=== PATIENT | male | born 1975 | race Caucasian/White ===

== ENCOUNTER 2021-09-19 13:40 | Emergency (ER) | payer OTHER ==
[2021-09-19 14:02] LABS: BASOPHILS % (AUTO) 0.5 %; EOSINOPHILS # (AUTO) 0.2 10^3/uL (0.0-0.7); EOSINOPHILS % (AUTO) 3.1 %; HCT - HEMATOCRIT 43.6 % (42.0-52.0); HGB - HEMOGLOBIN 15.5 g/dL (14.0-18.0); LYMPHOCYTES # (AUTO) 1.6 10^3/uL (1.5-3.5); LYMPHOCYTES % (AUTO) 25.4 %; MEAN CORPUSCULAR HEMOGLOBIN 28.5 pg (27.0-31.0); MEAN CORPUSCULAR HGB CONC 35.6 g/dL (32.0-36.0); MEAN CORPUSCULAR VOLUME 80.1 fL (80.0-94.0); MEAN PLATELET VOLUME 10.9 fL (7.4-11.4); MONOCYTES # (AUTO) 0.5 10^3/uL (0.0-1.0); MONOCYTES % (AUTO) 7.2 %; NEUTROPHILS # (AUTO) 4.1 10^3/uL (1.5-6.6); NEUTROPHILS % (AUTO) 63.2 %; PLT - PLATELET COUNT 196 10^3/uL (130-450); RED BLOOD COUNT 5.44 10^6/uL (4.70-6.10); RED CELL DISTRIBUTION WIDTH 13.6 % (12.0-15.0); WHITE BLOOD COUNT 6.4 x10^3/uL (4.8-10.8)
[2021-09-19 14:15] LABS: ALBUMIN 4.5 g/dL (3.2-5.5); ALBUMIN/GLOBULIN RATIO 1.6 (1.0-2.2); BILIRUBIN,TOTAL 0.8 mg/dL (0.2-1.0); CALCIUM 9.5 mg/dL (8.5-10.3); POTASSIUM 3.4 mmol/L (3.5-5.0); TOTAL PROTEIN 7.3 g/dL (6.7-8.2)
[2021-09-19 14:50] LABS: BILIRUBIN,URINE NEGATIVE (NEGATIVE); GLUCOSE, URINE (UA) NEGATIVE (NEGATIVE); KETONES,URINE (UA) NEGATIVE (NEGATIVE); LEUKOCYTE ESTERASE, URINE NEGATIVE (NEGATIVE); NITRITE,URINE NEGATIVE (NEGATIVE); OCCULT BLOOD,URINE SMALL (NEGATIVE); PH,URINE 5.5 PH (5.0-7.5); PROTEIN,URINE NEGATIVE (NEGATIVE); UROBILINOGEN,URINE 0.2 (NORMAL) E.U./dL (NORMAL)
[2021-09-19 14:51] LABS: CLARITY,URINE CLEAR (CLEAR)
[2021-09-19 14:57] LABS: BACTERIA,URINE Few /HPF (None Seen); CASTS, URINE 0-2 Hyaline Casts /LPF; MUCUS,URINE Few Strands; SQUAMOUS EPITHELIAL CELL,UR RARE Squamous (<= Few); WBC,URINE 0-3 /HPF (0-3)
[2021-09-19] MEDS ORDERED: KETOROLAC 30 MG/ML VIAL IVP STA (15:28)
[2021-09-19] MEDS ORDERED: SODIUM CHLORIDE 0.9% 1,000 ML IV STA (15:29)
--- NOTE | 2021-09-19 15:32 | ED Physician Documentation ---
History of Present Illness - Stated complaint Stated Complaint: BACK/SIDE PAIN - Chief complaint Chief Complaint: Abd Pain - Additonal information Additional information: 46-year-old male presents emergency department for evaluation of left flank pain with radiation to his groin and testes. He began having some low back pain about a week ago but over the last 5 to 6 hours he has noticed acute pain in the right flank that he reports is the worst of his life. He has had some nausea but no vomiting. He does have a history of renal colic requiring lithotripsy and bilateral ureter stenting in 2018. This was both in [facility] and [place]. He is a diabetic on Januvia. Also concurrently taking prazosin and Flomax. Review of Systems Constitutional: denies: Fever, Chills Throat: reports: Reviewed and negative Cardiac: reports: Reviewed and negative Respiratory: reports: Reviewed and negative GI: reports: Abdominal Pain. denies: Nausea, Vomiting : denies: Dysuria, Frequency, Hematuria Skin: reports: Reviewed and negative Musculoskeletal: reports: Reviewed and negative PD PAST MEDICAL HISTORY - Present Medications Home Medications: Ambulatory Orders Medication Instructions Recorded Confirmed oxyCODONE [Roxicodone] 5 mg PO TID PRN #15 tablet 09/19/21 - Allergies Allergies/Adverse Reactions: Allergies Allergy/AdvReac Type Severity Reaction Status Date / Time Penicillins Allergy Rash Verified 09/19/21 13:49 PD ED PE NORMAL - General General: Alert and oriented X 3. No: No acute distress (Appears to be in pain) - HEENT HEENT: Atraumatic, Moist mucous membranes - Neck Neck: Supple, no meningeal sign, No adenopathy - Cardiac Cardiac: RRR, No murmur - Respiratory Respiratory: No respiratory distress, Clear bilaterally - Abdomen Abdomen: Normal bowel sounds, Soft. No: Non tender (tenderness with palpation to the left flank) - Back Back: No CVA TTP, No spinal TTP - Derm Derm: Normal color, Warm and dry, No rash - Extremities Extremities: No deformity - Neuro Neuro: Alert and oriented X 3 Eye Opening: Spontaneous Motor: Obeys Commands Verbal: Oriented GCS Score: 15 Results - Vitals Vitals: Vital Signs - 24 hr 09/19/21 09/19/21 09/19/21 13:45 14:43 16:24 Temperature 36.2 C L Heart Rate 79 78 59 L Respiratory 16 16 16 Rate Blood Pressure 137/87 H 125/95 H 133/90 H O2 Saturation 100 96 95 Oxygen O2 Source Room air - Labs Labs: Laboratory Tests 09/19/21 09/19/21 09/19/21 11:41 13:56 13:56 WBC 6.4 RBC 5.44 Hgb 15.5 Hct 43.6 MCV 80.1 MCH 28.5 MCHC 35.6 RDW 13.6 Plt Count 196 MPV 10.9 Neut # (Auto) 4.1 Lymph # (Auto) 1.6 [place] # (Auto) 0.5 Eos # (Auto) 0.2 Baso # (Auto) 0.0 Absolute Nucleated RBC 0.00 Nucleated RBC % 0.0 Sodium 140 Potassium 3.4 L Chloride 100 L Carbon Dioxide 28 Anion Gap 12.0 BUN 19 Creatinine 1.0 Estimated GFR (MDRD) 81 L Glucose 238 H Calcium 9.5 Total Bilirubin 0.8 AST 33 ALT 55 Alkaline Phosphatase 71 Total Protein 7.3 Albumin 4.5 Globulin 2.8 Albumin/Globulin Ratio 1.6 Lipase 32 Urine Color YELLOW Urine Clarity CLEAR Urine pH 5.5 Ur Specific Staples >=1.030 H Urine Protein NEGATIVE Urine Glucose (UA) NEGATIVE Urine Ketones NEGATIVE Urine Occult Blood SMALL H Urine Nitrite NEGATIVE Urine Bilirubin NEGATIVE Urine Urobilinogen 0.2 (NORMAL) Ur Leukocyte Esterase NEGATIVE Urine RBC 6-10 H Urine WBC 0-3 Ur Squamous Epith Cells RARE Squamous Urine Bacteria Few Urine Casts 0-2 Hyaline Casts Urine Mucus Few Strands Ur Microscopic Review INDICATED Urine Culture Comments NOT INDICATED - Rads (name of study) Ct abd Radiology: Final report received (3 mm calculus at the proximal prostatic urethra likely representing a passing urolith. 3 mm nonobstructing right renal stone without hydronephrosis or perinephric stranding. Diverticulosis no-itis. Normal appendix.) PD MEDICAL DECISION MAKING - ED course Complexity details: considered differential, d/w patient, d/w family ED course: 46-year-old male presents emergency department for evaluation of acute left flank pain. He does have a history of renal and ureter colic requiring lithotripsy and stenting in the past. Last episode was in 2018. On presentation here he is modestly painful in the left flank. Screening labs showed no significant worrisome abnormality. Urine is not consistent with infection. A CT of the abdomen without contrast shows nonobstructing calculus at the prostatic urethra likely indicating a passing urolith. He also has some nonobstructing stones in the right kidney. No findings suggest hydroureter or hydronephrosis. 9 patient received a liter of crystalloid as well as Toradol and Dilaudid with modest relief of his pain. Screening labs and CT were discussed with patient his is at bedside. They will request referral to urology for follow-up. A limited prescription for oxycodone is being sent to the pharmacy. Emergent and worrisome return precautions discussed. I am prescribing a short course of short-acting opioid pain medication for this patient. 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 I have discussed that the opioids are for short term therapy only, and will not be refilled from the ED. Departure - Departure Disposition: 01 Home, Self Care Clinical Impression: Renal colic Condition: Stable Record reviewed to determine appropriate education?: Yes Instructions: ED Stone Renal W Colic Prescriptions: oxyCODONE [Roxicodone] 5 mg PO TID PRN #15 tablet PRN Reason: Pain Comments: Alison I hope that you are feeling better soon. You were seen today for pain on the left side of your abdomen. Your screening labs did not show any worrisome findings. There is no infection in your urine. However the CT scan does show some nonobstructing stones in your right kidney as well as findings to suggest that you are currently passing a kidney stone near your urethra. In general I recommend Tylenol 500 mg with food 2-3 times a day or alternate ibuprofen 600 mg with food 2-3 times a day for pain control. For more severe pain a limited prescription of oxycodone has been sent to your pharmacy. Please discuss this ED visit with your primary care provider. You should obtain referral to a urologist for further and longer-term evaluation and management of your renal colic. If at any point you develop worsening symptoms, high fevers uncontrolled vomiting or pain not controlled with this regimen of medication then please return immediately to the ER for a second evaluation. I am prescribing a short course of narcotic pain medication for you. These are potentially dangerous and addictive medications that should be used carefully. These medications may constipate you. Take an ckqj-pwi-dutguzw stool softener (docusate) twice daily with plenty of water while taking these medications. If you go 24 hours without a bowel movement, take [id number] miralax, per package instructions. Do not drink or drive while taking these medications. If you received narcotic or sedating medications while in the emergency department, do not drive for 24 hours. Store this medication in a safe, secure place and out of reach of children. It is a violation of federal law to give or sell this medication to another person or to use in a manner other than prescribed. The ED will not refill narcotic prescriptions, including prescriptions lost or stolen. To dispose of unwanted medications: 1. [facility] [address] in [place] has a medication drop box. They accept prescription medications (in pill form) Friday through Friday 9:00 a.m. to 5:00 p.m. 2. The [facility] [employer] accepts prescription medications (in pill form only) for disposal year round. Call for more information. 3. Contact the [facility] for the next [facility] sponsored prescription drug collection event. , [phone], or [phone]; Note that many narcotic pain relievers also contain Tylenol/acetaminophen. Please ensure that your total dose of acetaminophen from all sources does not exceed 3 g (3000 mg) per day.
[2021-09-19] MEDS ORDERED: ONDANSETRON 4 MG/2 ML VIAL IVP STA (15:52)
[2021-09-19] MEDS ORDERED: HYDROmorphone 1 MG/ML CARPUJECT IVP STA (15:52)
--- NOTE | 2021-09-19 16:13 | CT Report ---
PROCEDURE: Abdomen/Pelvis WO INDICATIONS: ? renal or ureter colic TECHNIQUE: Noncontrast 5 mm thick sections acquired from the diaphragms to the symphysis. 5 mm coronal and sagi ttal reformats were then performed. For radiation dose reduction, the following was used: automated exposure control, adjustment of mA and/or kV according to patient size. COMPARISON: None. FINDINGS: Image quality: Excellent. ABDOMEN: Lung bases: Lung bases are clear. Heart size is normal. Solid organs: Liver and spleen are normal in size. There are geographic areas of fatty infiltration of the liver. Gallbladder is unremarkable. Pancreas is normal in contours. No peripancreatic inflam mation. No adrenal nodules. There is a 3 mm punctate nonobstructing right renal stone without hydron ephrosis or perinephric stranding. Bilateral ureters are normal in course and caliber. No ureteral st ones seen. Left kidney is normal in size, without hydronephrosis or nephrolithiasis. Peritoneum and bowel: Unenhanced bowel loops demonstrate normal wall thickness and caliber. No free fluid or air. Scattered colonic diverticulosis. No acute diverticulitis. Normal appendix. Nodes and vessels: No retroperitoneal or mesenteric adenopathy by size criteria. Aorta and inferior vena cava are normal in caliber. Scattered atherosclerotic calcifications. Miscellaneous: No ventral hernias. PELVIS: Genitourinary: Bladder wall thickness is normal. No urinary bladder stone. There is a 3 mm punctate calcification noted in the central, midline prostate at the expected location of the proximal prostat ic urethra (Image 97/series 3). Miscellaneous: No inguinal hernias or adenopathy. Bones: No suspicious bony lesions. No acute vertebral body compression fractures. IMPRESSION: 1. A 3 mm calculus visualized at the expected location of the proximal prostatic urethra likely repre senting a passing urolith. 2. A 3 mm nonobstructing right renal stone without associated hydronephrosis or perinephric stranding . 3. Normal noncontrast CT appearance of the left kidney without evidence for renal stones or hydroneph rosis. 4. Colonic diverticulosis without acute diverticulitis. 5. Normal appearance of the appendix. 6. Other chronic findings as above Reviewed by: Mc Walls MD on 09/19/2021 4:12 PM PDT Approved by: Mc Walls MD on 09/19/2021 4:12 PM PDT Station ID: [id number]
[2021-09-19 16:25] VITALS: BP 133/90
== END 2021-09-19 16:56 | disposition home or self-care (01) ==
LOC: ED 13:40
DX: N23 Unspecified renal colic (principal)
CPT/HCPCS: 36415; 74176; 80053; 81001; 83690; 85025; 96374; 96375; 99282; 99284; J1170; 81003; 87086

== ENCOUNTER 2022-04-12 12:06 | Outpatient (CLI) | payer OTHER | END 2022-04-12 12:07 | disposition critical access hospital (66) | LOC: EMS 12:06 | DX: R07.89 Other chest pain (principal); R11.0 Nausea; R42 Dizziness and giddiness; I10 Essential (primary) hypertension | CPT/HCPCS: A0425; A0427 ==

== ENCOUNTER 2022-04-12 12:36 | Emergency (ER) | payer OTHER ==
--- NOTE | 2022-04-12 12:49 | ED Physician Documentation ---
PD HPI CHEST PAIN - Stated complaint Stated Complaint: CHEST TIGHTNESS - Chief complaint Chief Complaint: Cardiac - History obtained from History obtained from: Patient - Additional information Additional information: 47-year-old gentleman with history of hypertension and diabetes. No family history or personal history of coronary disease. About a week ago he developed brief shocklike chest pain with diaphoresis while walking. Today he has had 3 episodes of chest pain, all while walking. He developed shocklike pain across the left shoulder heaviness on the left side and diaphoresis with shortness of breath. Each episode lasted 30 seconds to a minute. Then went away. He is pain-free now. He had stress testing maybe 4 years ago which was reportedly negative. No recent travel, pedal edema or calf pain. EMS gave him aspirin prior to arrival. Review of Systems Constitutional: reports: Sweats. denies: Fever, Fatigue Cardiac: reports: Chest pain / pressure Respiratory: reports: Dyspnea PD PAST MEDICAL HISTORY - Past Medical History : Kidney stones - Present Medications Home Medications: Ambulatory Orders Medication Instructions Recorded Confirmed Atorvastatin [Lipitor] 20 mg PO DAILY 04/12/22 04/12/22 Celecoxib [CeleBREX] 100 mg PO DAILY 04/12/22 04/12/22 Chlorthalidone 25 mg PO DAILY 04/12/22 04/12/22 Cyclobenzaprine [Flexeril] 10 mg PO TID PRN 04/12/22 04/12/22 Diclofenac Sodium 1% Gel [Voltaren 2 - 4 gm TOP QID PRN MDD 32 04/12/22 04/12/22 Gel] Duloxetine HCl [Cymbalta] 120 mg PO DAILY 04/12/22 04/12/22 Gabapentin [Neurontin] 1 - 2 cap PO TID PRN 04/12/22 04/12/22 Lisinopril [Zestril] 40 mg PO DAILY 04/12/22 04/12/22 Nitroglycerin [Nitrostat] 0.4 mg SL Q5MIN PRN #1 tab 04/12/22 Prazosin [Minipress] 3 - 5 cap PO DAILY PM 04/12/22 04/12/22 Sildenafil Citrate 0 mg PO ONCE 04/12/22 04/12/22 Sitagliptin Phos/Metformin HCl 1 each PO BID 04/12/22 04/12/22 [Janumet Xr 50-1,000 mg Tablet] Tamsulosin [Flomax] 1 cap PO DAILY 04/12/22 04/12/22 hydrOXYzine HCL [Hydroxyzine HCl] 25 mg PO DAILY 04/12/22 04/12/22 oxyCODONE [Roxicodone] 5 mg PO ONCE 04/12/22 04/12/22 oxyCODONE [Roxicodone] 5 mg PO Q6H PRN 04/12/22 04/12/22 traZODone [Desyrel] 0.5 - 1.5 mg PO DAILY PM PRN 04/12/22 04/12/22 - Allergies Allergies/Adverse Reactions: Allergies Allergy/AdvReac Type Severity Reaction Status Date / Time Penicillins Allergy Rash Verified 04/12/22 12:46 - Social History Does the pt smoke?: No PD ED PE NORMAL - Vitals Vital signs reviewed: Yes - General General: Alert and oriented X 3, No acute distress - HEENT HEENT: PERRL, EOMI - Neck Neck: Supple, no meningeal sign, No bony TTP - Cardiac Cardiac: RRR, No murmur - Respiratory Respiratory: No respiratory distress, Clear bilaterally - Abdomen Abdomen: Non tender - Back Back: No CVA TTP, No spinal TTP - Derm Derm: Normal color, Warm and dry - Extremities Extremities: No edema, No calf tenderness / cord - Neuro Neuro: Alert and oriented X 3, Normal speech Results - Vitals Vitals: Vital Signs - 24 hr 04/12/22 04/12/22 04/12/22 12:42 13:15 13:30 Temperature 36.6 C Heart Rate 77 68 61 Respiratory 14 16 17 Rate Blood Pressure 135/91 H 139/87 H 126/93 H O2 Saturation 100 98 97 04/12/22 04/12/22 04/12/22 14:00 14:30 15:00 Temperature Heart Rate 68 64 64 Respiratory 17 16 19 Rate Blood Pressure 138/85 H 137/83 H 137/92 H O2 Saturation 99 99 95 04/12/22 16:05 Temperature Heart Rate 61 Respiratory 15 Rate Blood Pressure 143/88 H O2 Saturation 96 Oxygen O2 Source Room air - EKG (time done) 1240 Rate: Rate (enter#) (78) Rhythm: NSR [place]: Normal Intervals: Normal MO QRS: Normal Ischemia: Normal ST segments - Labs Labs: Laboratory Tests 04/12/22 04/12/22 04/12/22 12:51 12:51 12:51 WBC 5.7 RBC 5.13 Hgb 14.5 Hct 41.8 L MCV 81.5 MCH 28.3 MCHC 34.7 RDW 13.1 Plt Count 187 MPV 11.1 Neut # (Auto) 3.6 Lymph # (Auto) 1.5 [place] # (Auto) 0.4 Eos # (Auto) 0.2 Baso # (Auto) 0.0 Absolute Nucleated RBC 0.00 Nucleated RBC % 0.0 Sodium 133 L Potassium 3.1 L Chloride 98 L Carbon Dioxide 26 Anion Gap 9.0 BUN 19 Creatinine 0.9 Estimated GFR (MDRD) 91 Glucose 197 H Calcium 8.5 Total Bilirubin 0.7 AST 23 ALT 40 Alkaline Phosphatase 74 Troponin I High Sens 5.6 Total Protein 6.8 Albumin 3.9 Globulin 2.9 Albumin/Globulin Ratio 1.3 Lipase 79 H SARS-CoV-2 (PCR) 04/12/22 04/12/22 14:50 14:54 WBC RBC Hgb Hct MCV MCH MCHC RDW Plt Count MPV Neut # (Auto) Lymph # (Auto) [place] # (Auto) Eos # (Auto) Baso # (Auto) Absolute Nucleated RBC Nucleated RBC % Sodium Potassium Chloride Carbon Dioxide Anion Gap BUN Creatinine Estimated GFR (MDRD) Glucose Calcium Total Bilirubin AST ALT Alkaline Phosphatase Troponin I High Sens 5.1 Total Protein Albumin Globulin Albumin/Globulin Ratio Lipase SARS-CoV-2 (PCR) NOT DETECTED - Rads (name of study) 1v cxr - NAD Radiology: Final report received, EMP read indepedently PD Medical Decision Making - ED course ED course: 47-year-old gentleman with episodic exertional chest pain and risk factors for coronary disease including diabetes and hypertension. Differential diagnosis would include aortic dissection, but the pain is not constant nor does it radiate to the back. There is nothing in the history or physical to suggest PE. His ischemic work-up here was negative, however there is still a significant concern for cardiac chest pain given the exercise-induced nature of the pain. As such calls were placed to tertiary facilities that could do an expedited ischemic work-up at approximately 1:20 PM for transfer. Subsequently a second troponin was done and flat. I discussed the case with Dr Gaurav Pereyra in [place]. He did not feel too concerned about the case nor the need for urgent transfer for an inpatient work- up. Recommended urgent outpatient work-up. Patient agreeable to this. Discussed close return precautions. Departure - Departure Disposition: 01 Home, Self Care Clinical Impression: Chest pain Qualifiers: Chest pain type: unspecified Qualified Code(s): R07.9 - Chest pain, unspecified Condition: Good Record reviewed to determine appropriate education?: Yes Instructions: Angina Dc Prescriptions: Nitroglycerin [Nitrostat] 0.4 mg SL Q5MIN PRN #1 tab PRN Reason: Chest Pain Comments: You were seen today for episodic chest pain, this is concerning to me, but I discussed your case with Dr. Gaurav Jane, labor and delivery nurse in [place] who felt that outpatient work-up was appropriate. If you develop recurrent pain please return immediately for reevaluation after taking a nitroglycerin. Take a baby aspirin a day. Talk with your PCM on Friday after the holiday about rapid referral for stress testing. Discharge Date/Time: 04/12/22 16:05
[2022-04-12 12:56] LABS: BASOPHILS % (AUTO) 0.5 %; EOSINOPHILS # (AUTO) 0.2 10^3/uL (0.0-0.7); HCT - HEMATOCRIT 41.8 % (42.0-52.0); HGB - HEMOGLOBIN 14.5 g/dL (14.0-18.0); LYMPHOCYTES # (AUTO) 1.5 10^3/uL (1.5-3.5); LYMPHOCYTES % (AUTO) 25.7 %; MEAN CORPUSCULAR HEMOGLOBIN 28.3 pg (27.0-31.0); MEAN CORPUSCULAR HGB CONC 34.7 g/dL (32.0-36.0); MEAN CORPUSCULAR VOLUME 81.5 fL (80.0-94.0); MEAN PLATELET VOLUME 11.1 fL (7.4-11.4); MONOCYTES # (AUTO) 0.4 10^3/uL (0.0-1.0); MONOCYTES % (AUTO) 7.5 %; NEUTROPHILS # (AUTO) 3.6 10^3/uL (1.5-6.6); NEUTROPHILS % (AUTO) 62.4 %; PLT - PLATELET COUNT 187 10^3/uL (130-450); RED BLOOD COUNT 5.13 10^6/uL (4.70-6.10); RED CELL DISTRIBUTION WIDTH 13.1 % (12.0-15.0); WHITE BLOOD COUNT 5.7 x10^3/uL (4.8-10.8)
--- OUTSIDE RECORDS SUMMARY | 2022-04-12 12:56 | EXTERNAL MEDICAL SUMMARY RPT | Continuity of Care Document ---
:1975 Author Organization [facility] Address [address] [place] [address] Phone Care Team Providers Name Role Phone Unavailable Unavailable Unavailable Cameron Bonds Unavailable Unavailable Allergies and Intolerances date description facility type (no date) [facility] (unknown) (no date) [facility] (unknown) Encounters No information. Functional Status No information. Immunizations No information. Medications date description facility 2022-03-04 00:00 Prednisone [facility] 2022-03-04 00:00 Cyclobenzaprine [facility] 2022-03-04 00:00 [facility] Problems date description facility 2022-03-04 00:00 [facility] Procedures date description facility 2022-03-04 00:00 MRI of lumbar spine without contrast [facility] Results/Labs test date author facility value unit interpret ation Result panel 1 (unknown) (no date) [facility]) Result panel 2 (unknown) (no date) (unknown[facility]) Result panel 3 (unknown) (no date) (unknown[facility]) Result panel 4 (unknown) (no date) (unknown[facility]) Result panel 5 (unknown) (no date) (unknown[facility]) Result panel 6 (unknown) (no date) (unknown[facility]) Result panel 7 (unknown) (no date) (unknown[facility]) Result panel 8 (unknown) (no date) (unknown[facility]) Result panel 9 (unknown) (no date) (unknown[facility]) Result panel 10 (unknown) (no date) (unknown[facility]) Result panel 11 (unknown) (no date) (unknown[facility]) Result panel 12 (unknown) (no date) (unknown[facility]) Result panel 13 (unknown) (no date) (unknown[facility]) Result panel 14 (unknown) (no date) (unknown[facility]) Result panel 15 (unknown) (no date) (unknown[facility]) Result panel 16 (unknown) (no date) (unknown[facility]) Result panel 17 (unknown) (no date) (unknown[facility]) Result panel 18 (unknown) (no date) (unknown[facility]) Result panel 19 (unknown) (no date) (unknown[facility]) Result panel 20 (unknown) (no date) (unknown[facility]) Result panel 21 (unknown) (no date) (unknown[facility]) Result panel 22 (unknown) (no date) (unknown[facility]) Result panel 23 (unknown) (no date) (unknown[facility]) Result panel 24 (unknown) (no date) (unknown[facility]) Result panel 25 (unknown) (no date) (unknown[facility]) Result panel 26 (unknown) (no date) (unknown[facility]) Result panel 27 (unknown) (no date) (unknown[facility]) Result panel 28 (unknown) (no date) (unknown[facility]) Result panel 29 (unknown) (no date) (unknown[facility]) Result panel 30 (unknown) (no date) (unknown[facility]) Result panel 31 (unknown) (no date) (unknown[facility]) Result panel 32 (unknown) (no date) (unknown[facility]) Result panel 33 (unknown) (no date) (unknown[facility]) Result panel 34 (unknown) (no date) (unknown[facility]) Result panel 35 (unknown) (no date) (unknown[facility]) Result panel 36 (unknown) (no date) (unknown[facility]) Result panel 37 (unknown) (no date) (unknown[facility]) Result panel 38 (unknown) (no date) (unknown[facility]) Result panel 39 (unknown) (no date) (unknown[facility]) Result panel 40 (unknown) (no date) (unknown[facility]) Result panel 41 (unknown) (no date) (unknown[facility]) Result panel 42 (unknown) (no date) (unknown[facility]) Result panel 43 (unknown) (no date) (unknown[facility]) Result panel 44 (unknown) (no date) (unknown[facility]) Result panel 45 (unknown) (no date) (unknown[facility]) Result panel 46 (unknown) (no date) (unknown[facility]) Result panel 47 (unknown) (no date) (unknown[facility]) Result panel 48 (unknown) (no date) (unknown[facility]) Result panel 49 (unknown) (no date) (unknown[facility]) Result panel 50 (unknown) (no date) (unknown[facility]) Result panel 51 (unknown) (no date) (unknown[facility]) Result panel 52 (unknown) (no date) (unknown[facility]) Result panel 53 (unknown) (no date) (unknown) [facility]) Result panel 54 (unknown) (no date) (unknown[facility]) Result panel 55 (unknown) (no date) (unknown[facility]) Result panel 56 (unknown) (no date) (unknown[facility]) Result panel 57 (unknown) (no date) (unknown[facility]) Result panel 58 (unknown) (no date) (unknown[facility]) Result panel 59 (unknown) (no date) (unknown[facility]) Result panel 60 (unknown) (no date) (unknown[facility]) Result panel 61 (unknown) (no date) (unknown[facility]) Result panel 62 (unknown) (no date) (unknown) [facility]) Result panel 63 (unknown) (no date) (unknown[facility]) Result panel 64 (unknown) (no date) (unknown[facility]) Result panel 65 (unknown) (no date) (unknown[facility]) Result panel 66 (unknown) (no date) (unknown[facility]) Result panel 67 (unknown) (no date) (unknown[facility]) Result panel 68 (unknown) (no date) (unknown[facility]) Result panel 69 (unknown) (no date) (unknown[facility]) Result panel 70 (unknown) (no date) (unknown[facility]) Result panel 71 (unknown) (no date) (unknown) [facility]) Result panel 72 (unknown) (no date) (unknown[facility]) Result panel 73 (unknown) (no date) (unknown[facility]) Result panel 74 (unknown) (no date) (unknown[facility]) Result panel 75 (unknown) (no date) (unknown) [facility]) Result panel 76 (unknown) (no date) (unknown[facility]) Result panel 77 (unknown) (no date) (unknown[facility]) Result panel 78 (unknown) (no date) (unknown) [facility]) Result panel 79 (unknown) (no date) (unknown) [facility]) Result panel 80 (unknown) (no date) (unknown[facility]) Result panel 81 (unknown) (no date) (unknown[facility]) Result panel 82 (unknown) (no date) (unknown[facility]) Result panel 83 (unknown) (no date) (unknown[facility]) Result panel 84 (unknown) (no date) (unknown) [facility]) Result panel 85 (unknown) (no date) (unknown[facility]) Result panel 86 (unknown) (no date) (unknown[facility]) Result panel 87 (unknown) (no date) (unknown[facility]) Result panel 88 (unknown) (no date) (unknown[facility]) Result panel 89 (unknown) (no date) (unknown[facility]) Result panel 90 (unknown) (no date) (unknown[facility]) Result panel 91 (unknown) (no date) (unknown[facility]) Result panel 92 (unknown) (no date) (unknown[facility]) Result panel 93 (unknown) (no date) (unknown[facility]) Result panel 94 (unknown) (no date) (unknown[facility]) Result panel 95 (unknown) (no date) (unknown[facility]) Result panel 96 (unknown) (no date) (unknown[facility]) Result panel 97 (unknown) (no date) (unknown[facility]) Result panel 98 (unknown) (no date) (unknown[facility]) Result panel 99 (unknown) (no date) (unknown[facility]) Result panel 100 (unknown) (no date) (unknown[facility]) Result panel 101 (unknown) (no date) (unknown[facility]) Result panel 102 (unknown) (no date) (unknown[facility]) Result panel 103 (unknown) (no date) (unknown[facility]) Result panel 104 (unknown) (no date) (unknown[facility]) Result panel 105 (unknown) (no date) (unknown[facility]) Result panel 106 (unknown) (no date) (unknown[facility]) Result panel 107 (unknown) (no date) (unknown[facility]) Result panel 108 (unknown) (no date) (unknown[facility]) Result panel 109 (unknown) (no date) (unknown[facility]) Result panel 110 (unknown) (no date) (unknown) [facility]) Result panel 111 (unknown) (no date) (unknown) [facility]) Result panel 112 (unknown) (no date) (unknown[facility]) Result panel 113 (unknown) (no date) (unknown) [facility]) Result panel 114 (unknown) (no date) (unknown) [facility]) Result panel 115 (unknown) (no date) (unknown) [facility]) Result panel 116 (unknown) (no date) (unknown) [facility]) Result panel 117 (unknown) (no date) (unknown) [facility]) Result panel 118 (unknown) (no date) (unknown) [facility]) Result panel 119 (unknown) (no date) (unknown) [facility]) Result panel 120 (unknown) (no date) (unknown) [facility]) Result panel 121 (unknown) (no date) (unknown) [facility]) Result panel 122 (unknown) (no date) (unknown[facility]) Result panel 123 (unknown) (no date) (unknown) [facility]) Result panel 124 (unknown) (no date) (unknown) [facility]) Result panel 125 (unknown) (no (unknown) (unknown) (no value) (units (unk nown) date) unknown) (unknown) (no (unknown) (unknown) 03/04/22 (units (unkno wn) date) unknown) (unknown) (no (unknown) (unknown) [id number] (units (unkno wn) date) unknown) (unknown) (no (unknown) (unknown) 1. No marrow (units (u nknown) date) edema. No acute unknown) compression fracture or spondylolisthesis . (unknown) (no (unknown) (unknown) [address] (units (unknown) date) unknown) (unknown) (no (unknown) (unknown) 2. Central disc (units (unknown) date) bulge and unknown) bilateral facet arthrosis at L4-5 level with mild (unknown) (no (unknown) (unknown) 3. No (units (unkno wn) date) significant disc unknown) bulge, canal stenosis or neural foraminal narrowing is (unknown) (no (unknown) (unknown) Accession (units (unkn own) date) Number: unknown) [id number] (unknown) (no (unknown) (unknown) Age/Sex: 47 / M (units (unknown) date) Date of Service: unknown) (unknown) (no (unknown) (unknown) Alignment and (units ( unknown) date) Curvature: There unknown) is normal bony alignment. (unknown) (no (unknown) (unknown) [place], [place] (units ( unknown) date) [id number] unknown) (unknown) (no (unknown) (unknown) Approved by: (units (u nknown) date) Too Rodriguez M.D. on unknown) 03/04/2022 at 13:02 (unknown) (no (unknown) (unknown) Bone Marrow: (units (u nknown) date) Marrow is of unknown) normal overall signal. No acute vertebral body (unknown) (no (unknown) (unknown) COMPARISON: (units (un known) date) [facility], unknown) MR, MR LUMBAR SPINE WO CON, 10/11/2021, 19:26. (unknown) (no (unknown) (unknown) : 1975 (units (unknown) date) Acct:[id number] unknown) (unknown) (no (unknown) (unknown) Dictated by: (units (u nknown) date) Too Rodriguez M.D. on unknown) 03/04/2022 at 12:55 (unknown) (no (unknown) (unknown) FINDINGS: (units (unkn own) date) unknown) (unknown) (no (unknown) (unknown) IMPRESSION: (units (un known) date) unknown) (unknown) (no (unknown) (unknown) INDICATIONS: (units (u nknown) date) can't pee back unknown) pain (unknown) (no (unknown) (unknown) Image quality: (units (unknown) date) Excellent. unknown) (unknown) (no (unknown) (unknown) [facility] (units (unknown) date) unknown) (unknown) (no (unknown) (unknown) L1-L2: Normal (units ( unknown) date) appearance. unknown) (unknown) (no (unknown) (unknown) L2-L3: Normal (units ( unknown) date) appearance. unknown) (unknown) (no (unknown) (unknown) L3-L4: Normal (units ( unknown) date) appearance. unknown) (unknown) (no (unknown) (unknown) L4-L5: Central (units (unknown) date) disc bulge at unknown) L4-5 level is seen new since previous study with (unknown) (no (unknown) (unknown) L5-S1: Normal (units ( unknown) date) appearance. unknown) (unknown) (no (unknown) (unknown) Loc: ED (units (unkno wn) date) unknown) (unknown) (no (unknown) (unknown) Magnetic (units (unkno wn) date) Resonance Report unknown) (unknown) (no (unknown) (unknown) Noncontrast (units (un known) date) sagittal T1 spin unknown) echo and T2 fast echo, sagittal STIR, and T2 fast (unknown) (no (unknown) (unknown) Ordering (units (unkno wn) date) Provider: unknown) Wendy Davis D.O. (unknown) (no (unknown) (unknown) PROCEDURE: MR (units ( unknown) date) LUMBAR SPINE WO unknown) CON (unknown) (no (unknown) (unknown) Paraspinous Soft (units (unknown) date) Tissues: No unknown) paravertebral masses. (unknown) (no (unknown) (unknown) Patient: (units (unkno wn) date) JaradMehran unknown) MR#: [id number] (unknown) (no (unknown) (unknown) Procedure: MR (units ( unknown) date) lumbar spine wo unknown) con (unknown) (no (unknown) (unknown) Signed (units (unkno wn) date) unknown) (unknown) (no (unknown) (unknown) Spinal Cord: (units (u nknown) date) Conus medullaris unknown) terminates at the T12-L1 level. Visualized cord (unknown) (no (unknown) (unknown) T12-L1: Normal (units (unknown) date) appearance. unknown) (unknown) (no (unknown) (unknown) TECHNIQUE: (units (unk nown) date) unknown) (unknown) (no (unknown) (unknown) central canal (units ( unknown) date) unknown) (unknown) (no (unknown) (unknown) compression (units (un known) date) unknown) (unknown) (no (unknown) (unknown) demonstrates (units (u nknown) date) normal signal and unknown) size. (unknown) (no (unknown) (unknown) effacement of (units ( unknown) date) thecal sac unknown) anteriorly. Mild bilateral neural foraminal narrowing (unknown) (no (unknown) (unknown) fractures. (units (unk nown) date) unknown) (unknown) (no (unknown) (unknown) is also (units (unkno wn) date) unknown) (unknown) (no (unknown) (unknown) may be (units (unkno wn) date) performed. unknown) (unknown) (no (unknown) (unknown) mild (units (unkno wn) date) unknown) (unknown) (no (unknown) (unknown) noted. (units (unkno wn) date) unknown) (unknown) (no (unknown) (unknown) rest of the (units (un known) date) lumbar spine. unknown) (unknown) (no (unknown) (unknown) seen in (units (unkno wn) date) unknown) (unknown) (no (unknown) (unknown) spin echo (units (unkn own) date) unknown) (unknown) (no (unknown) (unknown) stenosis and (units (u nknown) date) mild bilateral unknown) neural foraminal narrowing. (unknown) (no (unknown) (unknown) through the (units (un known) date) lumbar spine. In unknown) cases with scoliosis, additional coronal T2 fast Result panel 126 (unknown) (no (unknown) (unknown) (no value) (units (unk nown) date) unknown) (unknown) (no (unknown) (unknown) (Janumet) (units (unkn own) date) unknown) (unknown) (no (unknown) (unknown) 03/04/22 10:54 (units (unknown) date) unknown) (unknown) (no (unknown) (unknown) 03/04/22 10:59 (units (unknown) date) unknown) (unknown) (no (unknown) (unknown) 03/04/22 (units (unkno wn) date) unknown) (unknown) (no (unknown) (unknown) 100 mg PO DAILY (units (unknown) date) unknown) (unknown) (no (unknown) (unknown) 10:28 (units (unkno wn) date) unknown) (unknown) (no (unknown) (unknown) 20 mg PO DAILY (units (unknown) date) unknown) (unknown) (no (unknown) (unknown) 25 mg PO Q6HR (units ( unknown) date) PRN (Reason: unknown) Spasms) Qty: 30 0RF (unknown) (no (unknown) (unknown) 30 mg PO DAILY (units (unknown) date) unknown) (unknown) (no (unknown) (unknown) 40 mg PO DAILY (units (unknown) date) unknown) (unknown) (no (unknown) (unknown) [id number] (units (unkno wn) date) unknown) (unknown) (no (unknown) (unknown) 50 - 1,000 tab (units (unknown) date) PO BID unknown) (unknown) (no (unknown) (unknown) 50 mg PO BID (units (u nknown) date) unknown) (unknown) (no (unknown) (unknown) 60 mg PO DAILY (units (unknown) date) unknown) (unknown) (no (unknown) (unknown) Age/Sex: 47 / M (units (unknown) date) unknown) (unknown) (no (unknown) (unknown) Allergies (units (unkn own) date) unknown) (unknown) (no (unknown) (unknown) Allergy/AdvReac (units (unknown) date) Type Severity unknown) Reaction Status Date / Time (unknown) (no (unknown) (unknown) Arthritis (units (unkn own) date) unknown) (unknown) (no (unknown) (unknown) Blood Pressure (units (unknown) date) 137/89 03/04/22 unknown) 10:28 (unknown) (no (unknown) (unknown) Blood Pressure (units (unknown) date) 137 unknown) (unknown) (no (unknown) (unknown) CBC Auto Diff (units ( unknown) date) [Complete Blood unknown) Count AUTO DIFF] Stat (unknown) (no (unknown) (unknown) CMP (units (unkno wn) date) [Comprehensive unknown) Metabolic Panel] Stat (unknown) (no (unknown) (unknown) COVID (-02/2021) (units (unknown) date) unknown) (unknown) (no (unknown) (unknown) Chief Complaint: (units (unknown) date) Neuro unknown) Symptoms/Deficit (unknown) (no (unknown) (unknown) Course (units (unkno wn) date) unknown) (unknown) (no (unknown) (unknown) : 1975 (units (unknown) date) Acct:[id number] unknown) (unknown) (no (unknown) (unknown) Date of Service: (units (unknown) date) 03/04/22 unknown) (unknown) (no (unknown) (unknown) 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 unknown) (unknown) (no (unknown) (unknown) Departure (units (unkn own) date) unknown) (unknown) (no (unknown) (unknown) Depression (units (unk nown) date) unknown) (unknown) (no (unknown) (unknown) Diabetes (units (unkno wn) date) unknown) (unknown) (no (unknown) (unknown) Discharge Plan (units (unknown) date) unknown) (unknown) (no (unknown) (unknown) Discontinued (units (u nknown) date) Medications unknown) (unknown) (no (unknown) (unknown) ED Orders (units (unkn own) date) unknown) (unknown) (no (unknown) (unknown) ER Physician: (units ( unknown) date) Wendy Davis unknown) D.O. (unknown) (no (unknown) (unknown) Emergency Report (units (unknown) date) unknown) (unknown) (no (unknown) (unknown) Exam (units (unkno wn) date) unknown) (unknown) (no (unknown) (unknown) Fracture (units (unkno wn) date) unknown) (unknown) (no (unknown) (unknown) General (units (unkno wn) date) unknown) (unknown) (no (unknown) (unknown) HPI - Neuro (units (un known) date) Symptoms/Deficit unknown) (unknown) (no (unknown) (unknown) Headache, (units (unkn own) date) migraine unknown) (unknown) (no (unknown) (unknown) Hematologic/Lymp (units (unknown) date) hatic unknown) (unknown) (no (unknown) (unknown) Hepatic (units (unkno wn) date) steatosis unknown) (unknown) (no (unknown) (unknown) History of (units (unk nown) date) Present Illness unknown) (unknown) (no (unknown) (unknown) History of (units (unk nown) date) hernia repair unknown) (unknown) (no (unknown) (unknown) History of (units (unk nown) date) vasectomy unknown) (unknown) (no (unknown) (unknown) Home Medications (units (unknown) date) unknown) (unknown) (no (unknown) (unknown) Hydromorphone (units ( unknown) date) HCl unknown) (Hydromorphone 1 Mg Inj) 1 mg IV NOW ONE (unknown) (no (unknown) (unknown) Hyperlipidemia (units (unknown) date) unknown) (unknown) (no (unknown) (unknown) Hypertension (units (u nknown) date) unknown) (unknown) (no (unknown) (unknown) Initial Vital (units ( unknown) date) Signs unknown) (unknown) (no (unknown) (unknown) Initial Vital (units ( unknown) date) Signs: unknown) (unknown) (no (unknown) (unknown) [facility] (units (unknown) date) [address] unknown) [place] [address] (unknown) (no (unknown) (unknown) Janumet 50-1,000 (units (unknown) date) mg tablet unknown) (unknown) (no (unknown) (unknown) MR lumbar spine (units (unknown) date) wo/w con Stat unknown) (unknown) (no (unknown) (unknown) Medical History (units (unknown) date) (Reviewed unknown) 05/28/21 @ 14:56 by Delbert Rudolph MD) (unknown) (no (unknown) (unknown) Medication (units (unk nown) date) Instructions unknown) Recorded Confirmed (unknown) (no (unknown) (unknown) Medication (units (unk nown) date) Instructions unknown) Recorded (unknown) (no (unknown) (unknown) Mode of arrival: (units (unknown) date) Wheelchair unknown) (unknown) (no (unknown) (unknown) No Action (units (unkn own) date) unknown) (unknown) (no (unknown) (unknown) On (units (unkno wn) date) Anticoagulants: unknown) No (unknown) (no (unknown) (unknown) Ordered: (units (unkno wn) date) unknown) (unknown) (no (unknown) (unknown) Orders (units (unkno wn) date) unknown) (unknown) (no (unknown) (unknown) Oxygen Delivery (units (unknown) date) Method 03/04/22 unknown) 10:28 (unknown) (no (unknown) (unknown) Oxygen Delivery (units (unknown) date) Method Room Air unknown) (unknown) (no (unknown) (unknown) Patient History (units (unknown) date) unknown) (unknown) (no (unknown) (unknown) Patient: (units (unkno wn) date) Mehran Abraham unknown) MR#: [id number] (unknown) (no (unknown) (unknown) Penicillins (units (un known) date) Allergy Mild Rash unknown) Verified 03/04/22 10:33 (unknown) (no (unknown) (unknown) Prescriptions: (units (unknown) date) unknown) (unknown) (no (unknown) (unknown) Previous Rx's (units ( unknown) date) unknown) (unknown) (no (unknown) (unknown) Pulse Oximetry (units (unknown) date) 97 03/04/22 10:28 unknown) (unknown) (no (unknown) (unknown) Pulse Oximetry (units (unknown) date) 97 unknown) (unknown) (no (unknown) (unknown) Pulse Rate 87 (units ( unknown) date) 03/04/22 10:28 unknown) (unknown) (no (unknown) (unknown) Pulse Rate 87 (units ( unknown) date) unknown) (unknown) (no (unknown) (unknown) Referrals: (units (unk nown) date) unknown) (unknown) (no (unknown) (unknown) Related Data (units (u nknown) date) unknown) (unknown) (no (unknown) (unknown) Respiratory Rate (units (unknown) date) 20 03/04/22 10:28 unknown) (unknown) (no (unknown) (unknown) Respiratory Rate (units (unknown) date) 20 unknown) (unknown) (no (unknown) (unknown) Review of (units (unkn own) date) Systems unknown) (unknown) (no (unknown) (unknown) Rx Instructions: (units (unknown) date) unknown) (unknown) (no (unknown) (unknown) Signed By: (units (unk nown) date) unknown) (unknown) (no (unknown) (unknown) Smoking Status: (units (unknown) date) Never smoker unknown) (unknown) (no (unknown) (unknown) Social History (units (unknown) date) (Reviewed unknown) 05/17/21 @ 13:15 by Mckenna Meza DO) (unknown) (no (unknown) (unknown) Source: patient (units (unknown) date) unknown) (unknown) (no (unknown) (unknown) Stated (units (unkno wn) date) Complaint: sent unknown[facility]-8 thinks slipped dis (unknown) (no (unknown) (unknown) Stop: 03/04/22 (units (unknown) date) 11:01 unknown) (unknown) (no (unknown) (unknown) Substance Use (units ( unknown) date) Type: does not unknown) use (unknown) (no (unknown) (unknown) Surgical History (units (unknown) date) (Reviewed unknown) 05/28/21 @ 14:56 by Delbert Rudolph MD) (unknown) (no (unknown) (unknown) Take 2 capsule (units (unknown) date) by oral route 2 unknown) times every day in the morning and evening (unknown) (no (unknown) (unknown) Temperature 97.8 (units (unknown) date) F 03/04/22 10:28 unknown) (unknown) (no (unknown) (unknown) Temperature 97.8 (units (unknown) date) F unknown) (unknown) (no (unknown) (unknown) Time Seen by (units (u nknown) date) Provider: unknown) 03/04/22 10:48 (unknown) (no (unknown) (unknown) Traumatic (units (unkn own) date) complete tear of unknown) right rotator cuff (unknown) (no (unknown) (unknown) Poncho Anguiano, (units (unknown) date) DO [Primary Care unknown) Provider] (unknown) (no (unknown) (unknown) Vital Signs - 8 (units (unknown) date) hr unknown) (unknown) (no (unknown) (unknown) Vital Signs (units (un known) date) unknown) (unknown) (no (unknown) (unknown) Vital signs: (units (u nknown) date) unknown) (unknown) (no (unknown) (unknown) With Meals (units (unk nown) date) unknown) (unknown) (no (unknown) (unknown) alcohol intake (units (unknown) date) frequency: unknown) holidays/special occasions only (unknown) (no (unknown) (unknown) atorvastatin 20 (units (unknown) date) mg tablet 20 mg unknown) PO DAILY 04/18/21 05/28/21 (unknown) (no (unknown) (unknown) atorvastatin 20 (units (unknown) date) mg tablet unknown) (unknown) (no (unknown) (unknown) celecoxib 100 mg (units (unknown) date) capsule 100 mg PO unknown) DAILY 04/18/21 05/28/21 (unknown) (no (unknown) (unknown) celecoxib 100 mg (units (unknown) date) capsule unknown) (unknown) (no (unknown) (unknown) duloxetine 30 mg (units (unknown) date) capsule,delayed unknown) 30 mg PO DAILY 04/18/21 05/28/21 (unknown) (no (unknown) (unknown) duloxetine 30 mg (units (unknown) date) capsule,delayed unknown) release(DR/EC) (unknown) (no (unknown) (unknown) duloxetine 60 mg (units (unknown) date) capsule,delayed unknown) 60 mg PO DAILY 04/18/21 05/28/21 (unknown) (no (unknown) (unknown) duloxetine 60 mg (units (unknown) date) capsule,delayed unknown) release(DR/EC) (unknown) (no (unknown) (unknown) household (units (unkn own) date) members: children unknown) (unknown) (no (unknown) (unknown) hydroxyzine (units (un known) date) pamoate 25 mg unknown) Capsule (unknown) (no (unknown) (unknown) hydroxyzine (units (un known) date) pamoate 25 mg unknown) capsule 25 mg PO Q6HR PRN Spasms #30 caps 04/20/21 (unknown) (no (unknown) (unknown) lisinopril 40 mg (units (unknown) date) tablet 40 mg PO unknown) DAILY 04/18/21 05/28/21 (unknown) (no (unknown) (unknown) lisinopril 40 mg (units (unknown) date) tablet unknown) (unknown) (no (unknown) (unknown) mg-metformin (units (u nknown) date) 1,000 mg tablet unknown) (unknown) (no (unknown) (unknown) release (units (unkno wn) date) unknown) (unknown) (no (unknown) (unknown) sitagliptin (units (un known) date) phosphate 50 50 - unknown) 1,000 tab PO BID 04/18/21 05/28/21 (unknown) (no (unknown) (unknown) topiramate 25 mg (units (unknown) date) tablet 50 mg PO unknown) BID 04/18/21 05/28/21 (unknown) (no (unknown) (unknown) topiramate 25 mg (units (unknown) date) tablet unknown) Result panel 127 (unknown) (no (unknown) (unknown) (no value) (units (unk nown) date) unknown) (unknown) (no (unknown) (unknown) (Janumet) (units (unkn own) date) unknown) (unknown) (no (unknown) (unknown) 03/04/22 10:54 (units (unknown) date) unknown) (unknown) (no (unknown) (unknown) 03/04/22 10:59 (units (unknown) date) unknown) (unknown) (no (unknown) (unknown) 03/04/22 (units (unkno wn) date) unknown) (unknown) (no (unknown) (unknown) 100 mg PO DAILY (units (unknown) date) unknown) (unknown) (no (unknown) (unknown) 10:28 (units (unkno wn) date) unknown) (unknown) (no (unknown) (unknown) 20 mg PO DAILY (units (unknown) date) unknown) (unknown) (no (unknown) (unknown) 25 mg PO Q6HR PRN (units (unknown) date) (Reason: Spasms) unknown) Qty: 30 0RF (unknown) (no (unknown) (unknown) 30 mg PO DAILY (units (unknown) date) unknown) (unknown) (no (unknown) (unknown) 40 mg PO DAILY (units (unknown) date) unknown) (unknown) (no (unknown) (unknown) [id number] (units (unkno wn) date) unknown) (unknown) (no (unknown) (unknown) 50 - 1,000 tab PO (units (unknown) date) BID unknown) (unknown) (no (unknown) (unknown) 50 mg PO BID (units (u nknown) date) unknown) (unknown) (no (unknown) (unknown) 60 mg PO DAILY (units (unknown) date) unknown) (unknown) (no (unknown) (unknown) ABDOMEN: Soft, (units (unknown) date) nontender. unknown) Normoactive bowel sounds all 4 quadrants. No (unknown) (no (unknown) (unknown) Age/Sex: 47 / M (units (unknown) date) unknown) (unknown) (no (unknown) (unknown) Allergies (units (unkn own) date) unknown) (unknown) (no (unknown) (unknown) Allergy/AdvReac (units (unknown) date) Type Severity unknown) Reaction Status Date / Time (unknown) (no (unknown) (unknown) Arthritis (units (unkn own) date) unknown) (unknown) (no (unknown) (unknown) BACK: Tender (units (u nknown) date) midline L1-L2 area unknown) no step-off (unknown) (no (unknown) (unknown) Blood Pressure (units (unknown) date) 137/89 03/04/22 unknown) 10:28 (unknown) (no (unknown) (unknown) Blood Pressure (units (unknown) date) 137 unknown) (unknown) (no (unknown) (unknown) CARDIOVASCULAR: (units (unknown) date) Regular rate and unknown) rhythm without murmurs, rubs or gallops. (unknown) (no (unknown) (unknown) CBC Auto Diff (units ( unknown) date) [Complete Blood unknown) Count AUTO DIFF] Stat (unknown) (no (unknown) (unknown) CMP (units (unkno wn) date) [Comprehensive unknown) Metabolic Panel] Stat (unknown) (no (unknown) (unknown) COVID (-02/2021) (units (unknown) date) unknown) (unknown) (no (unknown) (unknown) Chief Complaint: (units (unknown) date) Neuro unknown) Symptoms/Deficit (unknown) (no (unknown) (unknown) Course (units (unkno wn) date) unknown) (unknown) (no (unknown) (unknown) : 1975 (units (unknown) date) Acct:[id number] unknown) (unknown) (no (unknown) (unknown) Date of Service: (units (unknown) date) 03/04/22 unknown) (unknown) (no (unknown) (unknown) 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 unknown) (unknown) (no (unknown) (unknown) Departure (units (unkn own) date) unknown) (unknown) (no (unknown) (unknown) Depression (units (unk nown) date) unknown) (unknown) (no (unknown) (unknown) Diabetes (units (unkno wn) date) unknown) (unknown) (no (unknown) (unknown) Discharge Plan (units (unknown) date) unknown) (unknown) (no (unknown) (unknown) Discontinued (units (u nknown) date) Medications unknown) (unknown) (no (unknown) (unknown) ED Orders (units (unkn own) date) unknown) (unknown) (no (unknown) (unknown) ER Physician: (units ( unknown) date) eWndy Davis unknown) D.O. (unknown) (no (unknown) (unknown) EXTREMITIES: (units (u nknown) date) Normal range of unknown) motion, no clubbing or edema. Neurovascularly (unknown) (no (unknown) (unknown) Emergency Report (units (unknown) date) unknown) (unknown) (no (unknown) (unknown) Exam (units (unkno wn) date) unknown) (unknown) (no (unknown) (unknown) Fracture (units (unkno wn) date) unknown) (unknown) (no (unknown) (unknown) GENERAL: Alert (units (unknown) date) 47-year-old male unknown) and in no acute distress. (unknown) (no (unknown) (unknown) General (units (unkno wn) date) unknown) (unknown) (no (unknown) (unknown) HEENT: Head (units (un known) date) atraumatic,EOMI, unknown) pupils reactive, face symmetric, moist mucous (unknown) (no (unknown) (unknown) HPI - Neuro (units (un known) date) Symptoms/Deficit unknown) (unknown) (no (unknown) (unknown) HPI Narrative: (units (unknown) date) unknown) (unknown) (no (unknown) (unknown) Headache, (units (unkn own) date) migraine unknown) (unknown) (no (unknown) (unknown) Hematologic/Lymph (units (unknown) date) atic unknown) (unknown) (no (unknown) (unknown) Hepatic steatosis (units (unknown) date) unknown) (unknown) (no (unknown) (unknown) History of (units (unk nown) date) Present Illness unknown) (unknown) (no (unknown) (unknown) History of hernia (units (unknown) date) repair unknown) (unknown) (no (unknown) (unknown) History of (units (unk nown) date) vasectomy unknown) (unknown) (no (unknown) (unknown) Home Medications (units (unknown) date) unknown) (unknown) (no (unknown) (unknown) Hydromorphone HCl (units (unknown) date) (Hydromorphone 1 unknown) Mg Inj) 1 mg IV NOW ONE (unknown) (no (unknown) (unknown) Hyperlipidemia (units (unknown) date) unknown) (unknown) (no (unknown) (unknown) Hypertension (units (u nknown) date) unknown) (unknown) (no (unknown) (unknown) Initial Vital (units ( unknown) date) Signs unknown) (unknown) (no (unknown) (unknown) Initial Vital (units ( unknown) date) Signs: unknown) (unknown) (no (unknown) (unknown) [facility] (units (unknown) date) [address] unknown) [place] [address] (unknown) (no (unknown) (unknown) Janumet 50-1,000 (units (unknown) date) mg tablet unknown) (unknown) (no (unknown) (unknown) MR lumbar spine (units (unknown) date) wo/w con Stat unknown) (unknown) (no (unknown) (unknown) Medical History (units (unknown) date) (Reviewed 05/28/21 unknown) @ 14:56 by Delbert Rudolph MD) (unknown) (no (unknown) (unknown) Medication (units (unk nown) date) Instructions unknown) Recorded Confirmed (unknown) (no (unknown) (unknown) Medication (units (unk nown) date) Instructions unknown) Recorded (unknown) (no (unknown) (unknown) Mode of arrival: (units (unknown) date) Wheelchair unknown) (unknown) (no (unknown) (unknown) NEUROLOGICAL: (units ( unknown) date) Alert and oriented unknown) x4. Left leg is weak but he is able to lift up (unknown) (no (unknown) (unknown) No Action (units (unkn own) date) unknown) (unknown) (no (unknown) (unknown) On (units (unkno wn) date) Anticoagulants: No unknown) (unknown) (no (unknown) (unknown) Ordered: (units (unkno wn) date) unknown) (unknown) (no (unknown) (unknown) Orders (units (unkno wn) date) unknown) (unknown) (no (unknown) (unknown) Oxygen Delivery (units (unknown) date) Method 03/04/22 unknown) 10:28 (unknown) (no (unknown) (unknown) Oxygen Delivery (units (unknown) date) Method Room Air unknown) (unknown) (no (unknown) (unknown) Patient History (units (unknown) date) unknown) (unknown) (no (unknown) (unknown) Patient is a (units (u nknown) date) 47-year-old male unknown) history of diabetes chronic back pain presenting (unknown) (no (unknown) (unknown) Patient: (units (unkno wn) date) Mehran Abraham R unknown) MR#: [id number] (unknown) (no (unknown) (unknown) Penicillins (units (un known) date) Allergy Mild Rash unknown) Verified 03/04/22 10:33 (unknown) (no (unknown) (unknown) Prescriptions: (units (unknown) date) unknown) (unknown) (no (unknown) (unknown) Previous Rx's (units ( unknown) date) unknown) (unknown) (no (unknown) (unknown) Pulse Oximetry 97 (units (unknown) date) 03/04/22 10:28 unknown) (unknown) (no (unknown) (unknown) Pulse Oximetry 97 (units (unknown) date) unknown) (unknown) (no (unknown) (unknown) Pulse Rate 87 (units ( unknown) date) 03/04/22 10:28 unknown) (unknown) (no (unknown) (unknown) Pulse Rate 87 (units ( unknown) date) unknown) (unknown) (no (unknown) (unknown) RESPIRATORY: (units (u nknown) date) Breath sounds unknown) equal bilaterally, no wheezes rales or rhonchi. (unknown) (no (unknown) (unknown) Referrals: (units (unk nown) date) unknown) (unknown) (no (unknown) (unknown) Related Data (units (u nknown) date) unknown) (unknown) (no (unknown) (unknown) Respiratory Rate (units (unknown) date) 20 03/04/22 10:28 unknown) (unknown) (no (unknown) (unknown) Respiratory Rate (units (unknown) date) 20 unknown) (unknown) (no (unknown) (unknown) Review of Systems (units (unknown) date) unknown) (unknown) (no (unknown) (unknown) Rx Instructions: (units (unknown) date) unknown) (unknown) (no (unknown) (unknown) SKIN: Warm, dry, (units (unknown) date) no laceration, no unknown) petechiae, no rashes or lesions. (unknown) (no (unknown) (unknown) Signed By: (units (unk nown) date) unknown) (unknown) (no (unknown) (unknown) Smoking Status: (units (unknown) date) Never smoker unknown) (unknown) (no (unknown) (unknown) Social History (units (unknown) date) (Reviewed 05/17/21 unknown) @ 13:15 by Mckenna Meza DO) (unknown) (no (unknown) (unknown) Source: patient (units (unknown) date) unknown) (unknown) (no (unknown) (unknown) Stated Complaint: (units (unknown) date) [facility] t-8 thinks slipped dis (unknown) (no (unknown) (unknown) Stop: 03/04/22 (units (unknown) date) 11:01 unknown) (unknown) (no (unknown) (unknown) Substance Use (units ( unknown) date) Type: does not use unknown) (unknown) (no (unknown) (unknown) Surgical History (units (unknown) date) (Reviewed 05/28/21 unknown) @ 14:56 by Delbert Rudolph MD) (unknown) (no (unknown) (unknown) Take 2 capsule by (units (unknown) date) oral route 2 times unknown) every day in the morning and evening (unknown) (no (unknown) (unknown) Temperature 97.8 (units (unknown) date) F 03/04/22 10:28 unknown) (unknown) (no (unknown) (unknown) Temperature 97.8 (units (unknown) date) F unknown) (unknown) (no (unknown) (unknown) Time Seen by (units (u nknown) date) Provider: 03/04/22 unknown) 10:48 (unknown) (no (unknown) (unknown) Traumatic (units (unkn own) date) complete tear of unknown) right rotator cuff (unknown) (no (unknown) (unknown) Poncho Anguiano, (units (unknown) date) DO [Primary Care unknown) Provider] (unknown) (no (unknown) (unknown) Vital Signs - 8 (units (unknown) date) hr unknown) (unknown) (no (unknown) (unknown) Vital Signs (units (un known) date) unknown) (unknown) (no (unknown) (unknown) Vital signs: (units (u nknown) date) unknown) (unknown) (no (unknown) (unknown) With Meals (units (unk nown) date) unknown) (unknown) (no (unknown) (unknown) ablation. A month (units (unknown) date) ago he was seen at unknown) [facility] for further neurologic testing he (unknown) (no (unknown) (unknown) alcohol intake (units (unknown) date) frequency: unknown) holidays/special occasions only (unknown) (no (unknown) (unknown) along left leg (units (unknown) date) weakness. he unknown) reports that he had an injury where he slipped and (unknown) (no (unknown) (unknown) any urinary or (units (unknown) date) stool unknown) incontinence. He does have some left leg weakness is at (unknown) (no (unknown) (unknown) atorvastatin 20 (units (unknown) date) mg tablet 20 mg PO unknown) DAILY 04/18/21 05/28/21 (unknown) (no (unknown) (unknown) atorvastatin 20 (units (unknown) date) mg tablet unknown) (unknown) (no (unknown) (unknown) baseline but it (units (unknown) date) seems to be unknown) getting a little bit worse. He is had multiple back (unknown) (no (unknown) (unknown) celecoxib 100 mg (units (unknown) date) capsule 100 mg PO unknown) DAILY 04/18/21 05/28/21 (unknown) (no (unknown) (unknown) celecoxib 100 mg (units (unknown) date) capsule unknown) (unknown) (no (unknown) (unknown) chills. No IVDA. (units (unknown) date) He gets back pain unknown) regularly he has medications that usually (unknown) (no (unknown) (unknown) duloxetine 30 mg (units (unknown) date) capsule,delayed 30 unknown) mg PO DAILY 04/18/21 05/28/21 (unknown) (no (unknown) (unknown) duloxetine 30 mg (units (unknown) date) capsule,delayed unknown) release(DR/EC) (unknown) (no (unknown) (unknown) duloxetine 60 mg (units (unknown) date) capsule,delayed 60 unknown) mg PO DAILY 04/18/21 05/28/21 (unknown) (no (unknown) (unknown) duloxetine 60 mg (units (unknown) date) capsule,delayed unknown) release(DR/EC) (unknown) (no (unknown) (unknown) erections and (units ( unknown) date) feels like he is unknown) not emptying his bladder all the way. He denies (unknown) (no (unknown) (unknown) fell while (units (unk nown) date) golfing on February unknown) . Since then he is had difficult time with (unknown) (no (unknown) (unknown) guarding or (units (un known) date) rebound. unknown) (unknown) (no (unknown) (unknown) had an EEG and (units (unknown) date) other test unknown) specifically for his left leg. He denies any fevers (unknown) (no (unknown) (unknown) household (units (unkn own) date) members: children unknown) (unknown) (no (unknown) (unknown) hydroxyzine (units (un known) date) pamoate 25 mg unknown) Capsule (unknown) (no (unknown) (unknown) hydroxyzine (units (un known) date) pamoate 25 mg unknown) capsule 25 mg PO Q6HR PRN Spasms #30 caps 04/20/21 (unknown) (no (unknown) (unknown) intact (units (unkno wn) date) unknown) (unknown) (no (unknown) (unknown) is quite out of (units (unknown) date) control. Last unknown) night he needed pain medication and alcohol in (unknown) (no (unknown) (unknown) lisinopril 40 mg (units (unknown) date) tablet 40 mg PO unknown) DAILY 04/18/21 05/28/21 (unknown) (no (unknown) (unknown) lisinopril 40 mg (units (unknown) date) tablet unknown) (unknown) (no (unknown) (unknown) membranes (units (unkn own) date) unknown) (unknown) (no (unknown) (unknown) mg-metformin (units (u nknown) date) 1,000 mg tablet unknown) (unknown) (no (unknown) (unknown) off the gurney. (units (unknown) date) Decreased unknown) sensation in the left leg starting just inferior to (unknown) (no (unknown) (unknown) order to go to (units (unknown) date) sleep unknown) (unknown) (no (unknown) (unknown) release (units (unkno wn) date) unknown) (unknown) (no (unknown) (unknown) sitagliptin (units (un known) date) phosphate 50 50 - unknown) 1,000 tab PO BID 04/18/21 05/28/21 (unknown) (no (unknown) (unknown) the knee. (units (unkn own) date) unknown) (unknown) (no (unknown) (unknown) today with (units (unk nown) date) worsening back unknown) pain difficulty urinating difficulty with erections (unknown) (no (unknown) (unknown) topiramate 25 mg (units (unknown) date) tablet 50 mg PO unknown) BID 04/18/21 05/28/21 (unknown) (no (unknown) (unknown) topiramate 25 mg (units (unknown) date) tablet unknown) (unknown) (no (unknown) (unknown) work he has done (units (unknown) date) lidocaine patches unknown) and everything he normally does but his pain Result panel 128 (unknown) (no date) (unknown) (unknown) 0 /ul (unkn own) (unknown) (no date) (unknown) (unknown) 0.4 % (unkn own) (unknown) (no date) (unknown) (unknown) 1.1 % (unkn own) (unknown) (no date) (unknown) (unknown) 100 /ul (unkn own) (unknown) (no date) (unknown) (unknown) 14.8 % (unkn own) (unknown) (no date) (unknown) (unknown) 15.3 g/dl (unkn own) (unknown) (no date) (unknown) (unknown) 1600 /ul (unkn own) (unknown) (no date) (unknown) (unknown) 205 x10 3/ul (unkn own) (unknown) (no date) (unknown) (unknown) 24.0 % (unkn own) (unknown) (no date) (unknown) (unknown) 28.7 pg (unkn own) (unknown) (no date) (unknown) (unknown) 35.4 % (unkn own) (unknown) (no date) (unknown) (unknown) 43.1 % (unkn own) (unknown) (no date) (unknown) (unknown) 4500 /ul (unkn own) (unknown) (no date) (unknown) (unknown) 5.32 x10 6/ul (unkn own) (unknown) (no date) (unknown) (unknown) 500 /ul (unkn own) (unknown) (no date) (unknown) (unknown) 6.7 x10 3/ul (unkn own) (unknown) (no date) (unknown) (unknown) 66.7 % (unkn own) (unknown) (no date) (unknown) (unknown) 7.8 % (unkn own) (unknown) (no date) (unknown) (unknown) 81.0 fl (unkn own) Result panel 129 (unknown) (no date) (unknown) (unknown) > 60 ml/min (unkn own) (unknown) (no date) (unknown) (unknown) > 60 ml/min (unkn own) (unknown) (no date) (unknown) (unknown) 0.8 mg/dl (unkn own) (unknown) (no date) (unknown) (unknown) 0.85 mg/dl (unkn own) (unknown) (no date) (unknown) (unknown) 1.5 (units unknown) (unknown) (unknown) (no date) (unknown) (unknown) 138 mmol/l (unkn own) (unknown) (no date) (unknown) (unknown) 155 mg/dl (unkn own) (unknown) (no date) (unknown) (unknown) 155 mg/dl (unkn own) (unknown) (no date) (unknown) (unknown) 18 mg/dl (unkn own) (unknown) (no date) (unknown) (unknown) 21.2 (units unknown) (unknown) (unknown) (no date) (unknown) (unknown) 28 mmol/l (unkn own) (unknown) (no date) (unknown) (unknown) 3.1 mmol/l (unkn own) (unknown) (no date) (unknown) (unknown) 3.2 g/dl (unkn own) (unknown) (no date) (unknown) (unknown) 39 iu/l (unkn own) (unknown) (no date) (unknown) (unknown) 4.7 g/dl (unkn own) (unknown) (no date) (unknown) (unknown) 58 iu/l (unkn own) (unknown) (no date) (unknown) (unknown) 7.9 g/dl (unkn own) (unknown) (no date) (unknown) (unknown) 88 u/l (unkn own) (unknown) (no date) (unknown) (unknown) 9.1 mg/dl (unkn own) (unknown) (no date) (unknown) (unknown) 99 mmol/l (unkn own) Result panel 130 (unknown) (no (unknown) (unknown) (no value) (units (unk nown) date) unknown) (unknown) (no (unknown) (unknown) (Janumet) (units (unkn own) date) unknown) (unknown) (no (unknown) (unknown) 03/04/22 03/04/22 (units (unknown) date) Range/Units unknown) (unknown) (no (unknown) (unknown) 03/04/22 10:54 (units (unknown) date) unknown) (unknown) (no (unknown) (unknown) 03/04/22 11:16 (units (unknown) date) unknown) (unknown) (no (unknown) (unknown) 03/04/22 (units (unkno wn) date) unknown) (unknown) (no (unknown) (unknown) 100 mg PO DAILY (units (unknown) date) unknown) (unknown) (no (unknown) (unknown) 10:28 03/04/22 (units (unknown) date) unknown) (unknown) (no (unknown) (unknown) 10:40 03/04/22 (units (unknown) date) unknown) (unknown) (no (unknown) (unknown) 10:40 (units (unkno wn) date) unknown) (unknown) (no (unknown) (unknown) 11:00 03/04/22 (units (unknown) date) unknown) (unknown) (no (unknown) (unknown) 11:16 11:16 (units (un known) date) unknown) (unknown) (no (unknown) (unknown) 11:30 03/04/22 (units (unknown) date) unknown) (unknown) (no (unknown) (unknown) 11:30 (units (unkno wn) date) unknown) (unknown) (no (unknown) (unknown) 13:05 03/04/22 (units (unknown) date) unknown) (unknown) (no (unknown) (unknown) 13:06 03/04/22 (units (unknown) date) unknown) (unknown) (no (unknown) (unknown) 13:06 (units (unkno wn) date) unknown) (unknown) (no (unknown) (unknown) 20 mg PO DAILY (units (unknown) date) unknown) (unknown) (no (unknown) (unknown) 25 mg PO Q6HR PRN (units (unknown) date) (Reason: Spasms) unknown) Qty: 30 0RF (unknown) (no (unknown) (unknown) 30 mg PO DAILY (units (unknown) date) unknown) (unknown) (no (unknown) (unknown) 40 mg PO DAILY (units (unknown) date) unknown) (unknown) (no (unknown) (unknown) [id number] (units (unkno wn) date) unknown) (unknown) (no (unknown) (unknown) 50 - 1,000 tab PO (units (unknown) date) BID unknown) (unknown) (no (unknown) (unknown) 50 mg PO BID (units (u nknown) date) unknown) (unknown) (no (unknown) (unknown) 60 mg PO DAILY (units (unknown) date) unknown) (unknown) (no (unknown) (unknown) ABDOMEN: Soft, (units (unknown) date) nontender. unknown) Normoactive bowel sounds all 4 quadrants. No (unknown) (no (unknown) (unknown) ALT 58 H (<50) (units (unknown) date) IU/L unknown) (unknown) (no (unknown) (unknown) AST 39 (17-59) (units (unknown) date) IU/L unknown) (unknown) (no (unknown) (unknown) Age/Sex: 47 / M (units (unknown) date) unknown) (unknown) (no (unknown) (unknown) Albumin 4.7 (units (un known) date) (3.5-5.0) g/dL unknown) (unknown) (no (unknown) (unknown) Albumin/Globulin (units (unknown) date) Ratio 1.5 unknown) (1.0-2.8) (unknown) (no (unknown) (unknown) Alkaline (units (unkno wn) date) Phosphatase 88 unknown) (38-126) U/L (unknown) (no (unknown) (unknown) Allergies (units (unkn own) date) unknown) (unknown) (no (unknown) (unknown) Allergy/AdvReac (units (unknown) date) Type Severity unknown) Reaction Status Date / Time (unknown) (no (unknown) (unknown) Arthritis (units (unkn own) date) unknown) (unknown) (no (unknown) (unknown) BACK: Tender (units (u nknown) date) midline L1-L2 area unknown) no step-off (unknown) (no (unknown) (unknown) BUN 18 (9-20) (units ( unknown) date) mg/dL unknown) (unknown) (no (unknown) (unknown) BUN/Creatinine (units (unknown) date) Ratio 21.2 (6-22) unknown) (unknown) (no (unknown) (unknown) Baso # (Auto) 0 (units (unknown) date) (0-100) /uL unknown) (unknown) (no (unknown) (unknown) Baso % (Auto) 0.4 (units (unknown) date) (0-2) % unknown) (unknown) (no (unknown) (unknown) Blood Pressure (units (unknown) date) 125/70 unknown) (unknown) (no (unknown) (unknown) Blood Pressure (units (unknown) date) 132/86 unknown) (unknown) (no (unknown) (unknown) Blood Pressure (units (unknown) date) 137/89 03/04/22 unknown) 10:28 (unknown) (no (unknown) (unknown) Blood Pressure (units (unknown) date) 137/89 138/86 unknown) (unknown) (no (unknown) (unknown) CARDIOVASCULAR: (units (unknown) date) Regular rate and unknown) rhythm without murmurs, rubs or gallops. (unknown) (no (unknown) (unknown) CBC Auto Diff (units ( unknown) date) [Complete Blood unknown) Count AUTO DIFF] Stat (unknown) (no (unknown) (unknown) CMP (units (unkno wn) date) [Comprehensive unknown) Metabolic Panel] Stat (unknown) (no (unknown) (unknown) COVID (-02/2021) (units (unknown) date) unknown) (unknown) (no (unknown) (unknown) Calcium 9.1 (units (un known) date) (8.4-10.2) mg/dL unknown) (unknown) (no (unknown) (unknown) Carbon Dioxide 28 (units (unknown) date) (22-32) mmol/L unknown) (unknown) (no (unknown) (unknown) Chief Complaint: (units (unknown) date) Neuro unknown) Symptoms/Deficit (unknown) (no (unknown) (unknown) Chloride 99 (units (un known) date) (98-107) mmol/L unknown) (unknown) (no (unknown) (unknown) Course (units (unkno wn) date) unknown) (unknown) (no (unknown) (unknown) Creatinine 0.85 (units (unknown) date) (0.66-1.25) mg/dL unknown) (unknown) (no (unknown) (unknown) : 1975 (units (unknown) date) Acct:[id number] unknown) (unknown) (no (unknown) (unknown) Date of Service: (units (unknown) date) 03/04/22 unknown) (unknown) (no (unknown) (unknown) 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 unknown) (unknown) (no (unknown) (unknown) Departure (units (unkn own) date) unknown) (unknown) (no (unknown) (unknown) Depression (units (unk nown) date) unknown) (unknown) (no (unknown) (unknown) Diabetes (units (unkno wn) date) unknown) (unknown) (no (unknown) (unknown) Discharge Plan (units (unknown) date) unknown) (unknown) (no (unknown) (unknown) Discontinued (units (u nknown) date) Medications unknown) (unknown) (no (unknown) (unknown) Documented By: KB (units (unknown) date) unknown) (unknown) (no (unknown) (unknown) Documented By: KM (units (unknown) date) unknown) (unknown) (no (unknown) (unknown) ED Orders (units (unkn own) date) unknown) (unknown) (no (unknown) (unknown) ER Physician: (units ( unknown) date) Wendy Davis unknown) D.O. (unknown) (no (unknown) (unknown) EXTREMITIES: (units (u nknown) date) Normal range of unknown) motion, no clubbing or edema. Neurovascularly (unknown) (no (unknown) (unknown) Emergency Report (units (unknown) date) unknown) (unknown) (no (unknown) (unknown) Eos # (Auto) 100 (units (unknown) date) (0-450) /uL unknown) (unknown) (no (unknown) (unknown) Eos % (Auto) 1.1 (units (unknown) date) L (2-4) % unknown) (unknown) (no (unknown) (unknown) Estimated GFR > (units (unknown) date) 60 (>60) mL/min unknown) (unknown) (no (unknown) (unknown) Exam (units (unkno wn) date) unknown) (unknown) (no (unknown) (unknown) Fracture (units (unkno wn) date) unknown) (unknown) (no (unknown) (unknown) GENERAL: Alert (units (unknown) date) 47-year-old male unknown) and in no acute distress. (unknown) (no (unknown) (unknown) General (units (unkno wn) date) unknown) (unknown) (no (unknown) (unknown) Globulin 3.2 (units (u nknown) date) (1.7-4.1) g/dL unknown) (unknown) (no (unknown) (unknown) Glucose 155 H (units ( unknown) date) (70-100) mg/dL unknown) (unknown) (no (unknown) (unknown) HEENT: Head (units (un known) date) atraumatic,EOMI, unknown) pupils reactive, face symmetric, moist mucous (unknown) (no (unknown) (unknown) HPI - Neuro (units (un known) date) Symptoms/Deficit unknown) (unknown) (no (unknown) (unknown) HPI Narrative: (units (unknown) date) unknown) (unknown) (no (unknown) (unknown) Hct 43.1 (41-53) (units (unknown) date) % unknown) (unknown) (no (unknown) (unknown) Headache, (units (unkn own) date) migraine unknown) (unknown) (no (unknown) (unknown) Hematologic/Lymph (units (unknown) date) atic unknown) (unknown) (no (unknown) (unknown) Hepatic steatosis (units (unknown) date) unknown) (unknown) (no (unknown) (unknown) Hgb 15.3 (units (unkno wn) date) (13.5-17.5) g/dL unknown) (unknown) (no (unknown) (unknown) History of (units (unk nown) date) Present Illness unknown) (unknown) (no (unknown) (unknown) History of hernia (units (unknown) date) repair unknown) (unknown) (no (unknown) (unknown) History of (units (unk nown) date) vasectomy unknown) (unknown) (no (unknown) (unknown) Home Medications (units (unknown) date) unknown) (unknown) (no (unknown) (unknown) Hydromorphone HCl (units (unknown) date) (Hydromorphone 1 unknown) Mg Inj) 1 mg IV NOW ONE (unknown) (no (unknown) (unknown) Hyperlipidemia (units (unknown) date) unknown) (unknown) (no (unknown) (unknown) Hypertension (units (u nknown) date) unknown) (unknown) (no (unknown) (unknown) Initial Vital (units ( unknown) date) Signs unknown) (unknown) (no (unknown) (unknown) Initial Vital (units ( unknown) date) Signs: unknown) (unknown) (no (unknown) (unknown) [facility] (units (unknown) date) [address] unknown) [place] [address] (unknown) (no (unknown) (unknown) Janumet 50-1,000 (units (unknown) date) mg tablet unknown) (unknown) (no (unknown) (unknown) Lab Data (units (unkno wn) date) unknown) (unknown) (no (unknown) (unknown) Lab Results (units (un known) date) unknown) (unknown) (no (unknown) (unknown) Labs: (units (unkno wn) date) unknown) (unknown) (no (unknown) (unknown) Last Admin: (units (un known) date) 03/04/22 11:08 unknown) Dose: 1 mg (unknown) (no (unknown) (unknown) Last Admin: (units (un known) date) 03/04/22 12:16 unknown) Dose: 1 mg (unknown) (no (unknown) (unknown) Last Admin: (units (un known) date) 03/04/22 13:21 unknown) Dose: 1 mg (unknown) (no (unknown) (unknown) Lorazepam (units (unkn own) date) (Lorazepam 2 Mg/Ml unknown) Inj) 1 mg IV NOW ONE (unknown) (no (unknown) (unknown) Lymph # (Auto) (units (unknown) date) 1600 ([id number]) unknown) /uL (unknown) (no (unknown) (unknown) Lymph % (Auto) (units (unknown) date) 24.0 L (25-40) % unknown) (unknown) (no (unknown) (unknown) MCH 28.7 (26-34) (units (unknown) date) PG unknown) (unknown) (no (unknown) (unknown) MCHC 35.4 (30-36) (units (unknown) date) % unknown) (unknown) (no (unknown) (unknown) MCV 81.0 (80-100) (units (unknown) date) fL unknown) (unknown) (no (unknown) (unknown) MDM - Neuro (units (un known) date) Symptoms/Deficit unknown) (unknown) (no (unknown) (unknown) MR lumbar spine (units (unknown) date) wo con Stat unknown) (unknown) (no (unknown) (unknown) Medical History (units (unknown) date) (Reviewed 05/28/21 unknown) @ 14:56 by Delbert Rudolph MD) (unknown) (no (unknown) (unknown) Medication (units (unk nown) date) Instructions unknown) Recorded Confirmed (unknown) (no (unknown) (unknown) Medication (units (unk nown) date) Instructions unknown) Recorded (unknown) (no (unknown) (unknown) Mode of arrival: (units (unknown) date) Wheelchair unknown) (unknown) (no (unknown) (unknown) [place] # (Auto) 500 (units (unknown) date) (0-900) /uL unknown) (unknown) (no (unknown) (unknown) [place] % (Auto) 7.8 (units (unknown) date) (3-14) % unknown) (unknown) (no (unknown) (unknown) NEUROLOGICAL: (units ( unknown) date) Alert and oriented unknown) x4. Left leg is weak but he is able to lift up (unknown) (no (unknown) (unknown) Neut # (Auto) (units ( unknown) date) 4500 ([id number]) unknown) /uL (unknown) (no (unknown) (unknown) Neut % (Auto) (units ( unknown) date) 66.7 (50-75) % unknown) (unknown) (no (unknown) (unknown) No Action (units (unkn own) date) unknown) (unknown) (no (unknown) (unknown) On (units (unkno wn) date) Anticoagulants: No unknown) (unknown) (no (unknown) (unknown) Ordered: (units (unkno wn) date) unknown) (unknown) (no (unknown) (unknown) Orders (units (unkno wn) date) unknown) (unknown) (no (unknown) (unknown) Oxygen Delivery (units (unknown) date) Method 03/04/22 unknown) 10:28 (unknown) (no (unknown) (unknown) Oxygen Delivery (units (unknown) date) Method Room Air unknown) (unknown) (no (unknown) (unknown) Oxygen Delivery (units (unknown) date) Method unknown) (unknown) (no (unknown) (unknown) Patient History (units (unknown) date) unknown) (unknown) (no (unknown) (unknown) Patient is a (units (u nknown) date) 47-year-old male unknown) history of diabetes chronic back pain presenting (unknown) (no (unknown) (unknown) Patient: (units (unkno wn) date) Mehran Abraham unknown) MR#: [id number] (unknown) (no (unknown) (unknown) Penicillins (units (un known) date) Allergy Mild Rash unknown) Verified 03/04/22 10:33 (unknown) (no (unknown) (unknown) Plt Count 205 (units ( unknown) date) (150-400) X103/uL unknown) (unknown) (no (unknown) (unknown) Potassium 3.1 L (units (unknown) date) (3.4-5.1) mmol/L unknown) (unknown) (no (unknown) (unknown) Prescriptions: (units (unknown) date) unknown) (unknown) (no (unknown) (unknown) Previous Rx's (units ( unknown) date) unknown) (unknown) (no (unknown) (unknown) Pulse Oximetry 94 (units (unknown) date) 93 unknown) (unknown) (no (unknown) (unknown) Pulse Oximetry 94 (units (unknown) date) 94 unknown) (unknown) (no (unknown) (unknown) Pulse Oximetry 97 (units (unknown) date) 03/04/22 10:28 unknown) (unknown) (no (unknown) (unknown) Pulse Oximetry 97 (units (unknown) date) 96 unknown) (unknown) (no (unknown) (unknown) Pulse Rate 70 73 (units (unknown) date) unknown) (unknown) (no (unknown) (unknown) Pulse Rate 76 73 (units (unknown) date) unknown) (unknown) (no (unknown) (unknown) Pulse Rate 87 (units ( unknown) date) 03/04/22 10:28 unknown) (unknown) (no (unknown) (unknown) Pulse Rate 87 80 (units (unknown) date) unknown) (unknown) (no (unknown) (unknown) RBC 5.32 (units (unkno wn) date) (4.5-5.9) X106/uL unknown) (unknown) (no (unknown) (unknown) RDW 14.8 (units (unkno wn) date) (11.6-14.8) % unknown) (unknown) (no (unknown) (unknown) RESPIRATORY: (units (u nknown) date) Breath sounds unknown) equal bilaterally, no wheezes rales or rhonchi. (unknown) (no (unknown) (unknown) Referrals: (units (unk nown) date) unknown) (unknown) (no (unknown) (unknown) Related Data (units (u nknown) date) unknown) (unknown) (no (unknown) (unknown) Respiratory Rate (units (unknown) date) 20 03/04/22 10:28 unknown) (unknown) (no (unknown) (unknown) Respiratory Rate (units (unknown) date) 20 unknown) (unknown) (no (unknown) (unknown) Respiratory Rate (units (unknown) date) unknown) (unknown) (no (unknown) (unknown) Result diagrams: (units (unknown) date) unknown) (unknown) (no (unknown) (unknown) Review of Systems (units (unknown) date) unknown) (unknown) (no (unknown) (unknown) Rx Instructions: (units (unknown) date) unknown) (unknown) (no (unknown) (unknown) SKIN: Warm, dry, (units (unknown) date) no laceration, no unknown) petechiae, no rashes or lesions. (unknown) (no (unknown) (unknown) Signed By: (units (unk nown) date) unknown) (unknown) (no (unknown) (unknown) Smoking Status: (units (unknown) date) Never smoker unknown) (unknown) (no (unknown) (unknown) Social History (units (unknown) date) (Reviewed 05/17/21 unknown) @ 13:15 by Mckenna Meza DO) (unknown) (no (unknown) (unknown) Sodium 138 (units (unk nown) date) (137-145) mmol/L unknown) (unknown) (no (unknown) (unknown) Source: patient (units (unknown) date) unknown) (unknown) (no (unknown) (unknown) Stated Complaint: (units (unknown) date) [facility] by [facility]) Hosp. slipped t-8 thinks slipped dis (unknown) (no (unknown) (unknown) Stop: 03/04/22 (units (unknown) date) 11:01 unknown) (unknown) (no (unknown) (unknown) Stop: 03/04/22 (units (unknown) date) 12:13 unknown) (unknown) (no (unknown) (unknown) Stop: 03/04/22 (units (unknown) date) 13:19 unknown) (unknown) (no (unknown) (unknown) Substance Use (units ( unknown) date) Type: does not use unknown) (unknown) (no (unknown) (unknown) Surgical History (units (unknown) date) (Reviewed 05/28/21 unknown) @ 14:56 by Delbert Rudolph MD) (unknown) (no (unknown) (unknown) Take 2 capsule by (units (unknown) date) oral route 2 times unknown) every day in the morning and evening (unknown) (no (unknown) (unknown) Temperature 97.8 (units (unknown) date) F 03/04/22 10:28 unknown) (unknown) (no (unknown) (unknown) Temperature 97.8 (units (unknown) date) F unknown) (unknown) (no (unknown) (unknown) Temperature (units (un known) date) unknown) (unknown) (no (unknown) (unknown) Time Seen by (units (u nknown) date) Provider: 03/04/22 unknown) 10:48 (unknown) (no (unknown) (unknown) Total Bilirubin (units (unknown) date) 0.8 (0.2-1.3) unknown) mg/dL (unknown) (no (unknown) (unknown) Total Protein 7.9 (units (unknown) date) (6.3-8.2) g/dL unknown) (unknown) (no (unknown) (unknown) Traumatic (units (unkn own) date) complete tear of unknown) right rotator cuff (unknown) (no (unknown) (unknown) Poncho Anguiano, (units (unknown) date) DO [Primary Care unknown) Provider] (unknown) (no (unknown) (unknown) Vital Signs - 8 (units (unknown) date) hr unknown) (unknown) (no (unknown) (unknown) Vital Signs (units (un known) date) unknown) (unknown) (no (unknown) (unknown) Vital signs: (units (u nknown) date) unknown) (unknown) (no (unknown) (unknown) WBC 6.7 (units (unkno wn) date) (4.5-11.0) X103/uL unknown) (unknown) (no (unknown) (unknown) With Meals (units (unk nown) date) unknown) (unknown) (no (unknown) (unknown) [Embedded Image (units (unknown) date) Not Available] unknown) (unknown) (no (unknown) (unknown) ablation. A month (units (unknown) date) ago he was seen at unknown) [facility] for further neurologic testing he (unknown) (no (unknown) (unknown) alcohol intake (units (unknown) date) frequency: unknown) holidays/special occasions only (unknown) (no (unknown) (unknown) along left leg (units (unknown) date) weakness. he unknown) reports that he had an injury where he slipped and (unknown) (no (unknown) (unknown) any urinary or (units (unknown) date) stool unknown) incontinence. He does have some left leg weakness is at (unknown) (no (unknown) (unknown) atorvastatin 20 (units (unknown) date) mg tablet 20 mg PO unknown) DAILY 04/18/21 05/28/21 (unknown) (no (unknown) (unknown) atorvastatin 20 (units (unknown) date) mg tablet unknown) (unknown) (no (unknown) (unknown) baseline but it (units (unknown) date) seems to be unknown) getting a little bit worse. He is had multiple back (unknown) (no (unknown) (unknown) celecoxib 100 mg (units (unknown) date) capsule 100 mg PO unknown) DAILY 04/18/21 05/28/21 (unknown) (no (unknown) (unknown) celecoxib 100 mg (units (unknown) date) capsule unknown) (unknown) (no (unknown) (unknown) chills. No IVDA. (units (unknown) date) He gets back pain unknown) regularly he has medications that usually (unknown) (no (unknown) (unknown) duloxetine 30 mg (units (unknown) date) capsule,delayed 30 unknown) mg PO DAILY 04/18/21 05/28/21 (unknown) (no (unknown) (unknown) duloxetine 30 mg (units (unknown) date) capsule,delayed unknown) release(DR/EC) (unknown) (no (unknown) (unknown) duloxetine 60 mg (units (unknown) date) capsule,delayed 60 unknown) mg PO DAILY 04/18/21 05/28/21 (unknown) (no (unknown) (unknown) duloxetine 60 mg (units (unknown) date) capsule,delayed unknown) release(DR/EC) (unknown) (no (unknown) (unknown) erections and (units ( unknown) date) feels like he is unknown) not emptying his bladder all the way. He denies (unknown) (no (unknown) (unknown) fell while (units (unk nown) date) golfing on February unknown) . Since then he is had difficult time with (unknown) (no (unknown) (unknown) guarding or (units (un known) date) rebound. unknown) (unknown) (no (unknown) (unknown) had an EEG and (units (unknown) date) other test unknown) specifically for his left leg. He denies any fevers (unknown) (no (unknown) (unknown) household (units (unkn own) date) members: children unknown) (unknown) (no (unknown) (unknown) hydroxyzine (units (un known) date) pamoate 25 mg unknown) Capsule (unknown) (no (unknown) (unknown) hydroxyzine (units (un known) date) pamoate 25 mg unknown) capsule 25 mg PO Q6HR PRN Spasms #30 caps 04/20/21 (unknown) (no (unknown) (unknown) intact (units (unkno wn) date) unknown) (unknown) (no (unknown) (unknown) is quite out of (units (unknown) date) control. Last unknown) night he needed pain medication and alcohol in (unknown) (no (unknown) (unknown) lisinopril 40 mg (units (unknown) date) tablet 40 mg PO unknown) DAILY 04/18/21 05/28/21 (unknown) (no (unknown) (unknown) lisinopril 40 mg (units (unknown) date) tablet unknown) (unknown) (no (unknown) (unknown) membranes (units (unkn own) date) unknown) (unknown) (no (unknown) (unknown) mg-metformin (units (u nknown) date) 1,000 mg tablet unknown) (unknown) (no (unknown) (unknown) off the gurney. (units (unknown) date) Decreased unknown) sensation in the left leg starting just inferior to (unknown) (no (unknown) (unknown) order to go to (units (unknown) date) sleep unknown) (unknown) (no (unknown) (unknown) release (units (unkno wn) date) unknown) (unknown) (no (unknown) (unknown) sitagliptin (units (un known) date) phosphate 50 50 - unknown) 1,000 tab PO BID 04/18/21 05/28/21 (unknown) (no (unknown) (unknown) the knee. (units (unkn own) date) unknown) (unknown) (no (unknown) (unknown) today with (units (unk nown) date) worsening back unknown) pain difficulty urinating difficulty with erections (unknown) (no (unknown) (unknown) topiramate 25 mg (units (unknown) date) tablet 50 mg PO unknown) BID 04/18/21 05/28/21 (unknown) (no (unknown) (unknown) topiramate 25 mg (units (unknown) date) tablet unknown) (unknown) (no (unknown) (unknown) work he has done (units (unknown) date) lidocaine patches unknown) and everything he normally does but his pain Result panel 131 (unknown) (no (unknown) (unknown) (no value) (units (unk nown) date) unknown) (unknown) (no (unknown) (unknown) (Janumet) (units (unkn own) date) unknown) (unknown) (no (unknown) (unknown) 03/04/22 03/04/22 (units (unknown) date) Range/Units unknown) (unknown) (no (unknown) (unknown) 03/04/22 10:54 (units (unknown) date) unknown) (unknown) (no (unknown) (unknown) 03/04/22 11:16 (units (unknown) date) unknown) (unknown) (no (unknown) (unknown) 03/04/22 (units (unkno wn) date) unknown) (unknown) (no (unknown) (unknown) 100 mg PO DAILY (units (unknown) date) unknown) (unknown) (no (unknown) (unknown) 10:28 03/04/22 (units (unknown) date) unknown) (unknown) (no (unknown) (unknown) 10:40 03/04/22 (units (unknown) date) unknown) (unknown) (no (unknown) (unknown) 10:40 (units (unkno wn) date) unknown) (unknown) (no (unknown) (unknown) 11:00 03/04/22 (units (unknown) date) unknown) (unknown) (no (unknown) (unknown) 11:16 11:16 (units (un known) date) unknown) (unknown) (no (unknown) (unknown) 11:30 03/04/22 (units (unknown) date) unknown) (unknown) (no (unknown) (unknown) 11:30 (units (unkno wn) date) unknown) (unknown) (no (unknown) (unknown) 13:05 03/04/22 (units (unknown) date) unknown) (unknown) (no (unknown) (unknown) 13:06 03/04/22 (units (unknown) date) unknown) (unknown) (no (unknown) (unknown) 13:06 (units (unkno wn) date) unknown) (unknown) (no (unknown) (unknown) 1414 Dr. Parsons, (units (unknown) date) [facility] [place] unknown) patient's symptoms test results has (unknown) (no (unknown) (unknown) 20 mg PO DAILY (units (unknown) date) unknown) (unknown) (no (unknown) (unknown) 25 mg PO Q6HR PRN (units (unknown) date) (Reason: Spasms) unknown) Qty: 30 0RF (unknown) (no (unknown) (unknown) 30 mg PO DAILY (units (unknown) date) unknown) (unknown) (no (unknown) (unknown) 40 mg PO DAILY (units (unknown) date) unknown) (unknown) (no (unknown) (unknown) [id number] (units (unkno wn) date) unknown) (unknown) (no (unknown) (unknown) 50 - 1,000 tab PO (units (unknown) date) BID unknown) (unknown) (no (unknown) (unknown) 50 mg PO BID (units (u nknown) date) unknown) (unknown) (no (unknown) (unknown) 60 mg PO DAILY (units (unknown) date) unknown) (unknown) (no (unknown) (unknown) ABDOMEN: Soft, (units (unknown) date) nontender. unknown) Normoactive bowel sounds all 4 quadrants. No (unknown) (no (unknown) (unknown) ALT 58 H (<50) (units (unknown) date) IU/L unknown) (unknown) (no (unknown) (unknown) AST 39 (17-59) (units (unknown) date) IU/L unknown) (unknown) (no (unknown) (unknown) Age/Sex: 47 / M (units (unknown) date) unknown) (unknown) (no (unknown) (unknown) Albumin 4.7 (units (un known) date) (3.5-5.0) g/dL unknown) (unknown) (no (unknown) (unknown) Albumin/Globulin (units (unknown) date) Ratio 1.5 unknown) (1.0-2.8) (unknown) (no (unknown) (unknown) Alkaline (units (unkno wn) date) Phosphatase 88 unknown) (38-126) U/L (unknown) (no (unknown) (unknown) Allergies (units (unkn own) date) unknown) (unknown) (no (unknown) (unknown) Allergy/AdvReac (units (unknown) date) Type Severity unknown) Reaction Status Date / Time (unknown) (no (unknown) (unknown) Arthritis (units (unkn own) date) unknown) (unknown) (no (unknown) (unknown) BACK: Tender (units (u nknown) date) midline L1-L2 area unknown) no step-off (unknown) (no (unknown) (unknown) BUN 18 (9-20) (units ( unknown) date) mg/dL unknown) (unknown) (no (unknown) (unknown) BUN/Creatinine (units (unknown) date) Ratio 21.2 (6-22) unknown) (unknown) (no (unknown) (unknown) Baso # (Auto) 0 (units (unknown) date) (0-100) /uL unknown) (unknown) (no (unknown) (unknown) Baso % (Auto) 0.4 (units (unknown) date) (0-2) % unknown) (unknown) (no (unknown) (unknown) Blood Pressure (units (unknown) date) 125/70 unknown) (unknown) (no (unknown) (unknown) Blood Pressure (units (unknown) date) 132/86 unknown) (unknown) (no (unknown) (unknown) Blood Pressure (units (unknown) date) 137/89 03/04/22 unknown) 10:28 (unknown) (no (unknown) (unknown) Blood Pressure (units (unknown) date) 137/89 138/86 unknown) (unknown) (no (unknown) (unknown) CARDIOVASCULAR: (units (unknown) date) Regular rate and unknown) rhythm without murmurs, rubs or gallops. (unknown) (no (unknown) (unknown) CBC Auto Diff (units ( unknown) date) [Complete Blood unknown) Count AUTO DIFF] Stat (unknown) (no (unknown) (unknown) CMP (units (unkno wn) date) [Comprehensive unknown) Metabolic Panel] Stat (unknown) (no (unknown) (unknown) COVID () (units (unknown) date) unknown) (unknown) (no (unknown) (unknown) Calcium 9.1 (units (un known) date) (8.4-10.2) mg/dL unknown) (unknown) (no (unknown) (unknown) Carbon Dioxide 28 (units (unknown) date) (22-32) mmol/L unknown) (unknown) (no (unknown) (unknown) Chief Complaint: (units (unknown) date) Neuro unknown) Symptoms/Deficit (unknown) (no (unknown) (unknown) Chloride 99 (units (un known) date) (98-107) mmol/L unknown) (unknown) (no (unknown) (unknown) Course (units (unkno wn) date) unknown) (unknown) (no (unknown) (unknown) Creatinine 0.85 (units (unknown) date) (0.66-1.25) mg/dL unknown) (unknown) (no (unknown) (unknown) : 1975 (units (unknown) date) Acct:[id number] unknown) (unknown) (no (unknown) (unknown) Date of Service: (units (unknown) date) 03/04/22 unknown) (unknown) (no (unknown) (unknown) 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 unknown) (unknown) (no (unknown) (unknown) Departure (units (unkn own) date) unknown) (unknown) (no (unknown) (unknown) Depression (units (unk nown) date) unknown) (unknown) (no (unknown) (unknown) Diabetes (units (unkno wn) date) unknown) (unknown) (no (unknown) (unknown) Discharge Plan (units (unknown) date) unknown) (unknown) (no (unknown) (unknown) Discontinued (units (u nknown) date) Medications unknown) (unknown) (no (unknown) (unknown) Documented By: KB (units (unknown) date) unknown) (unknown) (no (unknown) (unknown) Documented By: KM (units (unknown) date) unknown) (unknown) (no (unknown) (unknown) ED Orders (units (unkn own) date) unknown) (unknown) (no (unknown) (unknown) ER Physician: (units ( unknown) date) Wendy Davis unknown) D.O. (unknown) (no (unknown) (unknown) EXTREMITIES: (units (u nknown) date) Normal range of unknown) motion, no clubbing or edema. Neurovascularly (unknown) (no (unknown) (unknown) Emergency Report (units (unknown) date) unknown) (unknown) (no (unknown) (unknown) Eos # (Auto) 100 (units (unknown) date) (0-450) /uL unknown) (unknown) (no (unknown) (unknown) Eos % (Auto) 1.1 (units (unknown) date) L (2-4) % unknown) (unknown) (no (unknown) (unknown) Estimated GFR > (units (unknown) date) 60 (>60) mL/min unknown) (unknown) (no (unknown) (unknown) Exam (units (unkno wn) date) unknown) (unknown) (no (unknown) (unknown) Fracture (units (unkno wn) date) unknown) (unknown) (no (unknown) (unknown) GENERAL: Alert (units (unknown) date) 47-year-old male unknown) and in no acute distress. (unknown) (no (unknown) (unknown) General (units (unkno wn) date) unknown) (unknown) (no (unknown) (unknown) Globulin 3.2 (units (u nknown) date) (1.7-4.1) g/dL unknown) (unknown) (no (unknown) (unknown) Glucose 155 H (units ( unknown) date) (70-100) mg/dL unknown) (unknown) (no (unknown) (unknown) HEENT: Head (units (un known) date) atraumatic,EOMI, unknown) pupils reactive, face symmetric, moist mucous (unknown) (no (unknown) (unknown) HPI - Neuro (units (un known) date) Symptoms/Deficit unknown) (unknown) (no (unknown) (unknown) HPI Narrative: (units (unknown) date) unknown) (unknown) (no (unknown) (unknown) Hct 43.1 (41-53) (units (unknown) date) % unknown) (unknown) (no (unknown) (unknown) Headache, (units (unkn own) date) migraine unknown) (unknown) (no (unknown) (unknown) Hematologic/Lymph (units (unknown) date) atic unknown) (unknown) (no (unknown) (unknown) Hepatic steatosis (units (unknown) date) unknown) (unknown) (no (unknown) (unknown) Hgb 15.3 (units (unkno wn) date) (13.5-17.5) g/dL unknown) (unknown) (no (unknown) (unknown) History of (units (unk nown) date) Present Illness unknown) (unknown) (no (unknown) (unknown) History of hernia (units (unknown) date) repair unknown) (unknown) (no (unknown) (unknown) History of (units (unk nown) date) vasectomy unknown) (unknown) (no (unknown) (unknown) Home Medications (units (unknown) date) unknown) (unknown) (no (unknown) (unknown) Hydromorphone HCl (units (unknown) date) (Hydromorphone 1 unknown) Mg Inj) 1 mg IV NOW ONE (unknown) (no (unknown) (unknown) Hyperlipidemia (units (unknown) date) unknown) (unknown) (no (unknown) (unknown) Hypertension (units (u nknown) date) unknown) (unknown) (no (unknown) (unknown) Initial Vital (units ( unknown) date) Signs unknown) (unknown) (no (unknown) (unknown) Initial Vital (units ( unknown) date) Signs: unknown) (unknown) (no (unknown) (unknown) [facility] (units (unknown) date) [address] unknown) [place] [address] (unknown) (no (unknown) (unknown) Janumet 50-1,000 (units (unknown) date) mg tablet unknown) (unknown) (no (unknown) (unknown) Lab Data (units (unkno wn) date) unknown) (unknown) (no (unknown) (unknown) Lab Results (units (un known) date) unknown) (unknown) (no (unknown) (unknown) Labs: (units (unkno wn) date) unknown) (unknown) (no (unknown) (unknown) Last Admin: (units (un known) date) 03/04/22 11:08 unknown) Dose: 1 mg (unknown) (no (unknown) (unknown) Last Admin: (units (un known) date) 03/04/22 12:16 unknown) Dose: 1 mg (unknown) (no (unknown) (unknown) Last Admin: (units (un known) date) 03/04/22 13:21 unknown) Dose: 1 mg (unknown) (no (unknown) (unknown) Lorazepam (units (unkn own) date) (Lorazepam 2 Mg/Ml unknown) Inj) 1 mg IV NOW ONE (unknown) (no (unknown) (unknown) Lymph # (Auto) (units (unknown) date) 1600 (1027-8973) unknown) /uL (unknown) (no (unknown) (unknown) Lymph % (Auto) (units (unknown) date) 24.0 L (25-40) % unknown) (unknown) (no (unknown) (unknown) MCH 28.7 (26-34) (units (unknown) date) PG unknown) (unknown) (no (unknown) (unknown) MCHC 35.4 (30-36) (units (unknown) date) % unknown) (unknown) (no (unknown) (unknown) MCV 81.0 (80-100) (units (unknown) date) fL unknown) (unknown) (no (unknown) (unknown) MDM - Neuro (units (un known) date) Symptoms/Deficit unknown) (unknown) (no (unknown) (unknown) MDM Narrative (units ( unknown) date) unknown) (unknown) (no (unknown) (unknown) MR lumbar spine (units (unknown) date) wo con Stat unknown) (unknown) (no (unknown) (unknown) Medical History (units (unknown) date) (Reviewed 05/28/21 unknown) @ 14:56 by Delbert Rudolph MD) (unknown) (no (unknown) (unknown) Medical decision (units (unknown) date) making narrative: unknown) (unknown) (no (unknown) (unknown) Medication (units (unk nown) date) Instructions unknown) Recorded Confirmed (unknown) (no (unknown) (unknown) Medication (units (unk nown) date) Instructions unknown) Recorded (unknown) (no (unknown) (unknown) Mode of arrival: (units (unknown) date) Wheelchair unknown) (unknown) (no (unknown) (unknown) [place] # (Auto) 500 (units (unknown) date) (0-900) /uL unknown) (unknown) (no (unknown) (unknown) [place] % (Auto) 7.8 (units (unknown) date) (3-14) % unknown) (unknown) (no (unknown) (unknown) NEUROLOGICAL: (units ( unknown) date) Alert and oriented unknown) x4. Left leg is weak but he is able to lift up (unknown) (no (unknown) (unknown) Neut # (Auto) (units ( unknown) date) 4500 (8227-5454) unknown) /uL (unknown) (no (unknown) (unknown) Neut % (Auto) (units ( unknown) date) 66.7 (50-75) % unknown) (unknown) (no (unknown) (unknown) No Action (units (unkn own) date) unknown) (unknown) (no (unknown) (unknown) On (units (unkno wn) date) Anticoagulants: No unknown) (unknown) (no (unknown) (unknown) Ordered: (units (unkno wn) date) unknown) (unknown) (no (unknown) (unknown) Orders (units (unkno wn) date) unknown) (unknown) (no (unknown) (unknown) Oxygen Delivery (units (unknown) date) Method 03/04/22 unknown) 10:28 (unknown) (no (unknown) (unknown) Oxygen Delivery (units (unknown) date) Method Room Air unknown) (unknown) (no (unknown) (unknown) Oxygen Delivery (units (unknown) date) Method unknown) (unknown) (no (unknown) (unknown) Patient History (units (unknown) date) unknown) (unknown) (no (unknown) (unknown) Patient is a (units (u nknown) date) 47-year-old male unknown) history of diabetes chronic back pain presenting (unknown) (no (unknown) (unknown) Patient is a (units (un known) date) 47-year-old male unknown) with chronic back problems and diabetes presenting (unknown) (no (unknown) (unknown) Patient is still (units (unknown) date) having difficulty unknown) emptying his bladder. (unknown) (no (unknown) (unknown) Patient reports (units (unknown) date) that he actually unknown) does take Flomax but that his prostate has not (unknown) (no (unknown) (unknown) Patient: (units (unkno wn) date) Mehran Abraham unknown) MR#: [id number] (unknown) (no (unknown) (unknown) Penicillins (units (un known) date) Allergy Mild Rash unknown) Verified 03/04/22 10:33 (unknown) (no (unknown) (unknown) Plt Count 205 (units ( unknown) date) (150-400) X103/uL unknown) (unknown) (no (unknown) (unknown) Potassium 3.1 L (units (unknown) date) (3.4-5.1) mmol/L unknown) (unknown) (no (unknown) (unknown) Prescriptions: (units (unknown) date) unknown) (unknown) (no (unknown) (unknown) Previous Rx's (units ( unknown) date) unknown) (unknown) (no (unknown) (unknown) Pulse Oximetry 94 (units (unknown) date) 93 unknown) (unknown) (no (unknown) (unknown) Pulse Oximetry 94 (units (unknown) date) 94 unknown) (unknown) (no (unknown) (unknown) Pulse Oximetry 97 (units (unknown) date) 03/04/22 10:28 unknown) (unknown) (no (unknown) (unknown) Pulse Oximetry 97 (units (unknown) date) 96 unknown) (unknown) (no (unknown) (unknown) Pulse Rate 70 73 (units (unknown) date) unknown) (unknown) (no (unknown) (unknown) Pulse Rate 76 73 (units (unknown) date) unknown) (unknown) (no (unknown) (unknown) Pulse Rate 87 (units ( unknown) date) 03/04/22 10:28 unknown) (unknown) (no (unknown) (unknown) Pulse Rate 87 80 (units (unknown) date) unknown) (unknown) (no (unknown) (unknown) RBC 5.32 (units (unkno wn) date) (4.5-5.9) X106/uL unknown) (unknown) (no (unknown) (unknown) RDW 14.8 (units (unkno wn) date) (11.6-14.8) % unknown) (unknown) (no (unknown) (unknown) RESPIRATORY: (units (u nknown) date) Breath sounds unknown) equal bilaterally, no wheezes rales or rhonchi. (unknown) (no (unknown) (unknown) Referrals: (units (unk nown) date) unknown) (unknown) (no (unknown) (unknown) Related Data (units (u nknown) date) unknown) (unknown) (no (unknown) (unknown) Respiratory Rate (units (unknown) date) 20 03/04/22 10:28 unknown) (unknown) (no (unknown) (unknown) Respiratory Rate (units (unknown) date) 20 unknown) (unknown) (no (unknown) (unknown) Respiratory Rate (units (unknown) date) unknown) (unknown) (no (unknown) (unknown) Result diagrams: (units (unknown) date) unknown) (unknown) (no (unknown) (unknown) Review of Systems (units (unknown) date) unknown) (unknown) (no (unknown) (unknown) Rx Instructions: (units (unknown) date) unknown) (unknown) (no (unknown) (unknown) SKIN: Warm, dry, (units (unknown) date) no laceration, no unknown) petechiae, no rashes or lesions. (unknown) (no (unknown) (unknown) Signed By: (units (unk nown) date) unknown) (unknown) (no (unknown) (unknown) Smoking Status: (units (unknown) date) Never smoker unknown) (unknown) (no (unknown) (unknown) Social History (units (unknown) date) (Reviewed 05/17/21 unknown) @ 13:15 by Mckenna Meza DO) (unknown) (no (unknown) (unknown) Sodium 138 (units (unk nown) date) (137-145) mmol/L unknown) (unknown) (no (unknown) (unknown) Source: patient (units (unknown) date) unknown) (unknown) (no (unknown) (unknown) Stated Complaint: (units (unknown) date) [facility] by [facility]) Hosp. slipped t-8 thinks slipped dis (unknown) (no (unknown) (unknown) Stop: 03/04/22 (units (unknown) date) 11:01 unknown) (unknown) (no (unknown) (unknown) Stop: 03/04/22 (units (unknown) date) 12:13 unknown) (unknown) (no (unknown) (unknown) Stop: 03/04/22 (units (unknown) date) 13:19 unknown) (unknown) (no (unknown) (unknown) Substance Use (units ( unknown) date) Type: does not use unknown) (unknown) (no (unknown) (unknown) Surgical History (units (unknown) date) (Reviewed 05/28/21 unknown) @ 14:56 by Delbert Rudolph MD) (unknown) (no (unknown) (unknown) Take 2 capsule by (units (unknown) date) oral route 2 times unknown) every day in the morning and evening (unknown) (no (unknown) (unknown) Temperature 97.8 (units (unknown) date) F 03/04/22 10:28 unknown) (unknown) (no (unknown) (unknown) Temperature 97.8 (units (unknown) date) F unknown) (unknown) (no (unknown) (unknown) Temperature (units (un known) date) unknown) (unknown) (no (unknown) (unknown) Time Seen by (units (u nknown) date) Provider: 03/04/22 unknown) 10:48 (unknown) (no (unknown) (unknown) Total Bilirubin (units (unknown) date) 0.8 (0.2-1.3) unknown) mg/dL (unknown) (no (unknown) (unknown) Total Protein 7.9 (units (unknown) date) (6.3-8.2) g/dL unknown) (unknown) (no (unknown) (unknown) Traumatic (units (unkn own) date) complete tear of unknown) right rotator cuff (unknown) (no (unknown) (unknown) Poncho Anguiano, (units (unknown) date) DO [Primary Care unknown) Provider] (unknown) (no (unknown) (unknown) Vital Signs - 8 (units (unknown) date) hr unknown) (unknown) (no (unknown) (unknown) Vital Signs (units (un known) date) unknown) (unknown) (no (unknown) (unknown) Vital signs: (units (u nknown) date) unknown) (unknown) (no (unknown) (unknown) WBC 6.7 (units (unkno wn) date) (4.5-11.0) X103/uL unknown) (unknown) (no (unknown) (unknown) With Meals (units (unk nown) date) unknown) (unknown) (no (unknown) (unknown) [Embedded Image (units (unknown) date) Not Available] unknown) (unknown) (no (unknown) (unknown) ablation. A month (units (unknown) date) ago he was seen at unknown) [facility] for further neurologic testing he (unknown) (no (unknown) (unknown) acute finding. So (units (unknown) date) disc L4-L5 is new unknown) probably from injury on the 1st but (unknown) (no (unknown) (unknown) alcohol intake (units (unknown) date) frequency: unknown) holidays/special occasions only (unknown) (no (unknown) (unknown) along left leg (units (unknown) date) weakness. he unknown) reports that he had an injury where he slipped and (unknown) (no (unknown) (unknown) any urinary or (units (unknown) date) stool unknown) incontinence. He does have some left leg weakness is at (unknown) (no (unknown) (unknown) atorvastatin 20 (units (unknown) date) mg tablet 20 mg PO unknown) DAILY 04/18/21 05/28/21 (unknown) (no (unknown) (unknown) atorvastatin 20 (units (unknown) date) mg tablet unknown) (unknown) (no (unknown) (unknown) baseline but it (units (unknown) date) seems to be unknown) getting a little bit worse. He is had multiple back (unknown) (no (unknown) (unknown) been checked in a (units (unknown) date) while. Possible unknown) BPH problem although patient is relatively (unknown) (no (unknown) (unknown) bilateral neural (units (unknown) date) foraminal unknown) narrowing. Previous MRI from 11/23/2021, shows no (unknown) (no (unknown) (unknown) celecoxib 100 mg (units (unknown) date) capsule 100 mg PO unknown) DAILY 04/18/21 05/28/21 (unknown) (no (unknown) (unknown) celecoxib 100 mg (units (unknown) date) capsule unknown) (unknown) (no (unknown) (unknown) chills. No IVDA. (units (unknown) date) He gets back pain unknown) regularly he has medications that usually (unknown) (no (unknown) (unknown) concern for an (units (unknown) date) infection. Blood unknown) work is overall reassuring without (unknown) (no (unknown) (unknown) difficult to say. (units (unknown) date) unknown) (unknown) (no (unknown) (unknown) duloxetine 30 mg (units (unknown) date) capsule,delayed 30 unknown) mg PO DAILY 04/18/21 05/28/21 (unknown) (no (unknown) (unknown) duloxetine 30 mg (units (unknown) date) capsule,delayed unknown) release(DR/EC) (unknown) (no (unknown) (unknown) duloxetine 60 mg (units (unknown) date) capsule,delayed 60 unknown) mg PO DAILY 04/18/21 05/28/21 (unknown) (no (unknown) (unknown) duloxetine 60 mg (units (unknown) date) capsule,delayed unknown) release(DR/EC) (unknown) (no (unknown) (unknown) equina or (units (unkn own) date) epidural abscess. unknown) Patient is requiring Dilaudid for pain medication (unknown) (no (unknown) (unknown) equina or spinal (units (unknown) date) cord edema. There unknown) is a mild central canal stenosis and mild (unknown) (no (unknown) (unknown) erections and (units ( unknown) date) feels like he is unknown) not emptying his bladder all the way. He denies (unknown) (no (unknown) (unknown) fell while (units (unk nown) date) golfing on February unknown) . Since then he is had difficult time with (unknown) (no (unknown) (unknown) guarding or (units (un known) date) rebound. unknown) (unknown) (no (unknown) (unknown) had an EEG and (units (unknown) date) other test unknown) specifically for his left leg. He denies any fevers (unknown) (no (unknown) (unknown) household (units (unkn own) date) members: children unknown) (unknown) (no (unknown) (unknown) hydroxyzine (units (un known) date) pamoate 25 mg unknown) Capsule (unknown) (no (unknown) (unknown) hydroxyzine (units (un known) date) pamoate 25 mg unknown) capsule 25 mg PO Q6HR PRN Spasms #30 caps 04/20/21 (unknown) (no (unknown) (unknown) in the emergency (units (unknown) date) department. He is unknown) afebrile and not complaining of fever no (unknown) (no (unknown) (unknown) intact (units (unkno wn) date) unknown) (unknown) (no (unknown) (unknown) is 155. MRI does (units (unknown) date) show disc bulge at unknown) L4-L5 region but no evidence of cauda (unknown) (no (unknown) (unknown) is quite out of (units (unknown) date) control. Last unknown) night he needed pain medication and alcohol in (unknown) (no (unknown) (unknown) leukocytosis. (units ( unknown) date) There is no unknown) evidence of electrolyte abnormality or DKA. Glucose (unknown) (no (unknown) (unknown) lisinopril 40 mg (units (unknown) date) tablet 40 mg PO unknown) DAILY 04/18/21 05/28/21 (unknown) (no (unknown) (unknown) lisinopril 40 mg (units (unknown) date) tablet unknown) (unknown) (no (unknown) (unknown) membranes (units (unkn own) date) unknown) (unknown) (no (unknown) (unknown) mg-metformin (units (u nknown) date) 1,000 mg tablet unknown) (unknown) (no (unknown) (unknown) off the gurney. (units (unknown) date) Decreased unknown) sensation in the left leg starting just inferior to (unknown) (no (unknown) (unknown) order to go to (units (unknown) date) sleep unknown) (unknown) (no (unknown) (unknown) perspective. (units (u nknown) date) unknown) (unknown) (no (unknown) (unknown) release (units (unkno wn) date) unknown) (unknown) (no (unknown) (unknown) reviewed MRI (units (un known) date) himself reports unknown) that there is a disc but it is unlikely causing his (unknown) (no (unknown) (unknown) sitagliptin (units (un known) date) phosphate 50 50 - unknown) 1,000 tab PO BID 04/18/21 05/28/21 (unknown) (no (unknown) (unknown) the knee. (units (unkn own) date) unknown) (unknown) (no (unknown) (unknown) today with (units (unk nown) date) worsening back unknown) pain difficulty urinating difficulty with erections (unknown) (no (unknown) (unknown) topiramate 25 mg (units (unknown) date) tablet 50 mg PO unknown) BID 04/18/21 05/28/21 (unknown) (no (unknown) (unknown) topiramate 25 mg (units (unknown) date) tablet unknown) (unknown) (no (unknown) (unknown) urinary (units (unkno wn) date) retention. No need unknown) for emergent surgery or intervention from a spine (unknown) (no (unknown) (unknown) with worsening (units (unknown) date) back pain along unknown) with difficulty urination concern for cauda (unknown) (no (unknown) (unknown) work he has done (units (unknown) date) lidocaine patches unknown) and everything he normally does but his pain (unknown) (no (unknown) (unknown) young. (units (unkno wn) date) unknown) Result panel 132 (unknown) (no (unknown) (unknown) (no value) (units (unk nown) date) unknown) (unknown) (no (unknown) (unknown) (Janumet) (units (unkn own) date) unknown) (unknown) (no (unknown) (unknown) 03/04/22 03/04/22 (units (unknown) date) Range/Units unknown) (unknown) (no (unknown) (unknown) 03/04/22 10:54 (units (unknown) date) unknown) (unknown) (no (unknown) (unknown) 03/04/22 11:16 (units (unknown) date) unknown) (unknown) (no (unknown) (unknown) 03/04/22 (units (unkno wn) date) unknown) (unknown) (no (unknown) (unknown) 100 mg PO DAILY (units (unknown) date) unknown) (unknown) (no (unknown) (unknown) 10:28 03/04/22 (units (unknown) date) unknown) (unknown) (no (unknown) (unknown) 10:40 03/04/22 (units (unknown) date) unknown) (unknown) (no (unknown) (unknown) 10:40 (units (unkno wn) date) unknown) (unknown) (no (unknown) (unknown) 11:00 03/04/22 (units (unknown) date) unknown) (unknown) (no (unknown) (unknown) 11:16 11:16 (units (un known) date) unknown) (unknown) (no (unknown) (unknown) 11:30 03/04/22 (units (unknown) date) unknown) (unknown) (no (unknown) (unknown) 11:30 (units (unkno wn) date) unknown) (unknown) (no (unknown) (unknown) 13:05 03/04/22 (units (unknown) date) unknown) (unknown) (no (unknown) (unknown) 13:06 03/04/22 (units (unknown) date) unknown) (unknown) (no (unknown) (unknown) 13:06 (units (unkno wn) date) unknown) (unknown) (no (unknown) (unknown) 13:30 03/04/22 (units (unknown) date) unknown) (unknown) (no (unknown) (unknown) 1414 Dr. Parsons, (units (unknown) date) [facility] [place] unknown) patient's symptoms test results has (unknown) (no (unknown) (unknown) 14:00 (units (unkno wn) date) unknown) (unknown) (no (unknown) (unknown) 20 mg PO DAILY (units (unknown) date) unknown) (unknown) (no (unknown) (unknown) 25 mg PO Q6HR PRN (units (unknown) date) (Reason: Spasms) unknown) Qty: 30 0RF (unknown) (no (unknown) (unknown) 30 mg PO DAILY (units (unknown) date) unknown) (unknown) (no (unknown) (unknown) 40 mg PO DAILY (units (unknown) date) unknown) (unknown) (no (unknown) (unknown) [id number] (units (unkno wn) date) unknown) (unknown) (no (unknown) (unknown) 50 - 1,000 tab PO (units (unknown) date) BID unknown) (unknown) (no (unknown) (unknown) 50 mg PO BID (units (u nknown) date) unknown) (unknown) (no (unknown) (unknown) 60 mg PO DAILY (units (unknown) date) unknown) (unknown) (no (unknown) (unknown) ABDOMEN: Soft, (units (unknown) date) nontender. unknown) Normoactive bowel sounds all 4 quadrants. No (unknown) (no (unknown) (unknown) ALT 58 H (<50) (units (unknown) date) IU/L unknown) (unknown) (no (unknown) (unknown) AST 39 (17-59) (units (unknown) date) IU/L unknown) (unknown) (no (unknown) (unknown) Age/Sex: 47 / M (units (unknown) date) unknown) (unknown) (no (unknown) (unknown) Albumin 4.7 (units (un known) date) (3.5-5.0) g/dL unknown) (unknown) (no (unknown) (unknown) Albumin/Globulin (units (unknown) date) Ratio 1.5 unknown) (1.0-2.8) (unknown) (no (unknown) (unknown) Alkaline (units (unkno wn) date) Phosphatase 88 unknown) (38-126) U/L (unknown) (no (unknown) (unknown) Allergies (units (unkn own) date) unknown) (unknown) (no (unknown) (unknown) Allergy/AdvReac (units (unknown) date) Type Severity unknown) Reaction Status Date / Time (unknown) (no (unknown) (unknown) Arthritis (units (unkn own) date) unknown) (unknown) (no (unknown) (unknown) BACK: Tender (units (u nknown) date) midline L1-L2 area unknown) no step-off (unknown) (no (unknown) (unknown) BUN 18 (9-20) (units ( unknown) date) mg/dL unknown) (unknown) (no (unknown) (unknown) BUN/Creatinine (units (unknown) date) Ratio 21.2 (6-22) unknown) (unknown) (no (unknown) (unknown) Baso # (Auto) 0 (units (unknown) date) (0-100) /uL unknown) (unknown) (no (unknown) (unknown) Baso % (Auto) 0.4 (units (unknown) date) (0-2) % unknown) (unknown) (no (unknown) (unknown) Bedside Urine (units ( unknown) date) Bilirubin - unknown) Negative (unknown) (no (unknown) (unknown) Bedside Urine (units ( unknown) date) Glucose Negative unknown) (unknown) (no (unknown) (unknown) Bedside Urine (units ( unknown) date) Ketone - Negative unknown) (unknown) (no (unknown) (unknown) Bedside Urine (units ( unknown) date) Leukocytes - unknown) Negative (unknown) (no (unknown) (unknown) Bedside Urine (units ( unknown) date) Nitrite - Negative unknown) (unknown) (no (unknown) (unknown) Bedside Urine (units ( unknown) date) Occult Blood - unknown) Negative (unknown) (no (unknown) (unknown) Bedside Urine (units ( unknown) date) Protein - Negative unknown) (unknown) (no (unknown) (unknown) Bedside Urine (units ( unknown) date) Urobilinogen - unknown) Negative (unknown) (no (unknown) (unknown) Bedside Urine pH (units (unknown) date) 6.0 unknown) (unknown) (no (unknown) (unknown) Blood Pressure (units (unknown) date) 125/70 unknown) (unknown) (no (unknown) (unknown) Blood Pressure (units (unknown) date) 132/86 unknown) (unknown) (no (unknown) (unknown) Blood Pressure (units (unknown) date) 137/89 03/04/22 unknown) 10:28 (unknown) (no (unknown) (unknown) Blood Pressure (units (unknown) date) 137/89 138/86 unknown) (unknown) (no (unknown) (unknown) Blood Pressure (units (unknown) date) unknown) (unknown) (no (unknown) (unknown) CARDIOVASCULAR: (units (unknown) date) Regular rate and unknown) rhythm without murmurs, rubs or gallops. (unknown) (no (unknown) (unknown) CBC Auto Diff (units ( unknown) date) [Complete Blood unknown) Count AUTO DIFF] Stat (unknown) (no (unknown) (unknown) CMP (units (unkno wn) date) [Comprehensive unknown) Metabolic Panel] Stat (unknown) (no (unknown) (unknown) COVID (-02/2021) (units (unknown) date) unknown) (unknown) (no (unknown) (unknown) Calcium 9.1 (units (un known) date) (8.4-10.2) mg/dL unknown) (unknown) (no (unknown) (unknown) Carbon Dioxide 28 (units (unknown) date) (22-32) mmol/L unknown) (unknown) (no (unknown) (unknown) Chief Complaint: (units (unknown) date) Neuro unknown) Symptoms/Deficit (unknown) (no (unknown) (unknown) Chloride 99 (units (un known) date) (98-107) mmol/L unknown) (unknown) (no (unknown) (unknown) Course (units (unkno wn) date) unknown) (unknown) (no (unknown) (unknown) Creatinine 0.85 (units (unknown) date) (0.66-1.25) mg/dL unknown) (unknown) (no (unknown) (unknown) : 1975 (units (unknown) date) Acct:[id number] unknown) (unknown) (no (unknown) (unknown) Date of Service: (units (unknown) date) 03/04/22 unknown) (unknown) (no (unknown) (unknown) 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 unknown) (unknown) (no (unknown) (unknown) Departure (units (unkn own) date) unknown) (unknown) (no (unknown) (unknown) Depression (units (unk nown) date) unknown) (unknown) (no (unknown) (unknown) Diabetes (units (unkno wn) date) unknown) (unknown) (no (unknown) (unknown) Discharge Plan (units (unknown) date) unknown) (unknown) (no (unknown) (unknown) Discontinued (units (u nknown) date) Medications unknown) (unknown) (no (unknown) (unknown) Documented By: KB (units (unknown) date) unknown) (unknown) (no (unknown) (unknown) Documented By: KM (units (unknown) date) unknown) (unknown) (no (unknown) (unknown) ED Orders (units (unkn own) date) unknown) (unknown) (no (unknown) (unknown) ER Physician: (units ( unknown) date) Wendy Davis unknown) D.O. (unknown) (no (unknown) (unknown) EXTREMITIES: (units (u nknown) date) Normal range of unknown) motion, no clubbing or edema. Neurovascularly (unknown) (no (unknown) (unknown) Emergency Report (units (unknown) date) unknown) (unknown) (no (unknown) (unknown) Eos # (Auto) 100 (units (unknown) date) (0-450) /uL unknown) (unknown) (no (unknown) (unknown) Eos % (Auto) 1.1 (units (unknown) date) L (2-4) % unknown) (unknown) (no (unknown) (unknown) Esterase (units (unkno wn) date) unknown) (unknown) (no (unknown) (unknown) Estimated GFR > (units (unknown) date) 60 (>60) mL/min unknown) (unknown) (no (unknown) (unknown) Exam (units (unkno wn) date) unknown) (unknown) (no (unknown) (unknown) Fracture (units (unkno wn) date) unknown) (unknown) (no (unknown) (unknown) GENERAL: Alert (units (unknown) date) 47-year-old male unknown) and in no acute distress. (unknown) (no (unknown) (unknown) General (units (unkno wn) date) unknown) (unknown) (no (unknown) (unknown) Globulin 3.2 (units (u nknown) date) (1.7-4.1) g/dL unknown) (unknown) (no (unknown) (unknown) Glucose 155 H (units ( unknown) date) (70-100) mg/dL unknown) (unknown) (no (unknown) (unknown) HEENT: Head (units (un known) date) atraumatic,EOMI, unknown) pupils reactive, face symmetric, moist mucous (unknown) (no (unknown) (unknown) HPI - Neuro (units (un known) date) Symptoms/Deficit unknown) (unknown) (no (unknown) (unknown) HPI Narrative: (units (unknown) date) unknown) (unknown) (no (unknown) (unknown) Hct 43.1 (41-53) (units (unknown) date) % unknown) (unknown) (no (unknown) (unknown) Headache, (units (unkn own) date) migraine unknown) (unknown) (no (unknown) (unknown) Hematologic/Lymph (units (unknown) date) atic unknown) (unknown) (no (unknown) (unknown) Hepatic steatosis (units (unknown) date) unknown) (unknown) (no (unknown) (unknown) Hgb 15.3 (units (unkno wn) date) (13.5-17.5) g/dL unknown) (unknown) (no (unknown) (unknown) History of (units (unk nown) date) Present Illness unknown) (unknown) (no (unknown) (unknown) History of hernia (units (unknown) date) repair unknown) (unknown) (no (unknown) (unknown) History of (units (unk nown) date) vasectomy unknown) (unknown) (no (unknown) (unknown) Home Medications (units (unknown) date) unknown) (unknown) (no (unknown) (unknown) Hydromorphone HCl (units (unknown) date) (Hydromorphone 0.5 unknown) Mg Inj) 0.5 mg IV NOW ONE (unknown) (no (unknown) (unknown) Hydromorphone HCl (units (unknown) date) (Hydromorphone 1 unknown) Mg Inj) 1 mg IV NOW ONE (unknown) (no (unknown) (unknown) Hyperlipidemia (units (unknown) date) unknown) (unknown) (no (unknown) (unknown) Hypertension (units (u nknown) date) unknown) (unknown) (no (unknown) (unknown) Initial Vital (units ( unknown) date) Signs unknown) (unknown) (no (unknown) (unknown) Initial Vital (units ( unknown) date) Signs: unknown) (unknown) (no (unknown) (unknown) [facility] (units (unknown) date) [address] unknown) [place] [address] (unknown) (no (unknown) (unknown) Janumet 50-1,000 (units (unknown) date) mg tablet unknown) (unknown) (no (unknown) (unknown) Lab Data (units (unkno wn) date) unknown) (unknown) (no (unknown) (unknown) Lab Results (units (un known) date) unknown) (unknown) (no (unknown) (unknown) Labs: (units (unkno wn) date) unknown) (unknown) (no (unknown) (unknown) Last Admin: (units (un known) date) 03/04/22 11:08 unknown) Dose: 1 mg (unknown) (no (unknown) (unknown) Last Admin: (units (un known) date) 03/04/22 12:16 unknown) Dose: 1 mg (unknown) (no (unknown) (unknown) Last Admin: (units (un known) date) 03/04/22 13:21 unknown) Dose: 1 mg (unknown) (no (unknown) (unknown) Last Admin: (units (un known) date) 03/04/22 15:15 unknown) Dose: 0.5 mg (unknown) (no (unknown) (unknown) Last Admin: (units (un known) date) 03/04/22 15:15 unknown) Dose: 6 ml (unknown) (no (unknown) (unknown) Lidocaine HCl (units ( unknown) date) (Lidocaine 2% unknown) (Glydo) 6 Ml Gel) 6 ml TOP NOW ONE (unknown) (no (unknown) (unknown) Lorazepam (units (unkn own) date) (Lorazepam 2 Mg/Ml unknown) Inj) 1 mg IV NOW ONE (unknown) (no (unknown) (unknown) Lymph # (Auto) (units (unknown) date) 1600 (6798-0829) unknown) /uL (unknown) (no (unknown) (unknown) Lymph % (Auto) (units (unknown) date) 24.0 L (25-40) % unknown) (unknown) (no (unknown) (unknown) MCH 28.7 (26-34) (units (unknown) date) PG unknown) (unknown) (no (unknown) (unknown) MCHC 35.4 (30-36) (units (unknown) date) % unknown) (unknown) (no (unknown) (unknown) MCV 81.0 (80-100) (units (unknown) date) fL unknown) (unknown) (no (unknown) (unknown) MDM - Neuro (units (un known) date) Symptoms/Deficit unknown) (unknown) (no (unknown) (unknown) MDM Narrative (units ( unknown) date) unknown) (unknown) (no (unknown) (unknown) MR lumbar spine (units (unknown) date) wo con Stat unknown) (unknown) (no (unknown) (unknown) Medical History (units (unknown) date) (Reviewed 05/28/21 unknown) @ 14:56 by Delbert Rudolph MD) (unknown) (no (unknown) (unknown) Medical decision (units (unknown) date) making narrative: unknown) (unknown) (no (unknown) (unknown) Medication (units (unk nown) date) Instructions unknown) Recorded Confirmed (unknown) (no (unknown) (unknown) Medication (units (unk nown) date) Instructions unknown) Recorded (unknown) (no (unknown) (unknown) Mode of arrival: (units (unknown) date) Wheelchair unknown) (unknown) (no (unknown) (unknown) [place] # (Auto) 500 (units (unknown) date) (0-900) /uL unknown) (unknown) (no (unknown) (unknown) [place] % (Auto) 7.8 (units (unknown) date) (3-14) % unknown) (unknown) (no (unknown) (unknown) NEUROLOGICAL: (units ( unknown) date) Alert and oriented unknown) x4. Left leg is weak but he is able to lift up (unknown) (no (unknown) (unknown) Neut # (Auto) (units ( unknown) date) 4500 (8623-8974) unknown) /uL (unknown) (no (unknown) (unknown) Neut % (Auto) (units ( unknown) date) 66.7 (50-75) % unknown) (unknown) (no (unknown) (unknown) No Action (units (unkn own) date) unknown) (unknown) (no (unknown) (unknown) On (units (unkno wn) date) Anticoagulants: No unknown) (unknown) (no (unknown) (unknown) Ordered: (units (unkno wn) date) unknown) (unknown) (no (unknown) (unknown) Orders (units (unkno wn) date) unknown) (unknown) (no (unknown) (unknown) Oxygen Delivery (units (unknown) date) Method 03/04/22 unknown) 10:28 (unknown) (no (unknown) (unknown) Oxygen Delivery (units (unknown) date) Method Room Air unknown) (unknown) (no (unknown) (unknown) Oxygen Delivery (units (unknown) date) Method unknown) (unknown) (no (unknown) (unknown) Patient History (units (unknown) date) unknown) (unknown) (no (unknown) (unknown) Patient is a (units (u nknown) date) 47-year-old male unknown) history of diabetes chronic back pain presenting (unknown) (no (unknown) (unknown) Patient is a (units (un known) date) 47-year-old male unknown) with chronic back problems and diabetes presenting (unknown) (no (unknown) (unknown) Patient is still (units (unknown) date) having difficulty unknown) emptying his bladder. (unknown) (no (unknown) (unknown) Patient reports (units (unknown) date) that he actually unknown) does take Flomax but that his prostate has not (unknown) (no (unknown) (unknown) Patient: (units (unkno wn) date) Mehran Abraham R unknown) MR#: [id number] (unknown) (no (unknown) (unknown) Penicillins (units (un known) date) Allergy Mild Rash unknown) Verified 03/04/22 10:33 (unknown) (no (unknown) (unknown) Plt Count 205 (units ( unknown) date) (150-400) X103/uL unknown) (unknown) (no (unknown) (unknown) Potassium 3.1 L (units (unknown) date) (3.4-5.1) mmol/L unknown) (unknown) (no (unknown) (unknown) Prescriptions: (units (unknown) date) unknown) (unknown) (no (unknown) (unknown) Previous Rx's (units ( unknown) date) unknown) (unknown) (no (unknown) (unknown) Pulse Oximetry 94 (units (unknown) date) 92 unknown) (unknown) (no (unknown) (unknown) Pulse Oximetry 94 (units (unknown) date) 93 unknown) (unknown) (no (unknown) (unknown) Pulse Oximetry 94 (units (unknown) date) 94 unknown) (unknown) (no (unknown) (unknown) Pulse Oximetry 97 (units (unknown) date) 03/04/22 10:28 unknown) (unknown) (no (unknown) (unknown) Pulse Oximetry 97 (units (unknown) date) 96 unknown) (unknown) (no (unknown) (unknown) Pulse Rate 70 73 (units (unknown) date) unknown) (unknown) (no (unknown) (unknown) Pulse Rate 74 69 (units (unknown) date) unknown) (unknown) (no (unknown) (unknown) Pulse Rate 76 73 (units (unknown) date) unknown) (unknown) (no (unknown) (unknown) Pulse Rate 87 (units ( unknown) date) 03/04/22 10:28 unknown) (unknown) (no (unknown) (unknown) Pulse Rate 87 80 (units (unknown) date) unknown) (unknown) (no (unknown) (unknown) RBC 5.32 (units (unkno wn) date) (4.5-5.9) X106/uL unknown) (unknown) (no (unknown) (unknown) RDW 14.8 (units (unkno wn) date) (11.6-14.8) % unknown) (unknown) (no (unknown) (unknown) RESPIRATORY: (units (u nknown) date) Breath sounds unknown) equal bilaterally, no wheezes rales or rhonchi. (unknown) (no (unknown) (unknown) Referrals: (units (unk nown) date) unknown) (unknown) (no (unknown) (unknown) Related Data (units (u nknown) date) unknown) (unknown) (no (unknown) (unknown) Respiratory Rate (units (unknown) date) 17 unknown) (unknown) (no (unknown) (unknown) Respiratory Rate (units (unknown) date) 20 03/04/22 10:28 unknown) (unknown) (no (unknown) (unknown) Respiratory Rate (units (unknown) date) 20 unknown) (unknown) (no (unknown) (unknown) Respiratory Rate (units (unknown) date) unknown) (unknown) (no (unknown) (unknown) Result diagrams: (units (unknown) date) unknown) (unknown) (no (unknown) (unknown) Review of Systems (units (unknown) date) unknown) (unknown) (no (unknown) (unknown) Rx Instructions: (units (unknown) date) unknown) (unknown) (no (unknown) (unknown) SKIN: Warm, dry, (units (unknown) date) no laceration, no unknown) petechiae, no rashes or lesions. (unknown) (no (unknown) (unknown) Signed By: (units (unk nown) date) unknown) (unknown) (no (unknown) (unknown) Smoking Status: (units (unknown) date) Never smoker unknown) (unknown) (no (unknown) (unknown) Social History (units (unknown) date) (Reviewed 05/17/21 unknown) @ 13:15 by Mckenna Meza DO) (unknown) (no (unknown) (unknown) Sodium 138 (units (unk nown) date) (137-145) mmol/L unknown) (unknown) (no (unknown) (unknown) Source: patient (units (unknown) date) unknown) (unknown) (no (unknown) (unknown) Stated Complaint: (units (unknown) date) [facility] by [facility]) Hosp. slipped t-8 thinks slipped dis (unknown) (no (unknown) (unknown) Stop: 03/04/22 (units (unknown) date) 11:01 unknown) (unknown) (no (unknown) (unknown) Stop: 03/04/22 (units (unknown) date) 12:13 unknown) (unknown) (no (unknown) (unknown) Stop: 03/04/22 (units (unknown) date) 13:19 unknown) (unknown) (no (unknown) (unknown) Stop: 03/04/22 (units (unknown) date) 15:12 unknown) (unknown) (no (unknown) (unknown) Stop: 03/04/22 (units (unknown) date) 15:13 unknown) (unknown) (no (unknown) (unknown) Substance Use (units ( unknown) date) Type: does not use unknown) (unknown) (no (unknown) (unknown) Surgical History (units (unknown) date) (Reviewed 05/28/21 unknown) @ 14:56 by Delbert Rudolph MD) (unknown) (no (unknown) (unknown) Take 2 capsule by (units (unknown) date) oral route 2 times unknown) every day in the morning and evening (unknown) (no (unknown) (unknown) Temperature 97.8 (units (unknown) date) F 03/04/22 10:28 unknown) (unknown) (no (unknown) (unknown) Temperature 97.8 (units (unknown) date) F unknown) (unknown) (no (unknown) (unknown) Temperature (units (un known) date) unknown) (unknown) (no (unknown) (unknown) Time Seen by (units (u nknown) date) Provider: 03/04/22 unknown) 10:48 (unknown) (no (unknown) (unknown) Total Bilirubin (units (unknown) date) 0.8 (0.2-1.3) unknown) mg/dL (unknown) (no (unknown) (unknown) Total Protein 7.9 (units (unknown) date) (6.3-8.2) g/dL unknown) (unknown) (no (unknown) (unknown) Traumatic (units (unkn own) date) complete tear of unknown) right rotator cuff (unknown) (no (unknown) (unknown) Urine Dip (units (unkn own) date) unknown) (unknown) (no (unknown) (unknown) Urine Specific (units (unknown) date) [employer] 1.025 unknown) (unknown) (no (unknown) (unknown) Poncho Anguiano, (units (unknown) date) DO [Primary Care unknown) Provider] (unknown) (no (unknown) (unknown) Vital Signs - 8 (units (unknown) date) hr unknown) (unknown) (no (unknown) (unknown) Vital Signs (units (un known) date) unknown) (unknown) (no (unknown) (unknown) Vital signs: (units (u nknown) date) unknown) (unknown) (no (unknown) (unknown) WBC 6.7 (units (unkno wn) date) (4.5-11.0) X103/uL unknown) (unknown) (no (unknown) (unknown) With Meals (units (unk nown) date) unknown) (unknown) (no (unknown) (unknown) [Embedded Image (units (unknown) date) Not Available] unknown) (unknown) (no (unknown) (unknown) ablation. A month (units (unknown) date) ago he was seen at unknown) [facility] for further neurologic testing he (unknown) (no (unknown) (unknown) acute finding. So (units (unknown) date) disc L4-L5 is new unknown) probably from injury on the 1st but (unknown) (no (unknown) (unknown) alcohol intake (units (unknown) date) frequency: unknown) holidays/special occasions only (unknown) (no (unknown) (unknown) along left leg (units (unknown) date) weakness. he unknown) reports that he had an injury where he slipped and (unknown) (no (unknown) (unknown) any urinary or (units (unknown) date) stool unknown) incontinence. He does have some left leg weakness is at (unknown) (no (unknown) (unknown) atorvastatin 20 (units (unknown) date) mg tablet 20 mg PO unknown) DAILY 04/18/21 05/28/21 (unknown) (no (unknown) (unknown) atorvastatin 20 (units (unknown) date) mg tablet unknown) (unknown) (no (unknown) (unknown) baseline but it (units (unknown) date) seems to be unknown) getting a little bit worse. He is had multiple back (unknown) (no (unknown) (unknown) been checked in a (units (unknown) date) while. Possible unknown) BPH problem although patient is relatively (unknown) (no (unknown) (unknown) bilateral neural (units (unknown) date) foraminal unknown) narrowing. Previous MRI from 11/23/2021, shows no (unknown) (no (unknown) (unknown) celecoxib 100 mg (units (unknown) date) capsule 100 mg PO unknown) DAILY 04/18/21 05/28/21 (unknown) (no (unknown) (unknown) celecoxib 100 mg (units (unknown) date) capsule unknown) (unknown) (no (unknown) (unknown) chills. No IVDA. (units (unknown) date) He gets back pain unknown) regularly he has medications that usually (unknown) (no (unknown) (unknown) concern for an (units (unknown) date) infection. Blood unknown) work is overall reassuring without (unknown) (no (unknown) (unknown) difficult to say. (units (unknown) date) unknown) (unknown) (no (unknown) (unknown) duloxetine 30 mg (units (unknown) date) capsule,delayed 30 unknown) mg PO DAILY 04/18/21 05/28/21 (unknown) (no (unknown) (unknown) duloxetine 30 mg (units (unknown) date) capsule,delayed unknown) release(DR/EC) (unknown) (no (unknown) (unknown) duloxetine 60 mg (units (unknown) date) capsule,delayed 60 unknown) mg PO DAILY 04/18/21 05/28/21 (unknown) (no (unknown) (unknown) duloxetine 60 mg (units (unknown) date) capsule,delayed unknown) release(DR/EC) (unknown) (no (unknown) (unknown) equina or (units (unkn own) date) epidural abscess. unknown) Patient is requiring Dilaudid for pain medication (unknown) (no (unknown) (unknown) equina or spinal (units (unknown) date) cord edema. There unknown) is a mild central canal stenosis and mild (unknown) (no (unknown) (unknown) erections and (units ( unknown) date) feels like he is unknown) not emptying his bladder all the way. He denies (unknown) (no (unknown) (unknown) fell while (units (unk nown) date) golfing on February unknown) . Since then he is had difficult time with (unknown) (no (unknown) (unknown) guarding or (units (un known) date) rebound. unknown) (unknown) (no (unknown) (unknown) had an EEG and (units (unknown) date) other test unknown) specifically for his left leg. He denies any fevers (unknown) (no (unknown) (unknown) household (units (unkn own) date) members: children unknown) (unknown) (no (unknown) (unknown) hydroxyzine (units (un known) date) pamoate 25 mg unknown) Capsule (unknown) (no (unknown) (unknown) hydroxyzine (units (un known) date) pamoate 25 mg unknown) capsule 25 mg PO Q6HR PRN Spasms #30 caps 04/20/21 (unknown) (no (unknown) (unknown) in the emergency (units (unknown) date) department. He is unknown) afebrile and not complaining of fever no (unknown) (no (unknown) (unknown) intact (units (unkno wn) date) unknown) (unknown) (no (unknown) (unknown) is 155. MRI does (units (unknown) date) show disc bulge at unknown) L4-L5 region but no evidence of cauda (unknown) (no (unknown) (unknown) is quite out of (units (unknown) date) control. Last unknown) night he needed pain medication and alcohol in (unknown) (no (unknown) (unknown) leukocytosis. (units ( unknown) date) There is no unknown) evidence of electrolyte abnormality or DKA. Glucose (unknown) (no (unknown) (unknown) lisinopril 40 mg (units (unknown) date) tablet 40 mg PO unknown) DAILY 04/18/21 05/28/21 (unknown) (no (unknown) (unknown) lisinopril 40 mg (units (unknown) date) tablet unknown) (unknown) (no (unknown) (unknown) membranes (units (unkn own) date) unknown) (unknown) (no (unknown) (unknown) mg-metformin (units (u nknown) date) 1,000 mg tablet unknown) (unknown) (no (unknown) (unknown) off the gurney. (units (unknown) date) Decreased unknown) sensation in the left leg starting just inferior to (unknown) (no (unknown) (unknown) order to go to (units (unknown) date) sleep unknown) (unknown) (no (unknown) (unknown) perspective. (units (u nknown) date) unknown) (unknown) (no (unknown) (unknown) release (units (unkno wn) date) unknown) (unknown) (no (unknown) (unknown) reviewed MRI (units (un known) date) himself reports unknown) that there is a disc but it is unlikely causing his (unknown) (no (unknown) (unknown) sitagliptin (units (un known) date) phosphate 50 50 - unknown) 1,000 tab PO BID 04/18/21 05/28/21 (unknown) (no (unknown) (unknown) the knee. (units (unkn own) date) unknown) (unknown) (no (unknown) (unknown) today with (units (unk nown) date) worsening back unknown) pain difficulty urinating difficulty with erections (unknown) (no (unknown) (unknown) topiramate 25 mg (units (unknown) date) tablet 50 mg PO unknown) BID 04/18/21 05/28/21 (unknown) (no (unknown) (unknown) topiramate 25 mg (units (unknown) date) tablet unknown) (unknown) (no (unknown) (unknown) urinary (units (unkno wn) date) retention. No need unknown) for emergent surgery or intervention from a spine (unknown) (no (unknown) (unknown) with worsening (units (unknown) date) back pain along unknown) with difficulty urination concern for cauda (unknown) (no (unknown) (unknown) work he has done (units (unknown) date) lidocaine patches unknown) and everything he normally does but his pain (unknown) (no (unknown) (unknown) young. (units (unkno wn) date) unknown) Result panel 133 (unknown) (no (unknown) (unknown) (no value) (units (unk nown) date) unknown) (unknown) (no (unknown) (unknown) (Janumet) (units (unkn own) date) unknown) (unknown) (no (unknown) (unknown) TRAMADOL DOES (units (unknown) date) NOT CONTAIN unknown) TYLENOL (unknown) (no (unknown) (unknown) *Continue to take (units (unknown) date) medications as unknown) directed (unknown) (no (unknown) (unknown) *Follow up with (units (unknown) date) your primary care unknown) provider in 2-3 days or call [phone] (unknown) (no (unknown) (unknown) *Return to ER if (units (unknown) date) you should have unknown) worsening pain worsening weakness loss of stool (unknown) (no (unknown) (unknown) *What to do: It (units (unknown) date) is thought that unknown) you herniated disc and urinary retention are (unknown) (no (unknown) (unknown) *You have been (units (unknown) date) diagnosed with unknown) herniated disc L4-L5, urinary retention (unknown) (no (unknown) (unknown) 03/04/22 03/04/22 (units (unknown) date) Range/Units unknown) (unknown) (no (unknown) (unknown) 03/04/22 10:54 (units (unknown) date) unknown) (unknown) (no (unknown) (unknown) 03/04/22 11:16 (units (unknown) date) unknown) (unknown) (no (unknown) (unknown) 03/04/22 (units (unkno wn) date) unknown) (unknown) (no (unknown) (unknown) 1. You have been (units (unknown) date) prescribed unknown) narcotic medications, it does have (unknown) (no (unknown) (unknown) 100 mg PO DAILY (units (unknown) date) unknown) (unknown) (no (unknown) (unknown) 10:28 03/04/22 (units (unknown) date) unknown) (unknown) (no (unknown) (unknown) 10:40 03/04/22 (units (unknown) date) unknown) (unknown) (no (unknown) (unknown) 10:40 (units (unkno wn) date) unknown) (unknown) (no (unknown) (unknown) 11:00 03/04/22 (units (unknown) date) unknown) (unknown) (no (unknown) (unknown) 11:16 11:16 (units (un known) date) unknown) (unknown) (no (unknown) (unknown) 11:30 03/04/22 (units (unknown) date) unknown) (unknown) (no (unknown) (unknown) 11:30 (units (unkno wn) date) unknown) (unknown) (no (unknown) (unknown) 13:05 03/04/22 (units (unknown) date) unknown) (unknown) (no (unknown) (unknown) 13:06 03/04/22 (units (unknown) date) unknown) (unknown) (no (unknown) (unknown) 13:06 (units (unkno wn) date) unknown) (unknown) (no (unknown) (unknown) 13:30 03/04/22 (units (unknown) date) unknown) (unknown) (no (unknown) (unknown) 1414 Dr. Parsons, (units (unknown) date) [facility] [place] unknown) patient's symptoms test results has (unknown) (no (unknown) (unknown) 14:00 (units (unkno wn) date) unknown) (unknown) (no (unknown) (unknown) 1645-Dr. Kaye (units (unknown) date) spine surgery at unknown) [facility] has reviewed MRI concern for (unknown) (no (unknown) (unknown) 2. Please (units (unkn own) date) understand that we unknown) cannot provide further refills of narcotics, (unknown) (no (unknown) (unknown) 20 mg PO DAILY (units (unknown) date) unknown) (unknown) (no (unknown) (unknown) 25 mg PO Q6HR PRN (units (unknown) date) (Reason: Spasms) unknown) Qty: 30 0RF (unknown) (no (unknown) (unknown) 3. While on these (units (unknown) date) medications you unknown) cannot drive or operate heavy machinery. (unknown) (no (unknown) (unknown) 30 mg PO DAILY (units (unknown) date) unknown) (unknown) (no (unknown) (unknown) 4. You cannot (units ( unknown) date) sign legal unknown) documents or perform any duties such as this. (unknown) (no (unknown) (unknown) 40 mg PO DAILY (units (unknown) date) unknown) (unknown) (no (unknown) (unknown) [id number] (units (unkno wn) date) unknown) (unknown) (no (unknown) (unknown) 5. As long as (units ( unknown) date) you're taking unknown) opiate pain medications he should also be taking a (unknown) (no (unknown) (unknown) 50 - 1,000 tab PO (units (unknown) date) BID unknown) (unknown) (no (unknown) (unknown) 50 mg PO BID (units (u nknown) date) unknown) (unknown) (no (unknown) (unknown) 60 mg PO DAILY (units (unknown) date) unknown) (unknown) (no (unknown) (unknown) ABDOMEN: Soft, (units (unknown) date) nontender. unknown) Normoactive bowel sounds all 4 quadrants. No (unknown) (no (unknown) (unknown) ALT 58 H (<50) (units (unknown) date) IU/L unknown) (unknown) (no (unknown) (unknown) AST 39 (17-59) (units (unknown) date) IU/L unknown) (unknown) (no (unknown) (unknown) Activity (units (unkno wn) date) Restrictions/Addit unknown) ional Instructions: (unknown) (no (unknown) (unknown) Age/Sex: 47 / M (units (unknown) date) unknown) (unknown) (no (unknown) (unknown) Albumin 4.7 (units (un known) date) (3.5-5.0) g/dL unknown) (unknown) (no (unknown) (unknown) Albumin/Globulin (units (unknown) date) Ratio 1.5 unknown) (1.0-2.8) (unknown) (no (unknown) (unknown) Alkaline (units (unkno wn) date) Phosphatase 88 unknown) (38-126) U/L (unknown) (no (unknown) (unknown) Allergies (units (unkn own) date) unknown) (unknown) (no (unknown) (unknown) Allergy/AdvReac (units (unknown) date) Type Severity unknown) Reaction Status Date / Time (unknown) (no (unknown) (unknown) Arthritis (units (unkn own) date) unknown) (unknown) (no (unknown) (unknown) BACK: Tender (units (u nknown) date) midline L1-L2 area unknown) no step-off (unknown) (no (unknown) (unknown) BUN 18 (9-20) (units ( unknown) date) mg/dL unknown) (unknown) (no (unknown) (unknown) BUN/Creatinine (units (unknown) date) Ratio 21.2 (6-22) unknown) (unknown) (no (unknown) (unknown) Baso # (Auto) 0 (units (unknown) date) (0-100) /uL unknown) (unknown) (no (unknown) (unknown) Baso % (Auto) 0.4 (units (unknown) date) (0-2) % unknown) (unknown) (no (unknown) (unknown) Bedside Urine (units ( unknown) date) Bilirubin - unknown) Negative (unknown) (no (unknown) (unknown) Bedside Urine (units ( unknown) date) Glucose Negative unknown) (unknown) (no (unknown) (unknown) Bedside Urine (units ( unknown) date) Ketone - Negative unknown) (unknown) (no (unknown) (unknown) Bedside Urine (units ( unknown) date) Leukocytes - unknown) Negative (unknown) (no (unknown) (unknown) Bedside Urine (units ( unknown) date) Nitrite - Negative unknown) (unknown) (no (unknown) (unknown) Bedside Urine (units ( unknown) date) Occult Blood - unknown) Negative (unknown) (no (unknown) (unknown) Bedside Urine (units ( unknown) date) Protein - Negative unknown) (unknown) (no (unknown) (unknown) Bedside Urine (units ( unknown) date) Urobilinogen - unknown) Negative (unknown) (no (unknown) (unknown) Bedside Urine pH (units (unknown) date) 6.0 unknown) (unknown) (no (unknown) (unknown) Blood Pressure (units (unknown) date) 125/70 unknown) (unknown) (no (unknown) (unknown) Blood Pressure (units (unknown) date) 132/86 unknown) (unknown) (no (unknown) (unknown) Blood Pressure (units (unknown) date) 137/89 03/04/22 unknown) 10:28 (unknown) (no (unknown) (unknown) Blood Pressure (units (unknown) date) 137/89 138/86 unknown) (unknown) (no (unknown) (unknown) Blood Pressure (units (unknown) date) unknown) (unknown) (no (unknown) (unknown) CARDIOVASCULAR: (units (unknown) date) Regular rate and unknown) rhythm without murmurs, rubs or gallops. (unknown) (no (unknown) (unknown) CBC Auto Diff (units ( unknown) date) [Complete Blood unknown) Count AUTO DIFF] Stat (unknown) (no (unknown) (unknown) CMP (units (unkno wn) date) [Comprehensive unknown) Metabolic Panel] Stat (unknown) (no (unknown) (unknown) CONTROLLED (units (unk n) date) SUBSTANCE unknown) DISCHARGE (Narcotoic/benzodi azepine/Flexeril/P henergan) (unknown) (no (unknown) (unknown) COVID (-02/2021) (units (unknown) date) unknown) (unknown) (no (unknown) (unknown) Calcium 9.1 (units (un known) date) (8.4-10.2) mg/dL unknown) (unknown) (no (unknown) (unknown) Carbon Dioxide 28 (units (unknown) date) (22-32) mmol/L unknown) (unknown) (no (unknown) (unknown) Chief Complaint: (units (unknown) date) Neuro unknown) Symptoms/Deficit (unknown) (no (unknown) (unknown) Chloride 99 (units (un known) date) (98-107) mmol/L unknown) (unknown) (no (unknown) (unknown) Clinical (units (o wn) date) Impression: unknown) (unknown) (no (unknown) (unknown) Course (units (unkno wn) date) unknown) (unknown) (no (unknown) (unknown) Creatinine 0.85 (units (unknown) date) (0.66-1.25) mg/dL unknown) (unknown) (no (unknown) (unknown) Cyclobenzaprine 5 (units (unknown) date) mg every 8 hours unknown) if needed for muscle spasm (unknown) (no (unknown) (unknown) : 1975 (units (unknown) date) Acct:[id number] unknown) (unknown) (no (unknown) (unknown) Date of Service: (units (unknown) date) 03/04/22 unknown) (unknown) (no (unknown) (unknown) 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 unknown) (unknown) (no (unknown) (unknown) Departure (units (unkn own) date) unknown) (unknown) (no (unknown) (unknown) Depression (units (unk nown) date) unknown) (unknown) (no (unknown) (unknown) Diabetes (units (unkno wn) date) unknown) (unknown) (no (unknown) (unknown) Discharge Plan (units (unknown) date) unknown) (unknown) (no (unknown) (unknown) Discontinued (units (u nknown) date) Medications unknown) (unknown) (no (unknown) (unknown) Documented By: KB (units (unknown) date) unknown) (unknown) (no (unknown) (unknown) Documented By: KM (units (unknown) date) unknown) (unknown) (no (unknown) (unknown) ED Orders (units (unkn own) date) unknown) (unknown) (no (unknown) (unknown) ER Physician: (units ( unknown) date) Wendy Davis unknown) D.O. (unknown) (no (unknown) (unknown) EXTREMITIES: (units (u nknown) date) Normal range of unknown) motion, no clubbing or edema. Neurovascularly (unknown) (no (unknown) (unknown) Emergency Report (units (unknown) date) unknown) (unknown) (no (unknown) (unknown) Eos # (Auto) 100 (units (unknown) date) (0-450) /uL unknown) (unknown) (no (unknown) (unknown) Eos % (Auto) 1.1 (units (unknown) date) L (2-4) % unknown) (unknown) (no (unknown) (unknown) Esterase (units (unkno wn) date) unknown) (unknown) (no (unknown) (unknown) Estimated GFR > (units (unknown) date) 60 (>60) mL/min unknown) (unknown) (no (unknown) (unknown) Exam (units (unkno wn) date) unknown) (unknown) (no (unknown) (unknown) Fracture (units (unkno wn) date) unknown) (unknown) (no (unknown) (unknown) GENERAL: Alert (units (unknown) date) 47-year-old male unknown) and in no acute distress. (unknown) (no (unknown) (unknown) General (units (unkno wn) date) unknown) (unknown) (no (unknown) (unknown) Globulin 3.2 (units (u nknown) date) (1.7-4.1) g/dL unknown) (unknown) (no (unknown) (unknown) Glucose 155 H (units ( unknown) date) (70-100) mg/dL unknown) (unknown) (no (unknown) (unknown) HEENT: Head (units (un known) date) atraumatic,EOMI, unknown) pupils reactive, face symmetric, moist mucous (unknown) (no (unknown) (unknown) HPI - Neuro (units (un known) date) Symptoms/Deficit unknown) (unknown) (no (unknown) (unknown) HPI Narrative: (units (unknown) date) unknown) (unknown) (no (unknown) (unknown) Hct 43.1 (41-53) (units (unknown) date) % unknown) (unknown) (no (unknown) (unknown) Headache, (units (unkn own) date) migraine unknown) (unknown) (no (unknown) (unknown) Hematologic/Lymph (units (unknown) date) atic unknown) (unknown) (no (unknown) (unknown) Hepatic steatosis (units (unknown) date) unknown) (unknown) (no (unknown) (unknown) Herniated disc, (units (unknown) date) Acute urinary unknown) retention (unknown) (no (unknown) (unknown) Hgb 15.3 (units (unkno wn) date) (13.5-17.5) g/dL unknown) (unknown) (no (unknown) (unknown) History of (units (unk nown) date) Present Illness unknown) (unknown) (no (unknown) (unknown) History of hernia (units (unknown) date) repair unknown) (unknown) (no (unknown) (unknown) History of (units (unk nown) date) vasectomy unknown) (unknown) (no (unknown) (unknown) Home Medications (units (unknown) date) unknown) (unknown) (no (unknown) (unknown) Hydromorphone HCl (units (unknown) date) (Hydromorphone 0.5 unknown) Mg Inj) 0.5 mg IV NOW ONE (unknown) (no (unknown) (unknown) Hydromorphone HCl (units (unknown) date) (Hydromorphone 1 unknown) Mg Inj) 1 mg IV NOW ONE (unknown) (no (unknown) (unknown) Hyperlipidemia (units (unknown) date) unknown) (unknown) (no (unknown) (unknown) Hypertension (units (u nknown) date) unknown) (unknown) (no (unknown) (unknown) Initial Vital (units ( unknown) date) Signs unknown) (unknown) (no (unknown) (unknown) Initial Vital (units ( unknown) date) Signs: unknown) (unknown) (no (unknown) (unknown) Instructions: DI (units (unknown) date) for Herniated unknown) Disc, How to Care for Your Allen Catheter (unknown) (no (unknown) (unknown) [facility] (units (unknown) date) [address] unknown) [place] [address] (unknown) (no (unknown) (unknown) Janumet 50-1,000 (units (unknown) date) mg tablet unknown) (unknown) (no (unknown) (unknown) Lab Data (units (unkno wn) date) unknown) (unknown) (no (unknown) (unknown) Lab Results (units (un known) date) unknown) (unknown) (no (unknown) (unknown) Labs: (units (unkno wn) date) unknown) (unknown) (no (unknown) (unknown) Last Admin: (units (un known) date) 03/04/22 11:08 unknown) Dose: 1 mg (unknown) (no (unknown) (unknown) Last Admin: (units (un known) date) 03/04/22 12:16 unknown) Dose: 1 mg (unknown) (no (unknown) (unknown) Last Admin: (units (un known) date) 03/04/22 13:21 unknown) Dose: 1 mg (unknown) (no (unknown) (unknown) Last Admin: (units (un known) date) 03/04/22 15:15 unknown) Dose: 0.5 mg (unknown) (no (unknown) (unknown) Last Admin: (units (un known) date) 03/04/22 15:15 unknown) Dose: 6 ml (unknown) (no (unknown) (unknown) Lidocaine HCl (units ( unknown) date) (Lidocaine 2% unknown) (Glydo) 6 Ml Gel) 6 ml TOP NOW ONE (unknown) (no (unknown) (unknown) Lorazepam (units (unkn own) date) (Lorazepam 2 Mg/Ml unknown) Inj) 1 mg IV NOW ONE (unknown) (no (unknown) (unknown) Lymph # (Auto) (units (unknown) date) 1600 ([id number]) unknown) /uL (unknown) (no (unknown) (unknown) Lymph % (Auto) (units (unknown) date) 24.0 L (25-40) % unknown) (unknown) (no (unknown) (unknown) MCH 28.7 (26-34) (units (unknown) date) PG unknown) (unknown) (no (unknown) (unknown) MCHC 35.4 (30-36) (units (unknown) date) % unknown) (unknown) (no (unknown) (unknown) MCV 81.0 (80-100) (units (unknown) date) fL unknown) (unknown) (no (unknown) (unknown) MDM - Neuro (units (un known) date) Symptoms/Deficit unknown) (unknown) (no (unknown) (unknown) MDM Narrative (units ( unknown) date) unknown) (unknown) (no (unknown) (unknown) MR lumbar spine (units (unknown) date) wo con Stat unknown) (unknown) (no (unknown) (unknown) Male, DI for (units (u nknown) date) Urinary Retention unknown) in Men (unknown) (no (unknown) (unknown) Medical History (units (unknown) date) (Reviewed 05/28/21 unknown) @ 14:56 by Delbert Rudolph MD) (unknown) (no (unknown) (unknown) Medical decision (units (unknown) date) making narrative: unknown) (unknown) (no (unknown) (unknown) Medication (units (unk nown) date) Instructions unknown) Recorded Confirmed (unknown) (no (unknown) (unknown) Medication (units (unk nown) date) Instructions unknown) Recorded (unknown) (no (unknown) (unknown) Mode of arrival: (units (unknown) date) Wheelchair unknown) (unknown) (no (unknown) (unknown) [place] # (Auto) 500 (units (unknown) date) (0-900) /uL unknown) (unknown) (no (unknown) (unknown) [place] % (Auto) 7.8 (units (unknown) date) (3-14) % unknown) (unknown) (no (unknown) (unknown) NEUROLOGICAL: (units ( unknown) date) Alert and oriented unknown) x4. Left leg is weak but he is able to lift up (unknown) (no (unknown) (unknown) Neut # (Auto) (units ( unknown) date) 4500 (7728-0232) unknown) /uL (unknown) (no (unknown) (unknown) Neut % (Auto) (units ( unknown) date) 66.7 (50-75) % unknown) (unknown) (no (unknown) (unknown) No Action (units (unkn own) date) unknown) (unknown) (no (unknown) (unknown) Rawlings 1 tablet (units (unknown) date) every 6 hours if unknown) needed for severe pain (unknown) (no (unknown) (unknown) On (units (unkno wn) date) Anticoagulants: No unknown) (unknown) (no (unknown) (unknown) Ordered: (units (unkno wn) date) unknown) (unknown) (no (unknown) (unknown) Orders (units (unkno wn) date) unknown) (unknown) (no (unknown) (unknown) Oxygen Delivery (units (unknown) date) Method 03/04/22 unknown) 10:28 (unknown) (no (unknown) (unknown) Oxygen Delivery (units (unknown) date) Method Room Air unknown) (unknown) (no (unknown) (unknown) Oxygen Delivery (units (unknown) date) Method unknown) (unknown) (no (unknown) (unknown) Patient (units (unkno wn) date) Disposition: Home unknown) (unknown) (no (unknown) (unknown) Patient History (units (unknown) date) unknown) (unknown) (no (unknown) (unknown) Patient is a (units (u nknown) date) 47-year-old male unknown) history of diabetes chronic back pain presenting (unknown) (no (unknown) (unknown) Patient is a (units (un known) date) 47-year-old male unknown) with chronic back problems and diabetes presenting (unknown) (no (unknown) (unknown) Patient is still (units (unknown) date) having difficulty unknown) emptying his bladder. (unknown) (no (unknown) (unknown) Patient reports (units (unknown) date) that he actually unknown) does take Flomax but that his prostate has not (unknown) (no (unknown) (unknown) Patient: (units (unkno wn) date) Mehran Abraham R unknown) MR#: [id number] (unknown) (no (unknown) (unknown) Penicillins (units (un known) date) Allergy Mild Rash unknown) Verified 03/04/22 10:33 (unknown) (no (unknown) (unknown) Plt Count 205 (units ( unknown) date) (150-400) X103/uL unknown) (unknown) (no (unknown) (unknown) Potassium 3.1 L (units (unknown) date) (3.4-5.1) mmol/L unknown) (unknown) (no (unknown) (unknown) Prednisone 40 mg (units (unknown) date) once a day for 5 unknown) days (unknown) (no (unknown) (unknown) Prescriptions: (units (unknown) date) unknown) (unknown) (no (unknown) (unknown) Previous Rx's (units ( unknown) date) unknown) (unknown) (no (unknown) (unknown) Pulse Oximetry 94 (units (unknown) date) 92 unknown) (unknown) (no (unknown) (unknown) Pulse Oximetry 94 (units (unknown) date) 93 unknown) (unknown) (no (unknown) (unknown) Pulse Oximetry 94 (units (unknown) date) 94 unknown) (unknown) (no (unknown) (unknown) Pulse Oximetry 97 (units (unknown) date) 03/04/22 10:28 unknown) (unknown) (no (unknown) (unknown) Pulse Oximetry 97 (units (unknown) date) 96 unknown) (unknown) (no (unknown) (unknown) Pulse Rate 70 73 (units (unknown) date) unknown) (unknown) (no (unknown) (unknown) Pulse Rate 74 69 (units (unknown) date) unknown) (unknown) (no (unknown) (unknown) Pulse Rate 76 73 (units (unknown) date) unknown) (unknown) (no (unknown) (unknown) Pulse Rate 87 (units ( unknown) date) 03/04/22 10:28 unknown) (unknown) (no (unknown) (unknown) Pulse Rate 87 80 (units (unknown) date) unknown) (unknown) (no (unknown) (unknown) RBC 5.32 (units (unkno wn) date) (4.5-5.9) X106/uL unknown) (unknown) (no (unknown) (unknown) RDW 14.8 (units (unkno wn) date) (11.6-14.8) % unknown) (unknown) (no (unknown) (unknown) RESPIRATORY: (units (u nknown) date) Breath sounds unknown) equal bilaterally, no wheezes rales or rhonchi. (unknown) (no (unknown) (unknown) Referrals: (units (unk nown) date) unknown) (unknown) (no (unknown) (unknown) Related Data (units (u nknown) date) unknown) (unknown) (no (unknown) (unknown) Respiratory Rate (units (unknown) date) 17 unknown) (unknown) (no (unknown) (unknown) Respiratory Rate (units (unknown) date) 20 03/04/22 10:28 unknown) (unknown) (no (unknown) (unknown) Respiratory Rate (units (unknown) date) 20 unknown) (unknown) (no (unknown) (unknown) Respiratory Rate (units (unknown) date) unknown) (unknown) (no (unknown) (unknown) Result diagrams: (units (unknown) date) unknown) (unknown) (no (unknown) (unknown) Review of Systems (units (unknown) date) unknown) (unknown) (no (unknown) (unknown) Rx Instructions: (units (unknown) date) unknown) (unknown) (no (unknown) (unknown) SKIN: Warm, dry, (units (unknown) date) no laceration, no unknown) petechiae, no rashes or lesions. (unknown) (no (unknown) (unknown) Signed By: (units (unk nown) date) unknown) (unknown) (no (unknown) (unknown) Smoking Status: (units (unknown) date) Never smoker unknown) (unknown) (no (unknown) (unknown) Social History (units (unknown) date) (Reviewed 05/17/21 unknown) @ 13:15 by Mckenna Meza DO) (unknown) (no (unknown) (unknown) Sodium 138 (units (unk nown) date) (137-145) mmol/L unknown) (unknown) (no (unknown) (unknown) Source: patient (units (unknown) date) unknown) (unknown) (no (unknown) (unknown) Stand Alone (units (un known) date) Forms: Patient unknown) Portal/API (unknown) (no (unknown) (unknown) Stated Complaint: (units (unknown) date) sent by [facility]) Hosp. slipped t-8 thinks slipped dis (unknown) (no (unknown) (unknown) Stop: 03/04/22 (units (unknown) date) 11:01 unknown) (unknown) (no (unknown) (unknown) Stop: 03/04/22 (units (unknown) date) 12:13 unknown) (unknown) (no (unknown) (unknown) Stop: 03/04/22 (units (unknown) date) 13:19 unknown) (unknown) (no (unknown) (unknown) Stop: 03/04/22 (units (unknown) date) 15:12 unknown) (unknown) (no (unknown) (unknown) Stop: 03/04/22 (units (unknown) date) 15:13 unknown) (unknown) (no (unknown) (unknown) Substance Use (units ( unknown) date) Type: does not use unknown) (unknown) (no (unknown) (unknown) Surgical History (units (unknown) date) (Reviewed 05/28/21 unknown) @ 14:56 by Delbert Rudolph MD) (unknown) (no (unknown) (unknown) Take 2 capsule by (units (unknown) date) oral route 2 times unknown) every day in the morning and evening (unknown) (no (unknown) (unknown) Temperature 97.8 (units (unknown) date) F 03/04/22 10:28 unknown) (unknown) (no (unknown) (unknown) Temperature 97.8 (units (unknown) date) F unknown) (unknown) (no (unknown) (unknown) Temperature (units (un known) date) unknown) (unknown) (no (unknown) (unknown) Time Seen by (units (u nknown) date) Provider: 03/04/22 unknown) 10:48 (unknown) (no (unknown) (unknown) Total Bilirubin (units (unknown) date) 0.8 (0.2-1.3) unknown) mg/dL (unknown) (no (unknown) (unknown) Total Protein 7.9 (units (unknown) date) (6.3-8.2) g/dL unknown) (unknown) (no (unknown) (unknown) Traumatic (units (unkn own) date) complete tear of unknown) right rotator cuff (unknown) (no (unknown) (unknown) Urine Dip (units (unkn own) date) unknown) (unknown) (no (unknown) (unknown) Urine Specific (units (unknown) date) [employer] 1.025 unknown) (unknown) (no (unknown) (unknown) Poncho Anguiano, (units (unknown) date) DO [Primary Care unknown) Provider] (unknown) (no (unknown) (unknown) Vital Signs - 8 (units (unknown) date) hr unknown) (unknown) (no (unknown) (unknown) Vital Signs (units (un known) date) unknown) (unknown) (no (unknown) (unknown) Vital signs: (units (u nknown) date) unknown) (unknown) (no (unknown) (unknown) WBC 6.7 (units (unkno wn) date) (4.5-11.0) X103/uL unknown) (unknown) (no (unknown) (unknown) With Meals (units (unk nown) date) unknown) (unknown) (no (unknown) (unknown) [Embedded Image (units (unknown) date) Not Available] unknown) (unknown) (no (unknown) (unknown) ablation. A month (units (unknown) date) ago he was seen at unknown) [facility] for further neurologic testing he (unknown) (no (unknown) (unknown) acetaminophen/Tyl (units (unknown) date) enol/paracetamol unknown) in it, DO NOT TAKE MORE THAN 4,00mg in 24 (unknown) (no (unknown) (unknown) acute finding. So (units (unknown) date) disc L4-L5 is new unknown) probably from injury on the 1st but (unknown) (no (unknown) (unknown) alcohol intake (units (unknown) date) frequency: unknown) holidays/special occasions only (unknown) (no (unknown) (unknown) along left leg (units (unknown) date) weakness. he unknown) reports that he had an injury where he slipped and (unknown) (no (unknown) (unknown) also need to (units (u nknown) date) follow-up with unknown) orthopedics spine in regards to your back. (unknown) (no (unknown) (unknown) any urinary or (units (unknown) date) stool unknown) incontinence. He does have some left leg weakness is at (unknown) (no (unknown) (unknown) atorvastatin 20 (units (unknown) date) mg tablet 20 mg PO unknown) DAILY 04/18/21 05/28/21 (unknown) (no (unknown) (unknown) atorvastatin 20 (units (unknown) date) mg tablet unknown) (unknown) (no (unknown) (unknown) baseline but it (units (unknown) date) seems to be unknown) getting a little bit worse. He is had multiple back (unknown) (no (unknown) (unknown) been checked in a (units (unknown) date) while. Possible unknown) BPH problem although patient is relatively (unknown) (no (unknown) (unknown) benzodiazepines (units (unknown) date) or controlled unknown) substances through the ED and her pain management (unknown) (no (unknown) (unknown) bilateral neural (units (unknown) date) foraminal unknown) narrowing. Previous MRI from 11/23/2021, shows no (unknown) (no (unknown) (unknown) celecoxib 100 mg (units (unknown) date) capsule 100 mg PO unknown) DAILY 04/18/21 05/28/21 (unknown) (no (unknown) (unknown) celecoxib 100 mg (units (unknown) date) capsule unknown) (unknown) (no (unknown) (unknown) chills. No IVDA. (units (unknown) date) He gets back pain unknown) regularly he has medications that usually (unknown) (no (unknown) (unknown) concern for an (units (unknown) date) infection. Blood unknown) work is overall reassuring without (unknown) (no (unknown) (unknown) constipation. (units ( unknown) date) unknown) (unknown) (no (unknown) (unknown) difficult to say. (units (unknown) date) unknown) (unknown) (no (unknown) (unknown) duloxetine 30 mg (units (unknown) date) capsule,delayed 30 unknown) mg PO DAILY 04/18/21 05/28/21 (unknown) (no (unknown) (unknown) duloxetine 30 mg (units (unknown) date) capsule,delayed unknown) release(DR/EC) (unknown) (no (unknown) (unknown) duloxetine 60 mg (units (unknown) date) capsule,delayed 60 unknown) mg PO DAILY 04/18/21 05/28/21 (unknown) (no (unknown) (unknown) duloxetine 60 mg (units (unknown) date) capsule,delayed unknown) release(DR/EC) (unknown) (no (unknown) (unknown) equina or (units (unkn own) date) epidural abscess. unknown) Patient is requiring Dilaudid for pain medication (unknown) (no (unknown) (unknown) equina or spinal (units (unknown) date) cord edema. There unknown) is a mild central canal stenosis and mild (unknown) (no (unknown) (unknown) erections and (units ( unknown) date) feels like he is unknown) not emptying his bladder all the way. He denies (unknown) (no (unknown) (unknown) fell while (units (unk nown) date) golfing on February unknown) . Since then he is had difficult time with (unknown) (no (unknown) (unknown) guarding or (units (un known) date) rebound. unknown) (unknown) (no (unknown) (unknown) had an EEG and (units (unknown) date) other test unknown) specifically for his left leg. He denies any fevers (unknown) (no (unknown) (unknown) he really sees no (units (unknown) date) evidence that unknown) lumbar spine causing urinary retention. (unknown) (no (unknown) (unknown) hours of Tylenol. (units (unknown) date) unknown) (unknown) (no (unknown) (unknown) household (units (unkn own) date) members: children unknown) (unknown) (no (unknown) (unknown) hydroxyzine (units (un known) date) pamoate 25 mg unknown) Capsule (unknown) (no (unknown) (unknown) hydroxyzine (units (un known) date) pamoate 25 mg unknown) capsule 25 mg PO Q6HR PRN Spasms #30 caps 04/20/21 (unknown) (no (unknown) (unknown) in the emergency (units (unknown) date) department. He is unknown) afebrile and not complaining of fever no (unknown) (no (unknown) (unknown) intact (units (unkno wn) date) unknown) (unknown) (no (unknown) (unknown) is 155. MRI does (units (unknown) date) show disc bulge at unknown) L4-L5 region but no evidence of cauda (unknown) (no (unknown) (unknown) is quite out of (units (unknown) date) control. Last unknown) night he needed pain medication and alcohol in (unknown) (no (unknown) (unknown) leukocytosis. (units ( unknown) date) There is no unknown) evidence of electrolyte abnormality or DKA. Glucose (unknown) (no (unknown) (unknown) lisinopril 40 mg (units (unknown) date) tablet 40 mg PO unknown) DAILY 04/18/21 05/28/21 (unknown) (no (unknown) (unknown) lisinopril 40 mg (units (unknown) date) tablet unknown) (unknown) (no (unknown) (unknown) membranes (units (unkn own) date) unknown) (unknown) (no (unknown) (unknown) mg-metformin (units (u nknown) date) 1,000 mg tablet unknown) (unknown) (no (unknown) (unknown) not related. You (units (unknown) date) may have your unknown) catheter removed in 3-7 days by primary care (unknown) (no (unknown) (unknown) off the gurney. (units (unknown) date) Decreased unknown) sensation in the left leg starting just inferior to (unknown) (no (unknown) (unknown) or any new, (units (un known) date) worsening or unknown) concerning symptoms (unknown) (no (unknown) (unknown) order to go to (units (unknown) date) sleep unknown) (unknown) (no (unknown) (unknown) persistent (units (unk nown) date) urinary retention unknown) severe back pain. He agrees that this is likely 2 (unknown) (no (unknown) (unknown) perspective. (units (u nknown) date) unknown) (unknown) (no (unknown) (unknown) provider. Please (units (unknown) date) be sure that you unknown) urinate after it has been removed. He will (unknown) (no (unknown) (unknown) release (units (unkno wn) date) unknown) (unknown) (no (unknown) (unknown) reviewed MRI (units (un known) date) himself reports unknown) that there is a disc but it is unlikely causing his (unknown) (no (unknown) (unknown) sitagliptin (units (un known) date) phosphate 50 50 - unknown) 1,000 tab PO BID 04/18/21 05/28/21 (unknown) (no (unknown) (unknown) stool softener (units (unknown) date) such as Colace, unknown) Dulcolax, MiraLAX or prune juice, to help avoid (unknown) (no (unknown) (unknown) the knee. (units (unkn own) date) unknown) (unknown) (no (unknown) (unknown) today with (units (unk nown) date) worsening back unknown) pain difficulty urinating difficulty with erections (unknown) (no (unknown) (unknown) topiramate 25 mg (units (unknown) date) tablet 50 mg PO unknown) BID 04/18/21 05/28/21 (unknown) (no (unknown) (unknown) topiramate 25 mg (units (unknown) date) tablet unknown) (unknown) (no (unknown) (unknown) unrelated (units (unkn own) date) problems. Does unknown) suggest if needed could MR that thoracic spine however (unknown) (no (unknown) (unknown) urinary (units (unkno wn) date) retention. No need unknown) for emergent surgery or intervention from a spine (unknown) (no (unknown) (unknown) will need to be (units (unknown) date) through your unknown) provider. (unknown) (no (unknown) (unknown) with worsening (units (unknown) date) back pain along unknown) with difficulty urination concern for cauda (unknown) (no (unknown) (unknown) work he has done (units (unknown) date) lidocaine patches unknown) and everything he normally does but his pain (unknown) (no (unknown) (unknown) young. (units (unkno wn) date) unknown) Result panel 134 (unknown) (no (unknown) (unknown) (no value) (units (unk nown) date) unknown) (unknown) (no (unknown) (unknown) (Janumet) (units (unkn own) date) unknown) (unknown) (no (unknown) (unknown) TRAMADOL DOES (units (unknown) date) NOT CONTAIN unknown) TYLENOL (unknown) (no (unknown) (unknown) *Continue to take (units (unknown) date) medications as unknown) directed (unknown) (no (unknown) (unknown) *Follow up with (units (unknown) date) your primary care unknown) provider in 2-3 days or call [phone] (unknown) (no (unknown) (unknown) *Return to ER if (units (unknown) date) you should have unknown) worsening pain worsening weakness loss of stool (unknown) (no (unknown) (unknown) *What to do: It (units (unknown) date) is thought that unknown) you herniated disc and urinary retention are (unknown) (no (unknown) (unknown) *You have been (units (unknown) date) diagnosed with unknown) herniated disc L4-L5, urinary retention (unknown) (no (unknown) (unknown) 03/04/22 03/04/22 (units (unknown) date) Range/Units unknown) (unknown) (no (unknown) (unknown) 03/04/22 10:54 (units (unknown) date) unknown) (unknown) (no (unknown) (unknown) 03/04/22 11:16 (units (unknown) date) unknown) (unknown) (no (unknown) (unknown) 03/04/22 (units (unkno wn) date) unknown) (unknown) (no (unknown) (unknown) 1 tab PO Q6H PRN (units (unknown) date) (Reason: pain) unknown) Qty: 10 0RF (unknown) (no (unknown) (unknown) 1. You have been (units (unknown) date) prescribed unknown) narcotic medications, it does have (unknown) (no (unknown) (unknown) 100 mg PO DAILY (units (unknown) date) unknown) (unknown) (no (unknown) (unknown) 10:28 03/04/22 (units (unknown) date) unknown) (unknown) (no (unknown) (unknown) 10:40 03/04/22 (units (unknown) date) unknown) (unknown) (no (unknown) (unknown) 10:40 (units (unkno wn) date) unknown) (unknown) (no (unknown) (unknown) 11:00 03/04/22 (units (unknown) date) unknown) (unknown) (no (unknown) (unknown) 11:16 11:16 (units (un known) date) unknown) (unknown) (no (unknown) (unknown) 11:30 03/04/22 (units (unknown) date) unknown) (unknown) (no (unknown) (unknown) 11:30 (units (unkno wn) date) unknown) (unknown) (no (unknown) (unknown) 13:05 03/04/22 (units (unknown) date) unknown) (unknown) (no (unknown) (unknown) 13:06 03/04/22 (units (unknown) date) unknown) (unknown) (no (unknown) (unknown) 13:06 (units (unkno wn) date) unknown) (unknown) (no (unknown) (unknown) 13:30 03/04/22 (units (unknown) date) unknown) (unknown) (no (unknown) (unknown) 1414 Dr. Parsons, (units (unknown) date) [facility] [place] [facility]) patient's symptoms test results has (unknown) (no (unknown) (unknown) 14:00 (units (unkno wn) date) unknown) (unknown) (no (unknown) (unknown) 1645-Dr. Kaye (units (unknown) date) spine surgery at unknown) [facility] has reviewed MRI concern for (unknown) (no (unknown) (unknown) 2. Please (units (unkn own) date) understand that we unknown) cannot provide further refills of narcotics, (unknown) (no (unknown) (unknown) 20 mg PO DAILY (units (unknown) date) unknown) (unknown) (no (unknown) (unknown) 25 mg PO Q6HR PRN (units (unknown) date) (Reason: Spasms) unknown) Qty: 30 0RF (unknown) (no (unknown) (unknown) 3. While on these (units (unknown) date) medications you unknown) cannot drive or operate heavy machinery. (unknown) (no (unknown) (unknown) 30 mg PO DAILY (units (unknown) date) unknown) (unknown) (no (unknown) (unknown) 4. You cannot (units ( unknown) date) sign legal unknown) documents or perform any duties such as this. (unknown) (no (unknown) (unknown) 40 mg PO DAILY (units (unknown) date) Qty: 10 0RF unknown) (unknown) (no (unknown) (unknown) 40 mg PO DAILY (units (unknown) date) unknown) (unknown) (no (unknown) (unknown) [id number] (units (unkno wn) date) unknown) (unknown) (no (unknown) (unknown) 5 mg PO TID PRN (units (unknown) date) (Reason: muscle unknown) spasm) Qty: 10 0RF (unknown) (no (unknown) (unknown) 5. As long as (units ( unknown) date) you're taking unknown) opiate pain medications he should also be taking a (unknown) (no (unknown) (unknown) 50 - 1,000 tab PO (units (unknown) date) BID unknown) (unknown) (no (unknown) (unknown) 50 mg PO BID (units (u nknown) date) unknown) (unknown) (no (unknown) (unknown) 60 mg PO DAILY (units (unknown) date) unknown) (unknown) (no (unknown) (unknown) ABDOMEN: Soft, (units (unknown) date) nontender. unknown) Normoactive bowel sounds all 4 quadrants. No (unknown) (no (unknown) (unknown) ALT 58 H (<50) (units (unknown) date) IU/L unknown) (unknown) (no (unknown) (unknown) AST 39 (17-59) (units (unknown) date) IU/L unknown) (unknown) (no (unknown) (unknown) Activity (units (unkno wn) date) Restrictions/Addit unknown) ional Instructions: (unknown) (no (unknown) (unknown) Age/Sex: 47 / M (units (unknown) date) unknown) (unknown) (no (unknown) (unknown) Albumin 4.7 (units (un known) date) (3.5-5.0) g/dL unknown) (unknown) (no (unknown) (unknown) Albumin/Globulin (units (unknown) date) Ratio 1.5 unknown) (1.0-2.8) (unknown) (no (unknown) (unknown) Alkaline (units (unkno wn) date) Phosphatase 88 unknown) (38-126) U/L (unknown) (no (unknown) (unknown) Allergies (units (unkn own) date) unknown) (unknown) (no (unknown) (unknown) Allergy/AdvReac (units (unknown) date) Type Severity unknown) Reaction Status Date / Time (unknown) (no (unknown) (unknown) Arthritis (units (unkn own) date) unknown) (unknown) (no (unknown) (unknown) BACK: Tender (units (u nknown) date) midline L1-L2 area unknown) no step-off (unknown) (no (unknown) (unknown) BUN 18 (9-20) (units ( unknown) date) mg/dL unknown) (unknown) (no (unknown) (unknown) BUN/Creatinine (units (unknown) date) Ratio 21.2 (6-22) unknown) (unknown) (no (unknown) (unknown) Baso # (Auto) 0 (units (unknown) date) (0-100) /uL unknown) (unknown) (no (unknown) (unknown) Baso % (Auto) 0.4 (units (unknown) date) (0-2) % unknown) (unknown) (no (unknown) (unknown) Bedside Urine (units ( unknown) date) Bilirubin - unknown) Negative (unknown) (no (unknown) (unknown) Bedside Urine (units ( unknown) date) Glucose Negative unknown) (unknown) (no (unknown) (unknown) Bedside Urine (units ( unknown) date) Ketone - Negative unknown) (unknown) (no (unknown) (unknown) Bedside Urine (units ( unknown) date) Leukocytes - unknown) Negative (unknown) (no (unknown) (unknown) Bedside Urine (units ( unknown) date) Nitrite - Negative unknown) (unknown) (no (unknown) (unknown) Bedside Urine (units ( unknown) date) Occult Blood - unknown) Negative (unknown) (no (unknown) (unknown) Bedside Urine (units ( unknown) date) Protein - Negative unknown) (unknown) (no (unknown) (unknown) Bedside Urine (units ( unknown) date) Urobilinogen - unknown) Negative (unknown) (no (unknown) (unknown) Bedside Urine pH (units (unknown) date) 6.0 unknown) (unknown) (no (unknown) (unknown) Blood Pressure (units (unknown) date) 125/70 unknown) (unknown) (no (unknown) (unknown) Blood Pressure (units (unknown) date) 132/86 unknown) (unknown) (no (unknown) (unknown) Blood Pressure (units (unknown) date) 137/89 03/04/22 unknown) 10:28 (unknown) (no (unknown) (unknown) Blood Pressure (units (unknown) date) 137/89 138/86 unknown) (unknown) (no (unknown) (unknown) Blood Pressure (units (unknown) date) unknown) (unknown) (no (unknown) (unknown) CARDIOVASCULAR: (units (unknown) date) Regular rate and unknown) rhythm without murmurs, rubs or gallops. (unknown) (no (unknown) (unknown) CBC Auto Diff (units ( unknown) date) [Complete Blood unknown) Count AUTO DIFF] Stat (unknown) (no (unknown) (unknown) CMP (units (unkno wn) date) [Comprehensive unknown) Metabolic Panel] Stat (unknown) (no (unknown) (unknown) CONTROLLED (units (unk nown) date) SUBSTANCE unknown) DISCHARGE (Narcotoic/benzodi azepine/Flexeril/P henergan) (unknown) (no (unknown) (unknown) COVID () (units (unknown) date) unknown) (unknown) (no (unknown) (unknown) Calcium 9.1 (units (un known) date) (8.4-10.2) mg/dL unknown) (unknown) (no (unknown) (unknown) Carbon Dioxide 28 (units (unknown) date) (22-32) mmol/L unknown) (unknown) (no (unknown) (unknown) Chief Complaint: (units (unknown) date) Neuro unknown) Symptoms/Deficit (unknown) (no (unknown) (unknown) Chloride 99 (units (un known) date) (98-107) mmol/L unknown) (unknown) (no (unknown) (unknown) Clinical (units (o wn) date) Impression: unknown) (unknown) (no (unknown) (unknown) Course (units (unkno wn) date) unknown) (unknown) (no (unknown) (unknown) Creatinine 0.85 (units (unknown) date) (0.66-1.25) mg/dL unknown) (unknown) (no (unknown) (unknown) Cyclobenzaprine 5 (units (unknown) date) mg every 8 hours unknown) if needed for muscle spasm (unknown) (no (unknown) (unknown) : 1975 (units (unknown) date) Acct:[id number] unknown) (unknown) (no (unknown) (unknown) Date of Service: (units (unknown) date) 03/04/22 unknown) (unknown) (no (unknown) (unknown) 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 unknown) (unknown) (no (unknown) (unknown) Departure (units (unkn own) date) unknown) (unknown) (no (unknown) (unknown) Depression (units (unk nown) date) unknown) (unknown) (no (unknown) (unknown) Diabetes (units (unkno wn) date) unknown) (unknown) (no (unknown) (unknown) Disc, DI for (units (u nknown) date) Urinary Retention unknown) in Men (unknown) (no (unknown) (unknown) Discharge Plan (units (unknown) date) unknown) (unknown) (no (unknown) (unknown) Discontinued (units (u nknown) date) Medications unknown) (unknown) (no (unknown) (unknown) Documented By: KB (units (unknown) date) unknown) (unknown) (no (unknown) (unknown) Documented By: KM (units (unknown) date) unknown) (unknown) (no (unknown) (unknown) ED Orders (units (unkn own) date) unknown) (unknown) (no (unknown) (unknown) ER Physician: (units ( unknown) date) Wendy Davis unknown) D.O. (unknown) (no (unknown) (unknown) EXTREMITIES: (units (u nknown) date) Normal range of unknown) motion, no clubbing or edema. Neurovascularly (unknown) (no (unknown) (unknown) Emergency Report (units (unknown) date) unknown) (unknown) (no (unknown) (unknown) Eos # (Auto) 100 (units (unknown) date) (0-450) /uL unknown) (unknown) (no (unknown) (unknown) Eos % (Auto) 1.1 (units (unknown) date) L (2-4) % unknown) (unknown) (no (unknown) (unknown) Esterase (units (unkno wn) date) unknown) (unknown) (no (unknown) (unknown) Estimated GFR > (units (unknown) date) 60 (>60) mL/min unknown) (unknown) (no (unknown) (unknown) Exam (units (unkno wn) date) unknown) (unknown) (no (unknown) (unknown) Fracture (units (unkno wn) date) unknown) (unknown) (no (unknown) (unknown) GENERAL: Alert (units (unknown) date) 47-year-old male unknown) and in no acute distress. (unknown) (no (unknown) (unknown) General (units (unkno wn) date) unknown) (unknown) (no (unknown) (unknown) Globulin 3.2 (units (u nknown) date) (1.7-4.1) g/dL unknown) (unknown) (no (unknown) (unknown) Glucose 155 H (units ( unknown) date) (70-100) mg/dL unknown) (unknown) (no (unknown) (unknown) HEENT: Head (units (un known) date) atraumatic,EOMI, unknown) pupils reactive, face symmetric, moist mucous (unknown) (no (unknown) (unknown) HPI - Neuro (units (un known) date) Symptoms/Deficit unknown) (unknown) (no (unknown) (unknown) HPI Narrative: (units (unknown) date) unknown) (unknown) (no (unknown) (unknown) Hct 43.1 (41-53) (units (unknown) date) % unknown) (unknown) (no (unknown) (unknown) Headache, (units (unkn own) date) migraine unknown) (unknown) (no (unknown) (unknown) Hematologic/Lymph (units (unknown) date) atic unknown) (unknown) (no (unknown) (unknown) Hepatic steatosis (units (unknown) date) unknown) (unknown) (no (unknown) (unknown) Herniated disc, (units (unknown) date) Acute urinary unknown) retention (unknown) (no (unknown) (unknown) Hgb 15.3 (units (unkno wn) date) (13.5-17.5) g/dL unknown) (unknown) (no (unknown) (unknown) History of (units (unk nown) date) Present Illness unknown) (unknown) (no (unknown) (unknown) History of hernia (units (unknown) date) repair unknown) (unknown) (no (unknown) (unknown) History of (units (unk nown) date) vasectomy unknown) (unknown) (no (unknown) (unknown) Home Medications (units (unknown) date) unknown) (unknown) (no (unknown) (unknown) Hydromorphone HCl (units (unknown) date) (Hydromorphone 0.5 unknown) Mg Inj) 0.5 mg IV NOW ONE (unknown) (no (unknown) (unknown) Hydromorphone HCl (units (unknown) date) (Hydromorphone 1 unknown) Mg Inj) 1 mg IV NOW ONE (unknown) (no (unknown) (unknown) Hyperlipidemia (units (unknown) date) unknown) (unknown) (no (unknown) (unknown) Hypertension (units (u nknown) date) unknown) (unknown) (no (unknown) (unknown) Initial Vital (units ( unknown) date) Signs unknown) (unknown) (no (unknown) (unknown) Initial Vital (units ( unknown) date) Signs: unknown) (unknown) (no (unknown) (unknown) Instructions: How (units (unknown) date) to Care for Your unknown) Allen Catheter -- Male, DI for Herniated (unknown) (no (unknown) (unknown) [facility] (units (unknown) date) [address] [place] [address] unknown) [place] [address] (unknown) (no (unknown) (unknown) Janumet 50-1,000 (units (unknown) date) mg tablet unknown) (unknown) (no (unknown) (unknown) Lab Data (units (unkno wn) date) unknown) (unknown) (no (unknown) (unknown) Lab Results (units (un known) date) unknown) (unknown) (no (unknown) (unknown) Labs: (units (unkno wn) date) unknown) (unknown) (no (unknown) (unknown) Last Admin: (units (un known) date) 03/04/22 11:08 unknown) Dose: 1 mg (unknown) (no (unknown) (unknown) Last Admin: (units (un known) date) 03/04/22 12:16 unknown) Dose: 1 mg (unknown) (no (unknown) (unknown) Last Admin: (units (un known) date) 03/04/22 13:21 unknown) Dose: 1 mg (unknown) (no (unknown) (unknown) Last Admin: (units (un known) date) 03/04/22 15:15 unknown) Dose: 0.5 mg (unknown) (no (unknown) (unknown) Last Admin: (units (un known) date) 03/04/22 15:15 unknown) Dose: 6 ml (unknown) (no (unknown) (unknown) Lidocaine HCl (units ( unknown) date) (Lidocaine 2% unknown) (Glydo) 6 Ml Gel) 6 ml TOP NOW ONE (unknown) (no (unknown) (unknown) Lorazepam (units (unkn own) date) (Lorazepam 2 Mg/Ml unknown) Inj) 1 mg IV NOW ONE (unknown) (no (unknown) (unknown) Lymph # (Auto) (units (unknown) date) 1600 (3103-9410) unknown) /uL (unknown) (no (unknown) (unknown) Lymph % (Auto) (units (unknown) date) 24.0 L (25-40) % unknown) (unknown) (no (unknown) (unknown) MCH 28.7 (26-34) (units (unknown) date) PG unknown) (unknown) (no (unknown) (unknown) MCHC 35.4 (30-36) (units (unknown) date) % unknown) (unknown) (no (unknown) (unknown) MCV 81.0 (80-100) (units (unknown) date) fL unknown) (unknown) (no (unknown) (unknown) MDM - Neuro (units (un known) date) Symptoms/Deficit unknown) (unknown) (no (unknown) (unknown) MDM Narrative (units ( unknown) date) unknown) (unknown) (no (unknown) (unknown) MR lumbar spine (units (unknown) date) wo con Stat unknown) (unknown) (no (unknown) (unknown) Medical History (units (unknown) date) (Reviewed 05/28/21 unknown) @ 14:56 by Delbert Rudolph MD) (unknown) (no (unknown) (unknown) Medical decision (units (unknown) date) making narrative: unknown) (unknown) (no (unknown) (unknown) Medication (units (unk nown) date) Instructions unknown) Recorded Confirmed (unknown) (no (unknown) (unknown) Medication (units (unk nown) date) Instructions unknown) Recorded (unknown) (no (unknown) (unknown) Mode of arrival: (units (unknown) date) Wheelchair unknown) (unknown) (no (unknown) (unknown) [place] # (Auto) 500 (units (unknown) date) (0-900) /uL unknown) (unknown) (no (unknown) (unknown) [place] % (Auto) 7.8 (units (unknown) date) (3-14) % unknown) (unknown) (no (unknown) (unknown) NEUROLOGICAL: (units ( unknown) date) Alert and oriented unknown) x4. Left leg is weak but he is able to lift up (unknown) (no (unknown) (unknown) Neut # (Auto) (units ( unknown) date) 4500 (8620-2068) unknown) /uL (unknown) (no (unknown) (unknown) Neut % (Auto) (units ( unknown) date) 66.7 (50-75) % unknown) (unknown) (no (unknown) (unknown) New (units (unkno wn) date) unknown) (unknown) (no (unknown) (unknown) No Action (units (unkn own) date) unknown) (unknown) (no (unknown) (unknown) Rawlings 1 tablet (units (unknown) date) every 6 hours if unknown) needed for severe pain (unknown) (no (unknown) (unknown) On (units (unkno wn) date) Anticoagulants: No unknown) (unknown) (no (unknown) (unknown) Ordered: (units (unkno wn) date) unknown) (unknown) (no (unknown) (unknown) Orders (units (unkno wn) date) unknown) (unknown) (no (unknown) (unknown) Oxygen Delivery (units (unknown) date) Method 03/04/22 unknown) 10:28 (unknown) (no (unknown) (unknown) Oxygen Delivery (units (unknown) date) Method Room Air unknown) (unknown) (no (unknown) (unknown) Oxygen Delivery (units (unknown) date) Method unknown) (unknown) (no (unknown) (unknown) Patient (units (unkno wn) date) Disposition: Home unknown) (unknown) (no (unknown) (unknown) Patient History (units (unknown) date) unknown) (unknown) (no (unknown) (unknown) Patient is a (units (u nknown) date) 47-year-old male unknown) history of diabetes chronic back pain presenting (unknown) (no (unknown) (unknown) Patient is a (units (un known) date) 47-year-old male unknown) with chronic back problems and diabetes presenting (unknown) (no (unknown) (unknown) Patient is still (units (unknown) date) having difficulty unknown) emptying his bladder. (unknown) (no (unknown) (unknown) Patient reports (units (unknown) date) that he actually unknown) does take Flomax but that his prostate has not (unknown) (no (unknown) (unknown) Patient: (units (unkno wn) date) Mehran Abraham unknown) MR#: [id number] (unknown) (no (unknown) (unknown) Penicillins (units (un known) date) Allergy Mild Rash unknown) Verified 03/04/22 10:33 (unknown) (no (unknown) (unknown) Plt Count 205 (units ( unknown) date) (150-400) X103/uL unknown) (unknown) (no (unknown) (unknown) Potassium 3.1 L (units (unknown) date) (3.4-5.1) mmol/L unknown) (unknown) (no (unknown) (unknown) Prednisone 40 mg (units (unknown) date) once a day for 5 unknown) days (unknown) (no (unknown) (unknown) Prescriptions: (units (unknown) date) unknown) (unknown) (no (unknown) (unknown) Previous Rx's (units ( unknown) date) unknown) (unknown) (no (unknown) (unknown) Pulse Oximetry 94 (units (unknown) date) 92 unknown) (unknown) (no (unknown) (unknown) Pulse Oximetry 94 (units (unknown) date) 93 unknown) (unknown) (no (unknown) (unknown) Pulse Oximetry 94 (units (unknown) date) 94 unknown) (unknown) (no (unknown) (unknown) Pulse Oximetry 97 (units (unknown) date) 03/04/22 10:28 unknown) (unknown) (no (unknown) (unknown) Pulse Oximetry 97 (units (unknown) date) 96 unknown) (unknown) (no (unknown) (unknown) Pulse Rate 70 73 (units (unknown) date) unknown) (unknown) (no (unknown) (unknown) Pulse Rate 74 69 (units (unknown) date) unknown) (unknown) (no (unknown) (unknown) Pulse Rate 76 73 (units (unknown) date) unknown) (unknown) (no (unknown) (unknown) Pulse Rate 87 (units ( unknown) date) 03/04/22 10:28 unknown) (unknown) (no (unknown) (unknown) Pulse Rate 87 80 (units (unknown) date) unknown) (unknown) (no (unknown) (unknown) RBC 5.32 (units (unkno wn) date) (4.5-5.9) X106/uL unknown) (unknown) (no (unknown) (unknown) RDW 14.8 (units (unkno wn) date) (11.6-14.8) % unknown) (unknown) (no (unknown) (unknown) RESPIRATORY: (units (u nknown) date) Breath sounds unknown) equal bilaterally, no wheezes rales or rhonchi. (unknown) (no (unknown) (unknown) Referrals: (units (unk nown) date) unknown) (unknown) (no (unknown) (unknown) Related Data (units (u nknown) date) unknown) (unknown) (no (unknown) (unknown) Respiratory Rate (units (unknown) date) 17 unknown) (unknown) (no (unknown) (unknown) Respiratory Rate (units (unknown) date) 20 03/04/22 10:28 unknown) (unknown) (no (unknown) (unknown) Respiratory Rate (units (unknown) date) 20 unknown) (unknown) (no (unknown) (unknown) Respiratory Rate (units (unknown) date) unknown) (unknown) (no (unknown) (unknown) Result diagrams: (units (unknown) date) unknown) (unknown) (no (unknown) (unknown) Review of Systems (units (unknown) date) unknown) (unknown) (no (unknown) (unknown) Rx Instructions: (units (unknown) date) unknown) (unknown) (no (unknown) (unknown) SKIN: Warm, dry, (units (unknown) date) no laceration, no unknown) petechiae, no rashes or lesions. (unknown) (no (unknown) (unknown) Signed By: (units (unk nown) date) unknown) (unknown) (no (unknown) (unknown) Smoking Status: (units (unknown) date) Never smoker unknown) (unknown) (no (unknown) (unknown) Social History (units (unknown) date) (Reviewed 05/17/21 unknown) @ 13:15 by Mckenna Meza DO) (unknown) (no (unknown) (unknown) Sodium 138 (units (unk nown) date) (137-145) mmol/L unknown) (unknown) (no (unknown) (unknown) Source: patient (units (unknown) date) unknown) (unknown) (no (unknown) (unknown) Stand Alone (units (un known) date) Forms: Patient unknown) Portal/API (unknown) (no (unknown) (unknown) Stated Complaint: (units (unknown) date) sent by [facility] unknown) Hosp. slipped t-8 thinks slipped dis (unknown) (no (unknown) (unknown) Stop: 03/04/22 (units (unknown) date) 11:01 unknown) (unknown) (no (unknown) (unknown) Stop: 03/04/22 (units (unknown) date) 12:13 unknown) (unknown) (no (unknown) (unknown) Stop: 03/04/22 (units (unknown) date) 13:19 unknown) (unknown) (no (unknown) (unknown) Stop: 03/04/22 (units (unknown) date) 15:12 unknown) (unknown) (no (unknown) (unknown) Stop: 03/04/22 (units (unknown) date) 15:13 unknown) (unknown) (no (unknown) (unknown) Substance Use (units ( unknown) date) Type: does not use unknown) (unknown) (no (unknown) (unknown) Surgical History (units (unknown) date) (Reviewed 05/28/21 unknown) @ 14:56 by Delbert Rudolph MD) (unknown) (no (unknown) (unknown) Take 2 capsule by (units (unknown) date) oral route 2 times unknown) every day in the morning and evening (unknown) (no (unknown) (unknown) Temperature 97.8 (units (unknown) date) F 03/04/22 10:28 unknown) (unknown) (no (unknown) (unknown) Temperature 97.8 (units (unknown) date) F unknown) (unknown) (no (unknown) (unknown) Temperature (units (un known) date) unknown) (unknown) (no (unknown) (unknown) Time Seen by (units (u nknown) date) Provider: 03/04/22 unknown) 10:48 (unknown) (no (unknown) (unknown) Total Bilirubin (units (unknown) date) 0.8 (0.2-1.3) unknown) mg/dL (unknown) (no (unknown) (unknown) Total Protein 7.9 (units (unknown) date) (6.3-8.2) g/dL unknown) (unknown) (no (unknown) (unknown) Traumatic (units (unkn own) date) complete tear of unknown) right rotator cuff (unknown) (no (unknown) (unknown) Urine Dip (units (unkn own) date) unknown) (unknown) (no (unknown) (unknown) Urine Specific (units (unknown) date) [employer] 1.025 unknown) (unknown) (no (unknown) (unknown) Poncho Anguiano, (units (unknown) date) DO [Primary Care unknown) Provider] (unknown) (no (unknown) (unknown) Vital Signs - 8 (units (unknown) date) hr unknown) (unknown) (no (unknown) (unknown) Vital Signs (units (un known) date) unknown) (unknown) (no (unknown) (unknown) Vital signs: (units (u nknown) date) unknown) (unknown) (no (unknown) (unknown) WBC 6.7 (units (unkno wn) date) (4.5-11.0) X103/uL unknown) (unknown) (no (unknown) (unknown) With Meals (units (unk nown) date) unknown) (unknown) (no (unknown) (unknown) [Embedded Image (units (unknown) date) Not Available] unknown) (unknown) (no (unknown) (unknown) ablation. A month (units (unknown) date) ago he was seen at unknown) [facility] for further neurologic testing he (unknown) (no (unknown) (unknown) acetaminophen/Tyl (units (unknown) date) enol/paracetamol unknown) in it, DO NOT TAKE MORE THAN 4,00mg in 24 (unknown) (no (unknown) (unknown) acute finding. So (units (unknown) date) disc L4-L5 is new unknown) probably from injury on the but (unknown) (no (unknown) (unknown) alcohol intake (units (unknown) date) frequency: unknown) holidays/special occasions only (unknown) (no (unknown) (unknown) along left leg (units (unknown) date) weakness. he unknown) reports that he had an injury where he slipped and (unknown) (no (unknown) (unknown) also need to (units (u nknown) date) follow-up with unknown) orthopedics spine in regards to your back. (unknown) (no (unknown) (unknown) any urinary or (units (unknown) date) stool unknown) incontinence. He does have some left leg weakness is at (unknown) (no (unknown) (unknown) atorvastatin 20 (units (unknown) date) mg tablet 20 mg PO unknown) DAILY 04/18/21 05/28/21 (unknown) (no (unknown) (unknown) atorvastatin 20 (units (unknown) date) mg tablet unknown) (unknown) (no (unknown) (unknown) baseline but it (units (unknown) date) seems to be unknown) getting a little bit worse. He is had multiple back (unknown) (no (unknown) (unknown) been checked in a (units (unknown) date) while. Possible unknown) BPH problem although patient is relatively yo (unknown) (no (unknown) (unknown) benzodiazepines (units (unknown) date) or controlled unknown) substances through the ED and her pain management (unknown) (no (unknown) (unknown) bilateral neural (units (unknown) date) foraminal unknown) narrowing. Previous MRI from 11/23/2021, shows no (unknown) (no (unknown) (unknown) celecoxib 100 mg (units (unknown) date) capsule 100 mg PO unknown) DAILY 04/18/21 05/28/21 (unknown) (no (unknown) (unknown) celecoxib 100 mg (units (unknown) date) capsule unknown) (unknown) (no (unknown) (unknown) chills. No IVDA. (units (unknown) date) He gets back pain unknown) regularly he has medications that usually (unknown) (no (unknown) (unknown) concern for an (units (unknown) date) infection. Blood unknown) work is overall reassuring without (unknown) (no (unknown) (unknown) constipation. (units ( unknown) date) unknown) (unknown) (no (unknown) (unknown) cyclobenzaprine 5 (units (unknown) date) mg tablet 5 mg PO unknown) TID PRN muscle spasm #10 03/04/22 (unknown) (no (unknown) (unknown) cyclobenzaprine 5 (units (unknown) date) mg tablet unknown) (unknown) (no (unknown) (unknown) difficult to say. (units (unknown) date) unknown) (unknown) (no (unknown) (unknown) duloxetine 30 mg (units (unknown) date) capsule,delayed 30 unknown) mg PO DAILY 04/18/21 05/28/21 (unknown) (no (unknown) (unknown) duloxetine 30 mg (units (unknown) date) capsule,delayed unknown) release(DR/EC) (unknown) (no (unknown) (unknown) duloxetine 60 mg (units (unknown) date) capsule,delayed 60 unknown) mg PO DAILY 04/18/21 05/28/21 (unknown) (no (unknown) (unknown) duloxetine 60 mg (units (unknown) date) capsule,delayed unknown) release(DR/EC) (unknown) (no (unknown) (unknown) equina or (units (unkn own) date) epidural abscess. unknown) Patient is requiring Dilaudid for pain medication (unknown) (no (unknown) (unknown) equina or spinal (units (unknown) date) cord edema. There unknown) is a mild central canal stenosis and mild (unknown) (no (unknown) (unknown) erections and (units ( unknown) date) feels like he is unknown) not emptying his bladder all the way. He denies (unknown) (no (unknown) (unknown) fell while (units (unk nown) date) golfing on February unknown) . Since then he is had difficult time with (unknown) (no (unknown) (unknown) guarding or (units (un known) date) rebound. unknown) (unknown) (no (unknown) (unknown) had an EEG and (units (unknown) date) other test unknown) specifically for his left leg. He denies any fevers (unknown) (no (unknown) (unknown) he really sees no (units (unknown) date) evidence that unknown) lumbar spine causing urinary retention. (unknown) (no (unknown) (unknown) hours of Tylenol. (units (unknown) date) unknown) (unknown) (no (unknown) (unknown) household (units (unkn own) date) members: children unknown) (unknown) (no (unknown) (unknown) hydrocodone 5 (units ( unknown) date) mg-acetaminophen unknown) 325 1 tab PO Q6H PRN pain #10 tabs 03/04/22 (unknown) (no (unknown) (unknown) hydrocodone-aceta (units (unknown) date) minophen 5-325 mg unknown) tablet (unknown) (no (unknown) (unknown) hydroxyzine (units (un known) date) pamoate 25 mg unknown) Capsule (unknown) (no (unknown) (unknown) hydroxyzine (units (un known) date) pamoate 25 mg unknown) capsule 25 mg PO Q6HR PRN Spasms #30 caps 04/20/21 (unknown) (no (unknown) (unknown) in the emergency (units (unknown) date) department. He is unknown) afebrile and not complaining of fever no (unknown) (no (unknown) (unknown) intact (units (unkno wn) date) unknown) (unknown) (no (unknown) (unknown) is 155. MRI does (units (unknown) date) show disc bulge at unknown) L4-L5 region but no evidence of cauda (unknown) (no (unknown) (unknown) is quite out of (units (unknown) date) control. Last unknown) night he needed pain medication and alcohol in (unknown) (no (unknown) (unknown) leukocytosis. (units ( unknown) date) There is no unknown) evidence of electrolyte abnormality or DKA. Glucose (unknown) (no (unknown) (unknown) lisinopril 40 mg (units (unknown) date) tablet 40 mg PO unknown) DAILY 04/18/21 05/28/21 (unknown) (no (unknown) (unknown) lisinopril 40 mg (units (unknown) date) tablet unknown) (unknown) (no (unknown) (unknown) membranes (units (unkn own) date) unknown) (unknown) (no (unknown) (unknown) mg tablet (units (unkn own) date) unknown) (unknown) (no (unknown) (unknown) mg-metformin (units (u nknown) date) 1,000 mg tablet unknown) (unknown) (no (unknown) (unknown) not related. You (units (unknown) date) may have your unknown) catheter removed in 3-7 days by primary care (unknown) (no (unknown) (unknown) off the gurney. (units (unknown) date) Decreased unknown) sensation in the left leg starting just inferior to (unknown) (no (unknown) (unknown) or any new, (units (un known) date) worsening or unknown) concerning symptoms (unknown) (no (unknown) (unknown) order to go to (units (unknown) date) sleep unknown) (unknown) (no (unknown) (unknown) persistent (units (unk nown) date) urinary retention unknown) severe back pain. He agrees that this is likely 2 (unknown) (no (unknown) (unknown) perspective. (units (u nknown) date) unknown) (unknown) (no (unknown) (unknown) prednisone 20 mg (units (unknown) date) tablet 40 mg PO unknown) DAILY #10 tabs 03/04/22 (unknown) (no (unknown) (unknown) prednisone 20 mg (units (unknown) date) tablet unknown) (unknown) (no (unknown) (unknown) provider. Please (units (unknown) date) be sure that you unknown) urinate after it has been removed. He will (unknown) (no (unknown) (unknown) release (units (unkno wn) date) unknown) (unknown) (no (unknown) (unknown) reviewed MRI (units (un known) date) himself reports unknown) that there is a disc but it is unlikely causing his (unknown) (no (unknown) (unknown) sitagliptin (units (un known) date) phosphate 50 50 - unknown) 1,000 tab PO BID 04/18/21 05/28/21 (unknown) (no (unknown) (unknown) stool softener (units (unknown) date) such as Colace, unknown) Dulcolax, MiraLAX or prune juice, to help avoid (unknown) (no (unknown) (unknown) tabs (units (unkno wn) date) unknown) (unknown) (no (unknown) (unknown) the knee. (units (unkn own) date) unknown) (unknown) (no (unknown) (unknown) today with (units (unk nown) date) worsening back unknown) pain difficulty urinating difficulty with erections (unknown) (no (unknown) (unknown) topiramate 25 mg (units (unknown) date) tablet 50 mg PO unknown) BID 04/18/21 05/28/21 (unknown) (no (unknown) (unknown) topiramate 25 mg (units (unknown) date) tablet unknown) (unknown) (no (unknown) (unknown) mckay. (units (unkno wn) date) unknown) (unknown) (no (unknown) (unknown) unrelated (units (unkn own) date) problems. Does unknown) suggest if needed could MR that thoracic spine however (unknown) (no (unknown) (unknown) urinary (units (unkno wn) date) retention. No need unknown) for emergent surgery or intervention from a spine (unknown) (no (unknown) (unknown) will need to be (units (unknown) date) through your unknown) provider. (unknown) (no (unknown) (unknown) with worsening (units (unknown) date) back pain along unknown) with difficulty urination concern for cauda (unknown) (no (unknown) (unknown) work he has done (units (unknown) date) lidocaine patches unknown) and everything he normally does but his pain Result panel 135 (unknown) (no (unknown) (unknown) (no value) (units (unk nown) date) unknown) (unknown) (no (unknown) (unknown) <Electronically (units (unknown) date) signed by Wendy unknown) Sushil Davis> (unknown) (no (unknown) (unknown) (Jasont) (units (unkn own) date) unknown) (unknown) (no (unknown) (unknown) TRAMADOL DOES (units (unknown) date) NOT CONTAIN unknown) TYLENOL (unknown) (no (unknown) (unknown) *Continue to take (units (unknown) date) medications as unknown) directed (unknown) (no (unknown) (unknown) *Follow up with (units (unknown) date) your primary care unknown) provider in 2-3 days or call [phone] (unknown) (no (unknown) (unknown) *Return to ER if (units (unknown) date) you should have unknown) worsening pain worsening weakness loss of stool (unknown) (no (unknown) (unknown) *What to do: It (units (unknown) date) is thought that unknown) you herniated disc and urinary retention are (unknown) (no (unknown) (unknown) *You have been (units (unknown) date) diagnosed with unknown) herniated disc L4-L5, urinary retention (unknown) (no (unknown) (unknown) 03/04/22 03/04/22 (units (unknown) date) Range/Units unknown) (unknown) (no (unknown) (unknown) 03/04/22 10:54 (units (unknown) date) unknown) (unknown) (no (unknown) (unknown) 03/04/22 11:16 (units (unknown) date) unknown) (unknown) (no (unknown) (unknown) 03/04/22 1953 (units ( unknown) date) unknown) (unknown) (no (unknown) (unknown) 03/04/22 (units (unkno wn) date) unknown) (unknown) (no (unknown) (unknown) 1 tab PO Q6H PRN (units (unknown) date) (Reason: pain) unknown) Qty: 10 0RF (unknown) (no (unknown) (unknown) 1. No marrow (units (u nknown) date) edema.? No acute unknown) compression fracture or spondylolisthesis. (unknown) (no (unknown) (unknown) 1. You have been (units (unknown) date) prescribed unknown) narcotic medications, it does have (unknown) (no (unknown) (unknown) 100 mg PO DAILY (units (unknown) date) unknown) (unknown) (no (unknown) (unknown) 11:16 11:16 (units (un known) date) unknown) (unknown) (no (unknown) (unknown) 13:05 03/04/22 (units (unknown) date) unknown) (unknown) (no (unknown) (unknown) 13:06 03/04/22 (units (unknown) date) unknown) (unknown) (no (unknown) (unknown) 13:06 (units (unkno wn) date) unknown) (unknown) (no (unknown) (unknown) 13:30 03/04/22 (units (unknown) date) unknown) (unknown) (no (unknown) (unknown) 1484 Dr. Parsons, (units (unknown) date) [facility] [place] unknown) patient's symptoms test results has (unknown) (no (unknown) (unknown) 14:00 03/04/22 (units (unknown) date) unknown) (unknown) (no (unknown) (unknown) 1645-Dr. Kaye (units (unknown) date) spine surgery at unknown) [facility] has reviewed MRI concern for (unknown) (no (unknown) (unknown) 17:29 (units (unkno wn) date) unknown) (unknown) (no (unknown) (unknown) 2. Central disc (units (unknown) date) bulge and unknown) bilateral facet arthrosis at L4-5 level with mild (unknown) (no (unknown) (unknown) 2. Please (units (unkn own) date) understand that we unknown) cannot provide further refills of narcotics, (unknown) (no (unknown) (unknown) 20 mg PO DAILY (units (unknown) date) unknown) (unknown) (no (unknown) (unknown) 25 mg PO Q6HR PRN (units (unknown) date) (Reason: Spasms) unknown) Qty: 30 0RF (unknown) (no (unknown) (unknown) 3. No significant (units (unknown) date) disc bulge, canal unknown) stenosis or neural foraminal narrowing is (unknown) (no (unknown) (unknown) 3. While on these (units (unknown) date) medications you unknown) cannot drive or operate heavy machinery. (unknown) (no (unknown) (unknown) 30 mg PO DAILY (units (unknown) date) unknown) (unknown) (no (unknown) (unknown) 4. You cannot (units ( unknown) date) sign legal unknown) documents or perform any duties such as this. (unknown) (no (unknown) (unknown) 40 mg PO DAILY (units (unknown) date) Qty: 10 0RF unknown) (unknown) (no (unknown) (unknown) 40 mg PO DAILY (units (unknown) date) unknown) (unknown) (no (unknown) (unknown) [id number] (units (unkno wn) date) unknown) (unknown) (no (unknown) (unknown) 5 mg PO TID PRN (units (unknown) date) (Reason: muscle unknown) spasm) Qty: 10 0RF (unknown) (no (unknown) (unknown) 5. As long as (units ( unknown) date) you're taking unknown) opiate pain medications he should also be taking a (unknown) (no (unknown) (unknown) 50 - 1,000 tab PO (units (unknown) date) BID unknown) (unknown) (no (unknown) (unknown) 50 mg PO BID (units (u nknown) date) unknown) (unknown) (no (unknown) (unknown) 60 mg PO DAILY (units (unknown) date) unknown) (unknown) (no (unknown) (unknown) : Mehran Abraham R (units (unknown) date) unknown) (unknown) (no (unknown) (unknown) ? (units (unkno wn) date) unknown) (unknown) (no (unknown) (unknown) ABDOMEN: Soft, (units (unknown) date) nontender. unknown) Normoactive bowel sounds all 4 quadrants. No (unknown) (no (unknown) (unknown) ALT 58 H (<50) (units (unknown) date) IU/L unknown) (unknown) (no (unknown) (unknown) AST 39 (17-59) (units (unknown) date) IU/L unknown) (unknown) (no (unknown) (unknown) Accession Number: (units (unknown) date) [id number] ?? unknown) (unknown) (no (unknown) (unknown) Acct:[id number] (units (unknown) date) unknown) (unknown) (no (unknown) (unknown) Activity (units (unkno wn) date) Restrictions/Addit unknown) ional Instructions: (unknown) (no (unknown) (unknown) Age/Sex: 47 / M (units (unknown) date) unknown) (unknown) (no (unknown) (unknown) Albumin 4.7 (units (un known) date) (3.5-5.0) g/dL unknown) (unknown) (no (unknown) (unknown) Albumin/Globulin (units (unknown) date) Ratio 1.5 unknown) (1.0-2.8) (unknown) (no (unknown) (unknown) Alignment and (units ( unknown) date) Curvature:? There unknown) is normal bony alignment.? (unknown) (no (unknown) (unknown) Alkaline (units (unkno wn) date) Phosphatase 88 unknown) (38-126) U/L (unknown) (no (unknown) (unknown) Allergies (units (unkn own) date) unknown) (unknown) (no (unknown) (unknown) Allergy/AdvReac (units (unknown) date) Type Severity unknown) Reaction Status Date / Time (unknown) (no (unknown) (unknown) Arthritis (units (unkn own) date) unknown) (unknown) (no (unknown) (unknown) BACK: Tender (units (u nknown) date) midline L1-L2 area unknown) no step-off (unknown) (no (unknown) (unknown) BUN 18 (9-20) (units ( unknown) date) mg/dL unknown) (unknown) (no (unknown) (unknown) BUN/Creatinine (units (unknown) date) Ratio 21.2 (6-22) unknown) (unknown) (no (unknown) (unknown) Baso # (Auto) 0 (units (unknown) date) (0-100) /uL unknown) (unknown) (no (unknown) (unknown) Baso % (Auto) 0.4 (units (unknown) date) (0-2) % unknown) (unknown) (no (unknown) (unknown) Bedside Urine (units ( unknown) date) Bilirubin - unknown) Negative (unknown) (no (unknown) (unknown) Bedside Urine (units ( unknown) date) Glucose Negative unknown) (unknown) (no (unknown) (unknown) Bedside Urine (units ( unknown) date) Ketone - Negative unknown) (unknown) (no (unknown) (unknown) Bedside Urine (units ( unknown) date) Leukocytes - unknown) Negative (unknown) (no (unknown) (unknown) Bedside Urine (units ( unknown) date) Nitrite - Negative unknown) (unknown) (no (unknown) (unknown) Bedside Urine (units ( unknown) date) Occult Blood - unknown) Negative (unknown) (no (unknown) (unknown) Bedside Urine (units ( unknown) date) Protein - Negative unknown) (unknown) (no (unknown) (unknown) Bedside Urine (units ( unknown) date) Urobilinogen - unknown) Negative (unknown) (no (unknown) (unknown) Bedside Urine pH (units (unknown) date) 6.0 unknown) (unknown) (no (unknown) (unknown) Blood Pressure (units (unknown) date) 125/70 unknown) (unknown) (no (unknown) (unknown) Blood Pressure (units (unknown) date) 137/89 03/04/22 unknown) 10:28 (unknown) (no (unknown) (unknown) Blood Pressure (units (unknown) date) 138/72 unknown) (unknown) (no (unknown) (unknown) Bone Marrow:? (units ( unknown) date) Marrow is of unknown) normal overall signal.? No acute vertebral body (unknown) (no (unknown) (unknown) CARDIOVASCULAR: (units (unknown) date) Regular rate and unknown) rhythm without murmurs, rubs or gallops. (unknown) (no (unknown) (unknown) CBC Auto Diff (units ( unknown) date) [Complete Blood unknown) Count AUTO DIFF] Stat (unknown) (no (unknown) (unknown) CMP (units (unkno wn) date) [Comprehensive unknown) Metabolic Panel] Stat (unknown) (no (unknown) (unknown) COMPARISON:? (units (u nknown) date) [facility], unknown) MR, MR LUMBAR SPINE WO CON, 10/11/2021, 19:26. (unknown) (no (unknown) (unknown) CONTROLLED (units (unk nown) date) SUBSTANCE unknown) DISCHARGE (Narcotoic/benzodi azepine/Flexeril/P henergan) (unknown) (no (unknown) (unknown) COVID (-02/2021) (units (unknown) date) unknown) (unknown) (no (unknown) (unknown) Calcium 9.1 (units (un known) date) (8.4-10.2) mg/dL unknown) (unknown) (no (unknown) (unknown) Carbon Dioxide 28 (units (unknown) date) (22-32) mmol/L unknown) (unknown) (no (unknown) (unknown) Chief Complaint: (units (unknown) date) Neuro unknown) Symptoms/Deficit (unknown) (no (unknown) (unknown) Chloride 99 (units (un known) date) (98-107) mmol/L unknown) (unknown) (no (unknown) (unknown) Clinical (units (unkno wn) date) Impression: unknown) (unknown) (no (unknown) (unknown) Course (units (unkno wn) date) unknown) (unknown) (no (unknown) (unknown) Creatinine 0.85 (units (unknown) date) (0.66-1.25) mg/dL unknown) (unknown) (no (unknown) (unknown) Cyclobenzaprine 5 (units (unknown) date) mg every 8 hours unknown) if needed for muscle spasm (unknown) (no (unknown) (unknown) : 1975 (units (unknown) date) Acct:[id number] unknown) (unknown) (no (unknown) (unknown) : 1975 (units (unknown) date) unknown) (unknown) (no (unknown) (unknown) Date of Service: (units (unknown) date) 03/04/22 unknown) (unknown) (no (unknown) (unknown) 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 unknown) (unknown) (no (unknown) (unknown) Departure (units (unkn own) date) unknown) (unknown) (no (unknown) (unknown) Depression (units (unk nown) date) unknown) (unknown) (no (unknown) (unknown) Diabetes (units (unkno wn) date) unknown) (unknown) (no (unknown) (unknown) Dictated by: Too (units (unknown) date) Aj Rodriguez on unknown) 03/04/2022 at 12:55 ?? (unknown) (no (unknown) (unknown) Disc, DI for (units (u nknown) date) Urinary Retention unknown) in Men (unknown) (no (unknown) (unknown) Discharge Plan (units (unknown) date) unknown) (unknown) (no (unknown) (unknown) Discontinued (units (u nknown) date) Medications unknown) (unknown) (no (unknown) (unknown) Documented By: (units (unknown) date) [facility] unknown) (unknown) (no (unknown) (unknown) Documented By: KB (units (unknown) date) unknown) (unknown) (no (unknown) (unknown) Documented By: KM (units (unknown) date) unknown) (unknown) (no (unknown) (unknown) ED Orders (units (unkn own) date) unknown) (unknown) (no (unknown) (unknown) ER Physician: (units ( unknown) date) Botnick,Wendy unknown) D.O. (unknown) (no (unknown) (unknown) EXTREMITIES: (units (u nknown) date) Normal range of unknown) motion, no clubbing or edema. Neurovascularly (unknown) (no (unknown) (unknown) Emergency Report (units (unknown) date) unknown) (unknown) (no (unknown) (unknown) Eos # (Auto) 100 (units (unknown) date) (0-450) /uL unknown) (unknown) (no (unknown) (unknown) Eos % (Auto) 1.1 (units (unknown) date) L (2-4) % unknown) (unknown) (no (unknown) (unknown) Esterase (units (unkno wn) date) unknown) (unknown) (no (unknown) (unknown) Estimated GFR > (units (unknown) date) 60 (>60) mL/min unknown) (unknown) (no (unknown) (unknown) Exam (units (unkno wn) date) unknown) (unknown) (no (unknown) (unknown) FINDINGS:? (units (unk nown) date) unknown) (unknown) (no (unknown) (unknown) Allen catheter is (units (unknown) date) placed. I have unknown) instructed him to follow-up with PCM to have (unknown) (no (unknown) (unknown) Fracture (units (unkno wn) date) unknown) (unknown) (no (unknown) (unknown) GENERAL: Alert (units (unknown) date) 47-year-old male unknown) and in no acute distress. (unknown) (no (unknown) (unknown) General (units (unkno wn) date) unknown) (unknown) (no (unknown) (unknown) Globulin 3.2 (units (u nknown) date) (1.7-4.1) g/dL unknown) (unknown) (no (unknown) (unknown) Glucose 155 H (units ( unknown) date) (70-100) mg/dL unknown) (unknown) (no (unknown) (unknown) HEENT: Head (units (un known) date) atraumatic,EOMI, unknown) pupils reactive, face symmetric, moist mucous (unknown) (no (unknown) (unknown) HPI - Neuro (units (un known) date) Symptoms/Deficit unknown) (unknown) (no (unknown) (unknown) HPI Narrative: (units (unknown) date) unknown) (unknown) (no (unknown) (unknown) Hct 43.1 (41-53) (units (unknown) date) % unknown) (unknown) (no (unknown) (unknown) Headache, (units (unkn own) date) migraine unknown) (unknown) (no (unknown) (unknown) Hematologic/Lymph (units (unknown) date) atic unknown) (unknown) (no (unknown) (unknown) Hepatic steatosis (units (unknown) date) unknown) (unknown) (no (unknown) (unknown) Herniated disc, (units (unknown) date) Acute urinary unknown) retention (unknown) (no (unknown) (unknown) Hgb 15.3 (units (unkno wn) date) (13.5-17.5) g/dL unknown) (unknown) (no (unknown) (unknown) History of (units (unk nown) date) Present Illness unknown) (unknown) (no (unknown) (unknown) History of hernia (units (unknown) date) repair unknown) (unknown) (no (unknown) (unknown) History of (units (unk nown) date) vasectomy unknown) (unknown) (no (unknown) (unknown) Home Medications (units (unknown) date) unknown) (unknown) (no (unknown) (unknown) Hydrocodone (units (un known) date) Bitart/Acetaminoph unknown) en (Hydrocodone/Acet 5/325 Tablet) 2 tab PO NOW (unknown) (no (unknown) (unknown) Hydromorphone HCl (units (unknown) date) (Hydromorphone 0.5 unknown) Mg Inj) 0.5 mg IV NOW ONE (unknown) (no (unknown) (unknown) Hydromorphone HCl (units (unknown) date) (Hydromorphone 1 unknown) Mg Inj) 1 mg IV NOW ONE (unknown) (no (unknown) (unknown) Hyperlipidemia (units (unknown) date) unknown) (unknown) (no (unknown) (unknown) Hypertension (units (u nknown) date) unknown) (unknown) (no (unknown) (unknown) IMPRESSION:? (units (u nknown) date) unknown) (unknown) (no (unknown) (unknown) INDICATIONS:? (units ( unknown) date) can't pee back unknown) pain (unknown) (no (unknown) (unknown) Image quality:? (units (unknown) date) Excellent.? unknown) (unknown) (no (unknown) (unknown) Imaging Data (units (u nknown) date) unknown) (unknown) (no (unknown) (unknown) Initial Vital (units ( unknown) date) Signs unknown) (unknown) (no (unknown) (unknown) Initial Vital (units ( unknown) date) Signs: unknown) (unknown) (no (unknown) (unknown) Instructions: How (units (unknown) date) to Care for Your unknown) Allen Catheter -- Male, DI for Herniated (unknown) (no (unknown) (unknown) [facility] (units (unknown) date) [address] unknown) [place] [address] (unknown) (no (unknown) (unknown) Janumet 50-1,000 (units (unknown) date) mg tablet unknown) (unknown) (no (unknown) (unknown) L1-L2:? Normal (units (unknown) date) appearance.? unknown) (unknown) (no (unknown) (unknown) L2-L3:? Normal (units (unknown) date) appearance.? unknown) (unknown) (no (unknown) (unknown) L3-L4:? Normal (units (unknown) date) appearance.? unknown) (unknown) (no (unknown) (unknown) L4-L5:? Central (units (unknown) date) disc bulge at L4-5 unknown) level is seen new since previous study with (unknown) (no (unknown) (unknown) L5-S1:? Normal (units (unknown) date) appearance.? unknown) (unknown) (no (unknown) (unknown) Lab Data (units (unkno wn) date) unknown) (unknown) (no (unknown) (unknown) Lab Results (units (un known) date) unknown) (unknown) (no (unknown) (unknown) Labs: (units (unkno wn) date) unknown) (unknown) (no (unknown) (unknown) Last Admin: (units (un known) date) 03/04/22 11:08 unknown) Dose: 1 mg (unknown) (no (unknown) (unknown) Last Admin: (units (un known) date) 03/04/22 12:16 unknown) Dose: 1 mg (unknown) (no (unknown) (unknown) Last Admin: (units (un known) date) 03/04/22 13:21 unknown) Dose: 1 mg (unknown) (no (unknown) (unknown) Last Admin: (units (un known) date) 03/04/22 15:15 unknown) Dose: 0.5 mg (unknown) (no (unknown) (unknown) Last Admin: (units (un known) date) 03/04/22 15:15 unknown) Dose: 6 ml (unknown) (no (unknown) (unknown) Last Admin: (units (un known) date) 03/04/22 17:25 unknown) Dose: 2 tab (unknown) (no (unknown) (unknown) Lidocaine HCl (units ( unknown) date) (Lidocaine 2% unknown) (Glydo) 6 Ml Gel) 6 ml TOP NOW ONE (unknown) (no (unknown) (unknown) Loc: ED (units (unkno wn) date) unknown) (unknown) (no (unknown) (unknown) Lorazepam (units (unkn own) date) (Lorazepam 2 Mg/Ml unknown) Inj) 1 mg IV NOW ONE (unknown) (no (unknown) (unknown) Lymph # (Auto) (units (unknown) date) 1600 (8426-9779) unknown) /uL (unknown) (no (unknown) (unknown) Lymph % (Auto) (units (unknown) date) 24.0 L (25-40) % unknown) (unknown) (no (unknown) (unknown) MCH 28.7 (26-34) (units (unknown) date) PG unknown) (unknown) (no (unknown) (unknown) MCHC 35.4 (30-36) (units (unknown) date) % unknown) (unknown) (no (unknown) (unknown) MCV 81.0 (80-100) (units (unknown) date) fL unknown) (unknown) (no (unknown) (unknown) MDM - Neuro (units (un known) date) Symptoms/Deficit unknown) (unknown) (no (unknown) (unknown) MDM Narrative (units ( unknown) date) unknown) (unknown) (no (unknown) (unknown) MR lumbar spine (units (unknown) date) wo con Stat unknown) (unknown) (no (unknown) (unknown) MR lumbar: (units (unk nown) date) unknown) (unknown) (no (unknown) (unknown) MR#: [id number] (units (unknown) date) unknown) (unknown) (no (unknown) (unknown) MRI of the (units (unk nown) date) thoracic spine unknown) however patient did have a thoracic spine MRI back in (unknown) (no (unknown) (unknown) Medical History (units (unknown) date) (Reviewed 05/28/21 unknown) @ 14:56 by Delbert Rudolph MD) (unknown) (no (unknown) (unknown) Medical decision (units (unknown) date) making narrative: unknown) (unknown) (no (unknown) (unknown) Medication (units (unk nown) date) Instructions unknown) Recorded Confirmed (unknown) (no (unknown) (unknown) Medication (units (unk nown) date) Instructions unknown) Recorded (unknown) (no (unknown) (unknown) Mode of arrival: (units (unknown) date) Wheelchair unknown) (unknown) (no (unknown) (unknown) [place]y # (Auto) 500 (units (unknown) date) (0-900) /uL unknown) (unknown) (no (unknown) (unknown) [place]y % (Auto) 7.8 (units (unknown) date) (3-14) % unknown) (unknown) (no (unknown) (unknown) NEUROLOGICAL: (units ( unknown) date) Alert and oriented unknown) x4. Left leg is weak but he is able to lift up (unknown) (no (unknown) (unknown) Neut # (Auto) (units ( unknown) date) 4500 (9635-5203) unknown) /uL (unknown) (no (unknown) (unknown) Neut % (Auto) (units ( unknown) date) 66.7 (50-75) % unknown) (unknown) (no (unknown) (unknown) New (units (unkno wn) date) unknown) (unknown) (no (unknown) (unknown) No Action (units (unkn own) date) unknown) (unknown) (no (unknown) (unknown) Noncontrast (units (un known) date) sagittal T1 spin unknown) echo and T2 fast echo, sagittal STIR, and T2 fast (unknown) (no (unknown) (unknown) Rawlings 1 tablet (units (unknown) date) every 6 hours if unknown) needed for severe pain (unknown) (no (unknown) (unknown) ONE (units (unkno wn) date) unknown) (unknown) (no (unknown) (unknown) On (units (unkno wn) date) Anticoagulants: No unknown) (unknown) (no (unknown) (unknown) Ordered: (units (unkno wn) date) unknown) (unknown) (no (unknown) (unknown) Ordering (units (unkno wn) date) Provider: unknown) Wendy Davis D.O. (unknown) (no (unknown) (unknown) Orders (units (unkno wn) date) unknown) (unknown) (no (unknown) (unknown) Oxygen Delivery (units (unknown) date) Method 03/04/22 unknown) 10:28 (unknown) (no (unknown) (unknown) Oxygen Delivery (units (unknown) date) Method Room Air unknown) Room Air (unknown) (no (unknown) (unknown) Oxygen Delivery (units (unknown) date) Method unknown) (unknown) (no (unknown) (unknown) PROCEDURE:? MR (units (unknown) date) LUMBAR SPINE WO unknown) CON (unknown) (no (unknown) (unknown) Paraspinous Soft (units (unknown) date) Tissues:? No unknown) paravertebral masses.? (unknown) (no (unknown) (unknown) Patient (units (unkno wn) date) Disposition: Home unknown) (unknown) (no (unknown) (unknown) Patient History (units (unknown) date) unknown) (unknown) (no (unknown) (unknown) Patient has (units (un known) date) urinary retention unknown) and acute on chronic back pain with new disc (unknown) (no (unknown) (unknown) Patient is a (units (u nknown) date) 47-year-old male unknown) history of diabetes chronic back pain presenting (unknown) (no (unknown) (unknown) Patient is a (units (un known) date) 47-year-old male unknown) with chronic back problems and diabetes presenting (unknown) (no (unknown) (unknown) Patient is still (units (unknown) date) having difficulty unknown) emptying his bladder. (unknown) (no (unknown) (unknown) Patient reports (units (unknown) date) that he actually unknown) does take Flomax but that his prostate has not (unknown) (no (unknown) (unknown) Patient updated (units (unknown) date) on patient on test unknown) results consult recommendations need for (unknown) (no (unknown) (unknown) Patient: (units (unkno wn) date) Mehran Abraham unknown) MR#: [id number] (unknown) (no (unknown) (unknown) Penicillins (units (un known) date) Allergy Mild Rash unknown) Verified 03/04/22 10:33 (unknown) (no (unknown) (unknown) Plt Count 205 (units ( unknown) date) (150-400) X103/uL unknown) (unknown) (no (unknown) (unknown) Potassium 3.1 L (units (unknown) date) (3.4-5.1) mmol/L unknown) (unknown) (no (unknown) (unknown) Prednisone 40 mg (units (unknown) date) once a day for 5 unknown) days (unknown) (no (unknown) (unknown) Prescriptions: (units (unknown) date) unknown) (unknown) (no (unknown) (unknown) Previous Rx's (units ( unknown) date) unknown) (unknown) (no (unknown) (unknown) Procedure: MR (units ( unknown) date) lumbar spine wo unknown) con (unknown) (no (unknown) (unknown) Pulse Oximetry 94 (units (unknown) date) 92 98 unknown) (unknown) (no (unknown) (unknown) Pulse Oximetry 94 (units (unknown) date) 94 unknown) (unknown) (no (unknown) (unknown) Pulse Oximetry 97 (units (unknown) date) 03/04/22 10:28 unknown) (unknown) (no (unknown) (unknown) Pulse Rate 70 73 (units (unknown) date) unknown) (unknown) (no (unknown) (unknown) Pulse Rate 74 69 (units (unknown) date) 66 unknown) (unknown) (no (unknown) (unknown) Pulse Rate 87 (units ( unknown) date) 03/04/22 10:28 unknown) (unknown) (no (unknown) (unknown) RBC 5.32 (units (unkno wn) date) (4.5-5.9) X106/uL unknown) (unknown) (no (unknown) (unknown) RDW 14.8 (units (unkno wn) date) (11.6-14.8) % unknown) (unknown) (no (unknown) (unknown) RESPIRATORY: (units (u nknown) date) Breath sounds unknown) equal bilaterally, no wheezes rales or rhonchi. (unknown) (no (unknown) (unknown) Radiologist's (units ( unknown) date) Impression: unknown) (unknown) (no (unknown) (unknown) Referrals: (units (unk nown) date) unknown) (unknown) (no (unknown) (unknown) Related Data (units (u nknown) date) unknown) (unknown) (no (unknown) (unknown) Respiratory Rate (units (unknown) date) 17 16 unknown) (unknown) (no (unknown) (unknown) Respiratory Rate (units (unknown) date) 20 03/04/22 10:28 unknown) (unknown) (no (unknown) (unknown) Respiratory Rate (units (unknown) date) unknown) (unknown) (no (unknown) (unknown) Result diagrams: (units (unknown) date) unknown) (unknown) (no (unknown) (unknown) Review of Systems (units (unknown) date) unknown) (unknown) (no (unknown) (unknown) Rx Instructions: (units (unknown) date) unknown) (unknown) (no (unknown) (unknown) SKIN: Warm, dry, (units (unknown) date) no laceration, no unknown) petechiae, no rashes or lesions. (unknown) (no (unknown) (unknown) October and (units ( unknown) date) there is really no unknown) other abnormality by either orthopedic surgeon (unknown) (no (unknown) (unknown) Signed By: (units (unk nown) date) unknown) (unknown) (no (unknown) (unknown) Smoking Status: (units (unknown) date) Never smoker unknown) (unknown) (no (unknown) (unknown) Social History (units (unknown) date) (Reviewed 05/17/21 unknown) @ 13:15 by Mckenna Meza DO) (unknown) (no (unknown) (unknown) Sodium 138 (units (unk nown) date) (137-145) mmol/L unknown) (unknown) (no (unknown) (unknown) Source: patient (units (unknown) date) unknown) (unknown) (no (unknown) (unknown) Spinal Cord:? (units ( unknown) date) Conus medullaris unknown) terminates at the T12-L1 level.? Visualized cord (unknown) (no (unknown) (unknown) Stand Alone (units (un known) date) Forms: Patient unknown) Portal/API (unknown) (no (unknown) (unknown) Stated Complaint: (units (unknown) date) sent by [facility] unknown) Hosp. slipped t-8 thinks slipped dis (unknown) (no (unknown) (unknown) Stop: 03/04/22 (units (unknown) date) 11:01 unknown) (unknown) (no (unknown) (unknown) Stop: 03/04/22 (units (unknown) date) 12:13 unknown) (unknown) (no (unknown) (unknown) Stop: 03/04/22 (units (unknown) date) 13:19 unknown) (unknown) (no (unknown) (unknown) Stop: 03/04/22 (units (unknown) date) 15:12 unknown) (unknown) (no (unknown) (unknown) Stop: 03/04/22 (units (unknown) date) 15:13 unknown) (unknown) (no (unknown) (unknown) Stop: 03/04/22 (units (unknown) date) 17:23 unknown) (unknown) (no (unknown) (unknown) Substance Use (units ( unknown) date) Type: does not use unknown) (unknown) (no (unknown) (unknown) Surgical History (units (unknown) date) (Reviewed 05/28/21 unknown) @ 14:56 by Delbert Rudolph MD) (unknown) (no (unknown) (unknown) T12-L1:? Normal (units (unknown) date) appearance.? unknown) (unknown) (no (unknown) (unknown) TECHNIQUE:? (units (un known) date) unknown) (unknown) (no (unknown) (unknown) Take 2 capsule by (units (unknown) date) oral route 2 times unknown) every day in the morning and evening (unknown) (no (unknown) (unknown) Temperature 97.8 (units (unknown) date) F 03/04/22 10:28 unknown) (unknown) (no (unknown) (unknown) Time Seen by (units (u nknown) date) Provider: 03/04/22 unknown) 10:48 (unknown) (no (unknown) (unknown) Total Bilirubin (units (unknown) date) 0.8 (0.2-1.3) unknown) mg/dL (unknown) (no (unknown) (unknown) Total Protein 7.9 (units (unknown) date) (6.3-8.2) g/dL unknown) (unknown) (no (unknown) (unknown) Traumatic (units (unkn own) date) complete tear of unknown) right rotator cuff (unknown) (no (unknown) (unknown) Urine Dip (units (unkn own) date) unknown) (unknown) (no (unknown) (unknown) Urine Specific (units (unknown) date) [employer] 1.025 unknown) (unknown) (no (unknown) (unknown) Poncho Anguiano, (units (unknown) date) DO [Primary Care unknown) Provider] (unknown) (no (unknown) (unknown) Vital Signs - 8 (units (unknown) date) hr unknown) (unknown) (no (unknown) (unknown) Vital Signs (units (un known) date) unknown) (unknown) (no (unknown) (unknown) Vital signs: (units (u nknown) date) unknown) (unknown) (no (unknown) (unknown) WBC 6.7 (units (unkno wn) date) (4.5-11.0) X103/uL unknown) (unknown) (no (unknown) (unknown) With Meals (units (unk nown) date) unknown) (unknown) (no (unknown) (unknown) [Embedded Image (units (unknown) date) Not Available] unknown) (unknown) (no (unknown) (unknown) ablation. A month (units (unknown) date) ago he was seen at unknown) [facility] for further neurologic testing he (unknown) (no (unknown) (unknown) acetaminophen/Tyl (units (unknown) date) enol/paracetamol unknown) in it, DO NOT TAKE MORE THAN 4,00mg in 24 (unknown) (no (unknown) (unknown) acute finding. So (units (unknown) date) disc L4-L5 is new unknown) probably from injury on the 1st but (unknown) (no (unknown) (unknown) alcohol intake (units (unknown) date) frequency: unknown) holidays/special occasions only (unknown) (no (unknown) (unknown) along left leg (units (unknown) date) weakness. he unknown) reports that he had an injury where he slipped and (unknown) (no (unknown) (unknown) also need to (units (u nknown) date) follow-up with unknown) orthopedics spine in regards to your back. (unknown) (no (unknown) (unknown) any urinary or (units (unknown) date) stool unknown) incontinence. He does have some left leg weakness is at (unknown) (no (unknown) (unknown) atorvastatin 20 (units (unknown) date) mg tablet 20 mg PO unknown) DAILY 04/18/21 05/28/21 (unknown) (no (unknown) (unknown) atorvastatin 20 (units (unknown) date) mg tablet unknown) (unknown) (no (unknown) (unknown) baseline but it (units (unknown) date) seems to be unknown) getting a little bit worse. He is had multiple back (unknown) (no (unknown) (unknown) been checked in a (units (unknown) date) while. Possible unknown) BPH problem although patient is relatively (unknown) (no (unknown) (unknown) benzodiazepines (units (unknown) date) or controlled unknown) substances through the ED and her pain management (unknown) (no (unknown) (unknown) bilateral neural (units (unknown) date) foraminal unknown) narrowing. Previous MRI from 11/23/2021, shows no (unknown) (no (unknown) (unknown) celecoxib 100 mg (units (unknown) date) capsule 100 mg PO unknown) DAILY 04/18/21 05/28/21 (unknown) (no (unknown) (unknown) celecoxib 100 mg (units (unknown) date) capsule unknown) (unknown) (no (unknown) (unknown) central canal (units ( unknown) date) unknown) (unknown) (no (unknown) (unknown) chills. No IVDA. (units (unknown) date) He gets back pain unknown) regularly he has medications that usually (unknown) (no (unknown) (unknown) compression (units (un known) date) unknown) (unknown) (no (unknown) (unknown) concern for an (units (unknown) date) infection. Blood unknown) work is overall reassuring without (unknown) (no (unknown) (unknown) constipation. (units ( unknown) date) unknown) (unknown) (no (unknown) (unknown) cyclobenzaprine 5 (units (unknown) date) mg tablet 5 mg PO unknown) TID PRN muscle spasm #10 03/04/22 (unknown) (no (unknown) (unknown) cyclobenzaprine 5 (units (unknown) date) mg tablet unknown) (unknown) (no (unknown) (unknown) demonstrates (units (u nknown) date) normal signal and unknown) size.? (unknown) (no (unknown) (unknown) difficult to say. (units (unknown) date) unknown) (unknown) (no (unknown) (unknown) duloxetine 30 mg (units (unknown) date) capsule,delayed 30 unknown) mg PO DAILY 04/18/21 05/28/21 (unknown) (no (unknown) (unknown) duloxetine 30 mg (units (unknown) date) capsule,delayed unknown) release(DR/EC) (unknown) (no (unknown) (unknown) duloxetine 60 mg (units (unknown) date) capsule,delayed 60 unknown) mg PO DAILY 04/18/21 05/28/21 (unknown) (no (unknown) (unknown) duloxetine 60 mg (units (unknown) date) capsule,delayed unknown) release(DR/EC) (unknown) (no (unknown) (unknown) effacement of (units ( unknown) date) thecal sac unknown) anteriorly.? Mild bilateral neural foraminal narrowing (unknown) (no (unknown) (unknown) equina or (units (unkn own) date) epidural abscess. unknown) Patient is requiring Dilaudid for pain medication (unknown) (no (unknown) (unknown) equina or spinal (units (unknown) date) cord edema. There unknown) is a mild central canal stenosis and mild (unknown) (no (unknown) (unknown) erections and (units ( unknown) date) feels like he is unknown) not emptying his bladder all the way. He denies (unknown) (no (unknown) (unknown) fell while (units (unk nown) date) golfing on February unknown) . Since then he is had difficult time with (unknown) (no (unknown) (unknown) follow-up. He is (units (unknown) date) established with unknown) [facility] with Dr. Puri. But will (unknown) (no (unknown) (unknown) fractures.? (units (un known) date) unknown) (unknown) (no (unknown) (unknown) guarding or (units (un known) date) rebound. unknown) (unknown) (no (unknown) (unknown) had an EEG and (units (unknown) date) other test unknown) specifically for his left leg. He denies any fevers (unknown) (no (unknown) (unknown) he really sees no (units (unknown) date) evidence that unknown) lumbar spine causing urinary retention. (unknown) (no (unknown) (unknown) herniation at (units ( unknown) date) L4-L5 region. To unknown) orthopedics agree 1 a spine surgeon who state (unknown) (no (unknown) (unknown) his Allen (units (unkn own) date) catheter removed. unknown) There is no evidence of UTI. Possible BPH however (unknown) (no (unknown) (unknown) his back pain (units ( unknown) date) including Rawlings unknown) prednisone and cyclobenzaprine. All of those have (unknown) (no (unknown) (unknown) his thoracic. (units ( unknown) date) unknown) (unknown) (no (unknown) (unknown) hours of Tylenol. (units (unknown) date) unknown) (unknown) (no (unknown) (unknown) household (units (unkn own) date) members: children unknown) (unknown) (no (unknown) (unknown) hydrocodone 5 (units ( unknown) date) mg-acetaminophen unknown) 325 1 tab PO Q6H PRN pain #10 tabs 03/04/22 (unknown) (no (unknown) (unknown) hydrocodone-aceta (units (unknown) date) minophen 5-325 mg unknown) tablet (unknown) (no (unknown) (unknown) hydroxyzine (units (un known) date) pamoate 25 mg unknown) Capsule (unknown) (no (unknown) (unknown) hydroxyzine (units (un known) date) pamoate 25 mg unknown) capsule 25 mg PO Q6HR PRN Spasms #30 caps 04/20/21 (unknown) (no (unknown) (unknown) in the emergency (units (unknown) date) department. He is unknown) afebrile and not complaining of fever no (unknown) (no (unknown) (unknown) intact (units (unkno wn) date) unknown) (unknown) (no (unknown) (unknown) is 155. MRI does (units (unknown) date) show disc bulge at unknown) L4-L5 region but no evidence of cauda (unknown) (no (unknown) (unknown) is also (units (unkno wn) date) unknown) (unknown) (no (unknown) (unknown) is quite out of (units (unknown) date) control. Last unknown) night he needed pain medication and alcohol in (unknown) (no (unknown) (unknown) leukocytosis. (units ( unknown) date) There is no unknown) evidence of electrolyte abnormality or DKA. Glucose (unknown) (no (unknown) (unknown) lisinopril 40 mg (units (unknown) date) tablet 40 mg PO unknown) DAILY 04/18/21 05/28/21 (unknown) (no (unknown) (unknown) lisinopril 40 mg (units (unknown) date) tablet unknown) (unknown) (no (unknown) (unknown) may be (units (unkno wn) date) performed.? unknown) (unknown) (no (unknown) (unknown) membranes (units (unkn own) date) unknown) (unknown) (no (unknown) (unknown) mg tablet (units (unkn own) date) unknown) (unknown) (no (unknown) (unknown) mg-metformin (units (u nknown) date) 1,000 mg tablet unknown) (unknown) (no (unknown) (unknown) mild (units (unkno wn) date) unknown) (unknown) (no (unknown) (unknown) need spine. He (units (unknown) date) understands when unknown) to return to the ED. Given medications for (unknown) (no (unknown) (unknown) not previously on (units (unknown) date) opiates I do not unknown) suspect that this is opiate retention (unknown) (no (unknown) (unknown) not related. You (units (unknown) date) may have your unknown) catheter removed in 3-7 days by primary care (unknown) (no (unknown) (unknown) noted. (units (unkno wn) date) unknown) (unknown) (no (unknown) (unknown) off the gurney. (units (unknown) date) Decreased unknown) sensation in the left leg starting just inferior to (unknown) (no (unknown) (unknown) on the lumbar (units ( unknown) date) spine. He is unknown) having pain in his lower lumbar area not necessarily (unknown) (no (unknown) (unknown) or any new, (units (un known) date) worsening or unknown) concerning symptoms (unknown) (no (unknown) (unknown) order to go to (units (unknown) date) sleep unknown) (unknown) (no (unknown) (unknown) patient is quite (units (unknown) date) young at the age unknown) of 47 by he is already on tamsulosin. He was (unknown) (no (unknown) (unknown) persistent (units (unk nown) date) urinary retention unknown) severe back pain. He agrees that this is likely 2 (unknown) (no (unknown) (unknown) perspective. (units (u nknown) date) unknown) (unknown) (no (unknown) (unknown) prednisone 20 mg (units (unknown) date) tablet 40 mg PO unknown) DAILY #10 tabs 03/04/22 (unknown) (no (unknown) (unknown) prednisone 20 mg (units (unknown) date) tablet unknown) (unknown) (no (unknown) (unknown) previously worked (units (unknown) date) for him. unknown) (unknown) (no (unknown) (unknown) problem. (units (unkno wn) date) unknown) (unknown) (no (unknown) (unknown) provider. Please (units (unknown) date) be sure that you unknown) urinate after it has been removed. He will (unknown) (no (unknown) (unknown) release (units (unkno wn) date) unknown) (unknown) (no (unknown) (unknown) rest of the (units (un known) date) lumbar spine. unknown) (unknown) (no (unknown) (unknown) reviewed MRI (units (un known) date) himself reports unknown) that there is a disc but it is unlikely causing his (unknown) (no (unknown) (unknown) seen in (units (unkno wn) date) unknown) (unknown) (no (unknown) (unknown) sitagliptin (units (un known) date) phosphate 50 50 - unknown) 1,000 tab PO BID 04/18/21 05/28/21 (unknown) (no (unknown) (unknown) spin echo (units (unkn own) date) unknown) (unknown) (no (unknown) (unknown) stenosis and mild (units (unknown) date) bilateral neural unknown) foraminal narrowing. (unknown) (no (unknown) (unknown) stool softener (units (unknown) date) such as Colace, unknown) Dulcolax, MiraLAX or prune juice, to help avoid (unknown) (no (unknown) (unknown) tabs (units (unkno wn) date) unknown) (unknown) (no (unknown) (unknown) that symptoms are (units (unknown) date) likely unrelated unknown) to each other. I was recommended possible (unknown) (no (unknown) (unknown) the knee. (units (unkn own) date) unknown) (unknown) (no (unknown) (unknown) through the (units (un known) date) lumbar spine.? In unknown) cases with scoliosis, additional coronal T2 fast (unknown) (no (unknown) (unknown) today with (units (unk nown) date) worsening back unknown) pain difficulty urinating difficulty with erections (unknown) (no (unknown) (unknown) topiramate 25 mg (units (unknown) date) tablet 50 mg PO unknown) BID 04/18/21 05/28/21 (unknown) (no (unknown) (unknown) topiramate 25 mg (units (unknown) date) tablet unknown) (unknown) (no (unknown) (unknown) unrelated (units (unkn own) date) problems. Does unknown) suggest if needed could MR that thoracic spine however (unknown) (no (unknown) (unknown) urinary (units (unkno wn) date) retention. No need unknown) for emergent surgery or intervention from a spine (unknown) (no (unknown) (unknown) will need to be (units (unknown) date) through your unknown) provider. (unknown) (no (unknown) (unknown) with worsening (units (unknown) date) back pain along unknown) with difficulty urination concern for cauda (unknown) (no (unknown) (unknown) work he has done (units (unknown) date) lidocaine patches unknown) and everything he normally does but his pain (unknown) (no (unknown) (unknown) young. (units (unkno wn) date) unknown) Social History date description facility 2022-03-04 00:00 Never smoked tobacco (finding) [facility] Vital Signs date measurement value units 2022-03-04 00:00 BMI 30.3 kg/m2 2022-03-04 00:00 BP_diastolic 72 mmHg 2022-03-04 00:00 BP_systolic 138 mmHg 2022-03-04 00:00 heart_rate 66 /min 2022-03-04 00:00 height_metric 185.42 cm 2022-03-04 00:00 height_standard 73 in 2022-03-04 00:00 o2_saturation 98 % 2022-03-04 00:00 respiration_rate 16 /min 2022-03-04 00:00 temperature_metric 36.56 C 2022-03-04 00:00 temperature_standard 97.8 F 2022-03-04 00:00 weight_metric 104.32 kg 2022-03-04 00:00 weight_standard 229.99 lb
--- NOTE | 2022-04-12 13:08 | XRAY Report ---
PROCEDURE: Chest 1 View X-Ray INDICATIONS: Chest Pain TECHNIQUE: One view of the chest was acquired. COMPARISON: None. FINDINGS: Surgical changes and devices: None. Lungs and pleura: No pleural effusions or pneumothorax. Lungs are clear. Mediastinum: Mediastinal contours appear normal. Heart size is normal. Bones and chest wall: No suspicious bony lesions. Overlying soft tissues appear unremarkable. IMPRESSION: No evidence acute pulmonary process. Reviewed by: Allen López MD on 04/12/2022 1:[address] [facility] Approved by: Allen López MD on 04/12/2022 1:[address] [facility] Station ID: [id number]
[2022-04-12 13:16] LABS: ALBUMIN 3.9 g/dL (3.2-5.5); ALBUMIN/GLOBULIN RATIO 1.3 (1.0-2.2); BILIRUBIN,TOTAL 0.7 mg/dL (0.2-1.0); CALCIUM 8.5 mg/dL (8.5-10.3); CREATININE 0.9 mg/dL (0.6-1.2); POTASSIUM 3.1 mmol/L (3.5-5.0); TOTAL PROTEIN 6.8 g/dL (6.7-8.2)
[2022-04-12] MEDS ORDERED: POTASSIUM CHLORIDE 20 MEQ TABLET PO STA (13:31)
[2022-04-12 16:06] VITALS: BP 143/88
== END 2022-04-12 16:05 | disposition home or self-care (01) ==
LOC: EDUNIT# → ED 12:36
DX: R07.9 Chest pain, unspecified (principal); I10 Essential (primary) hypertension; E11.9 Type 2 diabetes mellitus without complications; Z79.84 Long term (current) use of oral hypoglycemic drugs; Z79.85 Long-term (current) use of injectable non-insulin antidiabetic drugs; Z20.822 Contact with and (suspected) exposure to COVID-19
CPT/HCPCS: 36415; 71045; 80053; 83690; 84484; 85025; 87635; 93005; 99284; A9270

== ENCOUNTER 2022-07-20 07:45 | Outpatient (CLI) | payer OTHER ==
--- NOTE | 2022-07-23 16:54 | MRI Report ---
PROCEDURE: SHOULDER WO - RT INDICATIONS: PAIN IN RIGHT SHOULDER TECHNIQUE: Noncontrast oblique coronal T2 fast spin echo with fat saturation, oblique sagittal T1 spin echo and T2 fast spin echo with fat saturation, axial T1 spin echo and T2 fast spin echo with fat saturation t hrough the shoulder. COMPARISON: None. FINDINGS: Image quality: Degraded by motion artifact. Rotator cuff: Mild T2 signal elevation diffusely throughout the supraspinatus and infraspinatus tendo ns at the humeral insertion site extending the muscular tendinous junctions, indicating tendinopathy. Superimposed low-grade intrasubstance tearing of the anterior and mid supraspinatus tendon at the hu meral insertion site. Full-thickness tearing of the mid subscapularis tendon at the humeral insertion site extending the muscular tendinous junction. Infraspinatus tendon demonstrates low-grade bursal s urface tears of its mid and posterior aspect. Teres minor is intact. No rotator cuff atrophy. Bones and bursae: No bone marrow contusions or fractures. Moderate acromioclavicular joint degenerat ion. The acromion demonstrates conventional anatomy, without an os acromiale. No pathologic subacro mial/subdeltoid bursal fluid is present. Capsule and soft tissues: In the absence of intra-articular contrast, the labrum and glenohumeral li gaments appear intact. The long head of the biceps tendon demonstrates normal location and morpholog y. The rotator interval appears normal, without fibrosis. The coracohumeral ligament is normal in t hickness. IMPRESSION: 1. Partial thickness tearing of the supraspinatus and infraspinatus tendons. 2. Full-thickness tear of the subscapularis tendon. 3. Acromioclavicular joint osteoarthritis. Reviewed by: Lala Quick MD on 07/23/2022 4:53 PM PDT Approved by: Lala Quick MD on 07/23/2022 4:53 PM PDT Station ID: [id number]
== END 2022-07-20 07:46 | disposition home or self-care (01) ==
LOC: DI 07:45
PROVIDERS: ATTEND Orthopaedic Surgery
DX: M75.111 Incomplete rotator cuff tear or rupture of right shoulder, not specified as traumatic (principal); M75.121 Complete rotator cuff tear or rupture of right shoulder, not specified as traumatic; M19.011 Primary osteoarthritis, right shoulder

== ENCOUNTER 2023-06-05 10:34 | Day surgery (SDC) | payer OTHER ==
--- NOTE | 2023-06-05 08:37 | HISTORY & PHYSICAL EXAMINATION ---
History - Past Medical History Cardiovascular: reports: Hypertension, High cholesterol Respiratory: reports: Sleep apnea Endocrine/Autoimmune: reports: Type 2 diabetes : reports: Kidney stones HEENT: reports: None Psych: reports: Depression, Anxiety, ADD/ADHD, Post traumatic stress disorder Musculoskeletal: reports: Chronic back pain MRSA Hx?: No - Past Surgical History Ortho: reports: Shoulder arthroplasty, Spine surgery, Other Meds/Allgy - Home Medications Home Medications: Ambulatory Orders Medication Instructions Recorded Confirmed Atorvastatin [Lipitor] 20 mg PO DAILY 04/12/22 06/04/23 Chlorthalidone 25 mg PO DAILY 04/12/22 06/04/23 Cyclobenzaprine [Flexeril] 10 mg PO TID PRN 04/12/22 06/04/23 Duloxetine HCl [Cymbalta] 120 mg PO DAILY 04/12/22 06/04/23 Gabapentin [Neurontin] 1 - 2 cap PO TID PRN 04/12/22 06/04/23 Lisinopril [Zestril] 40 mg PO DAILY 04/12/22 06/04/23 Nitroglycerin [Nitrostat] 0.4 mg SL Q5MIN PRN #1 tab 04/12/22 06/04/23 Prazosin [Minipress] 3 - 5 cap PO DAILY PM 04/12/22 06/04/23 Sildenafil Citrate 0 mg PO ONCE 04/12/22 06/04/23 oxyCODONE [Roxicodone] 5 mg PO Q6H PRN 04/12/22 06/04/23 traZODone [Desyrel] 0.5 - 1.5 mg PO DAILY PM PRN 04/12/22 06/04/23 Dulaglutide [Trulicity] 1.5 mg SQ OAW 06/04/23 06/04/23 - Allergies Allergies/Adverse Reactions: Allergies Allergy/AdvReac Type Severity Reaction Status Date / Time Penicillins Allergy Rash Verified 06/04/23 13:29 Conclusion/Plan - Other Other Results/Comments: History of Present Illness: PT is here for a colonoscopy and EGD consult. ...................................................................Hillary Anderson RN May 12, 2023 2:13 PM. Alison is referred to my clinic for EGD to evaluate chronic GERD and for screening colonoscopy. He underwent successful Laparoscopic Armando 20 years ago but 1 month ago his reflux and heartburn recurred. He is using Tums occasionally and this helps. He was told that his Armando would last about 20 years and that if his symptoms recurred that he should have his UGI tract evaluated. He has chronic loose stools but no rectal bleeding. He has no FH of colitis, Crohn's or colorectal cancer. Mallampati Score Class II: The soft palate, tonsils, and most of the uvula can be seen ASA Physical Status Classification System ASA I: A normal healthy patient Allergies: Allergies Reviewed: Done PCN (PENICILLIN V POTASSIUM) (Critical) Social History Reviewed: Done Medications: Meds Reviewed: Done Suprep Bowel Prep Kit 17.5-3.13-1.6 gram recon soln (sodium,potassium,mag sulfates) Take 1 kit by mouth as directed as directed atorvastatin 80 mg tablet (atorvastatin) celecoxib 100 mg capsule (celecoxib) * chlorthalldone Cymbalta 60 mg capsule,delayed release(DR/EC) (duloxetine) Effexor XR 75 mg capsule,extended release 24hr (venlafaxine) gabapentin 300 mg capsule (gabapentin) lisinopril 40 mg tablet (lisinopril) metformin 500 mg tablet (metformin) Narcan 4 mg/actuation spray,non-aerosol (naloxone) oxycodone 5 mg tablet (oxycodone) trazodone 50 mg tablet (trazodone) Trulicity 3 mg/0.5 mL pen injector (dulaglutide) Problems: Problems Reviewed: Done Gastro-esophageal reflux disease without esophagitis (ICD-530.81) (GAZ17-Q00.9) Colon cancer screening (ICD-V76.51) (RDS27-B88.11) Skin cancer (ICD-173.90) (YFD42-B98.90) Insomnia (ICD-780.52) (TCI79-H63.00) Hypertension (NLA38-V51) Erectile dysfunction (ICD-607.84) (LOE31-L69.9) Dorsalgia (ICD-724.5) (ABA31-N29.9) Type 2 diabetes (ICD-250.00) (HEP45-N57.9) Chronic back pain (ICD-724.5) (GVN20-V85.9) [Family History-CCC] Review of Systems General Denies fever, anorexia and weight loss. GI Complains of diarrhea and indigestion/heartburn. Breast Denies left breast lump, right breast lump, nipple discharge, bloody discharge from nipple, breast pain, abnormal mammogram and breast enlargement. CV Denies chest pains, palpitations, syncope and peripheral edema. Resp Denies cough, shortness of breath, hemoptysis, wheezing and pleuritic chest pain. Denies dysuria, hematuria, discharge, urinary frequency, urinary hesitancy, nocturia, incontinence and erectile dysfunction. Vital Signs: Patient Profile: 48 Years Old Male Height: 73 inches Weight: 232 pounds BMI: 30.72 Temp: 97.7 degrees F oral Pulse rate: 79 / minute Resp: 20 per minute BP sittin / 69 Pt. in pain? no Vitals Entered By: Hillary Anderson RN (May 12, 2023 2:13 PM) Problems were reviewed with the patient during this visit. Medications were reviewed with the patient during this visit. Allergies were reviewed with the patient during this visit. Allergies: PCN (PENICILLIN V POTASSIUM) (Critical) Physical Exam General: well developed, well nourished, in no acute distress Head: normocephalic and atraumatic Eyes: PERRLA/EOM intact; onjunctiva and sclera clear Ears: Normal hearing Nose: no deformity, discharge, inflammation, or lesions Mouth: no deformity or lesions with good dentition Neck: no masses, thyromegaly, or abnormal cervical nodes Lungs: clear bilaterally to A & P Heart: regular rate and rhythm, S1, S2 without murmurs, rubs, gallops, or clicks Abdomen: bowel sounds positive; abdomen soft and non-tender without masses, organomegaly, or hernias noted Msk: no deformity or scoliosis noted with normal posture and gait Pulses: pulses normal in all 4 extremities Extremities: no clubbing, cyanosis, edema, or deformity noted with normal full range of motion of all joints Neurologic: no focal deficits, normal coordination, muscle strength and tone Skin: intact without lesions or rashes Psych: alert and cooperative; normal mood and affect; normal attention span and concentration Blood Pressure: Today's BP: 108/69 mmHg Impression & Recommendations: Problem # 1: Colon cancer screening (ICD-V76.51) (CYK98-Y75.11) Assessment: Screening colonoscopy exam requested P: Colonoscopy under IV sedation Consent: Alison has been counseled for the procedure, it's indications, risks, benefits and expected outcome as well as alternative therapies. We specifically discussed risks associated with anesthesia and insertion of the endoscope into the large intestine which includes bleeding and injury to the colon which may require surgical intervention. Alison understands, agrees, and consents to the proposed operative strategy and requests that we proceed with the procedure as outlined in our discussion. Problem # 2: Gastro-esophageal reflux disease without esophagitis (ICD-530.81) (IUJ91-O91.9) Assessment: Recurrent GERD symptoms, s/p Lap Armando. Plan: EGD during colonoscopy session. He will also likely need an UGI to evaluate the function of the esophagus after the EGD. Consent: Alison has been counseled for the procedure (EGD), it's indications, risks, benefits and expected outcome as well as alternative therapies. We specifically discussed risks associated with anesthesia and insertion of the endoscope into the UGI tract which includes bleeding and/or injury to the esophagus which may require surgical intervention. Alison understands, agrees, and consents to the proposed operative strategy and requests that we proceed with the procedure as outlined in our discussion. Rogerio Foote MD, [facility] General Surgery Service <><><><><><><><><> H&P Update: Patient examined, chart reviewed. No changes identified that would prevent proceeding with planned EGD and CS. Rogerio Foote MD, [facility] General Surgery Service 06/05/2023
[2023-06-05] MEDS: LACTATED RINGERS 1,000 ML IV ONE ×2 (10:37→11:52)
--- NOTE | 2023-06-05 11:09 | ANESTHESIA ---
Pre-Anesthesia VS, & Labs - Diagnosis GERD, screening - Procedure EGD, Colonoscopy Vital Signs: Temp Pulse Resp BP Pulse Ox O2 Flow Rate 36.4 C L 73 13 119/83 H 99 06/05/23 10:50 06/05/23 10:50 06/05/23 10:50 06/05/23 10:50 06/05/23 10:50 Height: 6 ft 1 in Weight (kg): 103.9 kg Body Mass Index: 30.2 BMI Classification: Obese - NPO Other (lat pret at 530) - Lab Results Current Lab Results: Laboratory Tests 06/05/23 10:59: POC Whole Bld Glucose 152 H Home Medications and Allergies Home Medications: Ambulatory Orders Dulaglutide [Trulicity] 1.5 mg SQ OAW 06/04/23 Atorvastatin [Lipitor] 20 mg PO DAILY 04/12/22 Chlorthalidone 25 mg PO DAILY 04/12/22 Cyclobenzaprine [Flexeril] 10 mg PO TID PRN 04/12/22 Duloxetine HCl [Cymbalta] 120 mg PO DAILY 04/12/22 Gabapentin [Neurontin] 1 - 2 cap PO TID PRN 04/12/22 Lisinopril [Zestril] 40 mg PO DAILY 04/12/22 Prazosin [Minipress] 3 - 5 cap PO DAILY PM 04/12/22 Sildenafil Citrate 0 mg PO ONCE 04/12/22 oxyCODONE [Roxicodone] 5 mg PO Q6H PRN 04/12/22 traZODone [Desyrel] 0.5 - 1.5 mg PO DAILY PM PRN 04/12/22 Dulaglutide [Trulicity] 1.5 mg SQ OAW 06/04/23 Allergies/Adverse Reactions: Allergies Allergy/AdvReac Type Severity Reaction Status Date / Time Penicillins Allergy Rash Verified 06/04/23 13:29 Anes History & Medical History - Anesthetic History Anesthesia Complications: reports: No previous complications - Medical History Cardiovascular: reports: Hypertension, High cholesterol Pulmonary: reports: Sleep apnea Urinary: reports: Kidney stones Musculoskeletal: reports: Chronic back pain Endocrine/Autoimmune: reports: Type 2 diabetes - Surgical History Orthopedic: reports: Shoulder arthroplasty, Spine surgery, Other Exam General: Alert Dental: WNL Mouth Opening: Greater than 4 Fingerbreadths Neck Mobility: Normal Mallampati classification: II Respiratory: Lungs clear Cardiovascular: Regular rate Plan Anesthesia Type: Total IV Consent for Procedure(s) Verified and Reviewed: Yes Code Status: Attempt Resuscitation ASA classification: 2-Mild systemic disease Is this case an emergency?: No
[2023-06-05] MEDS ORDERED: PROPOFOL 500 MG/50 ML 500 MG/50 ML VIAL ONE (11:18)
[2023-06-05] MEDS ORDERED: LIDOCAINE-PF 2% 10 ML AMP SUBQ ONE (11:19)
[2023-06-05 12:27] VITALS: BP 113/84; O2SAT 98
--- NOTE | 2023-06-05 14:13 | ANESTHESIA POST OP EVALUATION ---
Anesthesia Post Eval - Post Anesthesia Eval Vitals: Last Vital Signs Temp 36.3 C L 06/05/23 12:17 Pulse 66 06/05/23 12:17 Resp 13 06/05/23 12:17 BP 113/84 H 06/05/23 12:17 Pulse Ox 98 06/05/23 12:17 O2 Flow Rate CV Function Including HR & BP: Stable Pain Control: Satisfactory Nausea & Vomiting: Negative Mental Status: Baseline Respiratory Status: Airway Patent Hydration Status: Satisfactory Anesthesia Complications: None
== END 2023-06-05 10:35 | disposition home or self-care (01) ==
LOC: SDS 10:34
PROVIDERS: ATTEND Surgery
DX: Z12.2 Encounter for screening for malignant neoplasm of respiratory organs (principal); K21.9 Gastro-esophageal reflux disease without esophagitis; E11.9 Type 2 diabetes mellitus without complications; I10 Essential (primary) hypertension; G47.30 Sleep apnea, unspecified; E66.9 Obesity, unspecified; Z68.30 Body mass index [BMI] 30.0-30.9, adult; Z98.84 Bariatric surgery status; Z79.84 Long term (current) use of oral hypoglycemic drugs
CPT/HCPCS: 43235; 45378; J7120

== ENCOUNTER 2023-06-12 07:49 | Outpatient (CLI) | payer OTHER ==
--- NOTE | 2023-06-12 11:06 | MRI Report ---
Hand RT WO CLINICAL HISTORY: 48 years of age, Male, 3RD DIGIT PAIN, SWELLING. COMPARISON: None Technique: Multisequence, multiplanar MRI of the right hand was performed without contrast. IV CONTRAST: Not given FINDINGS: Bones and cartilage: Moderate degenerative changes of the first metacarpophalangeal joint. There is r adial subluxation at the first interphalangeal joint. Extensor tendons: Mild tenosynovitis of the third extensor tendon at the level of the third metacarp al phalangeal joint. There is mild ulnar subluxation of the third extensor tendon at the third metaca rpal head, likely secondary to tear in both the ulnar and radial sagittal band. In addition, there is mild ulnar subluxation of the extensor carpi ulnaris at the level of the ulnar groove. Flexor tendons: Flexor tendons and volar plates are intact. No tendinosis, tenosynovitis or tendon te ar. Ligaments: Ulnar and radial collateral ligaments, accessory and proper, are intact at all visualized metacarpophalangeal and interphalangeal joints. Soft tissues and miscellaneous: IMPRESSION: 1.Tear of the sagittal band at the third metacarpal head with ulnar subluxation of the third extensor tendon and mild tenosynovitis. 2.Moderate degenerative changes of the first metacarpophalangeal joint. 3.Radial subluxation at the first interphalangeal joint. Reviewed by: Aleah Alexis MD on 06/12/2023 11:05 AM PDT Approved by: Aleah Alexis MD on 06/12/2023 11:05 AM PDT Station ID: [id number]
== END 2023-06-12 07:50 | disposition home or self-care (01) ==
LOC: DI 07:49
PROVIDERS: ATTEND Family Medicine
DX: S66.312A Strain of extensor muscle, fascia and tendon of right middle finger at wrist and hand level, initial encounter (principal); M65.9 Synovitis and tenosynovitis, unspecified; M18.11 Unilateral primary osteoarthritis of first carpometacarpal joint, right hand; S63.121A Subluxation of interphalangeal joint of right thumb, initial encounter

== ENCOUNTER 2023-08-01 08:05 | Outpatient (CLI) | payer OTHER ==
--- NOTE | 2023-08-01 10:45 | MRI Report ---
Lumbar Spine WO Clinical History: 48 years of age, Male, LUMBAR RADICULOPATHY. Comparison: No priors available Technique: Multiplanar multisequence lumbar spine MRI without contrast was performed. Findings: Prior surgery: None. Vertebral bodies: Vertebral body heights are maintained. Alignment: Normal. Bone marrow: Multilevel mild fibrofatty endplate change. Intervertebral discs: Multilevel disc bulge and disc desiccation. The conus medullaris is normal in contour, signal intensity, and location. The tip of the conus is at L1-2. The following axial levels are detailed below: T12-L1: No central canal stenosis. No right neuroforaminal stenosis. No left neuroforaminal stenosis. L1-L2: No central canal stenosis. No right neuroforaminal stenosis. No left neuroforaminal stenosis. L2-L3: No central canal stenosis. No right neuroforaminal stenosis. No left neuroforaminal stenosis. L3-L4: No central canal stenosis. No right neuroforaminal stenosis. No left neuroforaminal stenosis. L4-L5: Mild central disc protrusion. Mild central canal stenosis. Mild bilateral facet arthropathy. N o right neuroforaminal stenosis. No left neuroforaminal stenosis. L5-S1: Mild bilateral facet arthropathy. No central canal stenosis. No right neuroforaminal stenosis. No left neuroforaminal stenosis. Visualized sacrum and pelvis: Visualized sacrum is intact. No abdominal aortic aneurysm. Right renal cyst. IMPRESSION: Mild central disc protrusion at L4-5, resulting in mild central canal stenosis. Reviewed by: Aleah Alexis MD on 08/01/2023 10:43 AM PDT Approved by: Aleah Alexis MD on 08/01/2023 10:43 AM PDT Station ID: [id number]
== END 2023-08-01 08:06 | disposition home or self-care (01) ==
LOC: DI 08:05
PROVIDERS: ATTEND Family Medicine
DX: M51.26 Other intervertebral disc displacement, lumbar region (principal); M47.816 Spondylosis without myelopathy or radiculopathy, lumbar region; M47.817 Spondylosis without myelopathy or radiculopathy, lumbosacral region; M48.061 Spinal stenosis, lumbar region without neurogenic claudication